=== PATIENT | female | born 1965 | race Caucasian/White ===

== ENCOUNTER 2020-10-12 15:46 | Outpatient (CLI) | payer OTHER, SELFPAY ==
--- NOTE | ~2020-10-12 | MM_ITS ---
EXAMINATION: MM screening adri BI w ryan HISTORY: Screening mammogram, family history of breast cancer in her mother. TECHNIQUE: Craniocaudal and mediolateral oblique 3-D tomosynthesis images were obtained and synthetic 2-D images were generated. CAD analysis was submitted and interpreted. COMPARISON: 03/13/2018 BREAST PARENCHYMAL COMPOSITION: The breasts are heterogeneously dense, which may obscure small masses . FINDINGS: There is no evidence of suspicious mass, calcification, or architectural distortion to sugg est malignancy in either breast. There has been no suspicious interval change. IMPRESSION: 1. No mammographic evidence of malignancy. 2. Recommend routine screening mammography in one year. BI-RADS Category 1: Negative Reviewed, dictated and finalized at location A.
== END 2020-10-12 15:47 | disposition home or self-care (01) ==
LOC: ANHIMG 15:48
PROVIDERS: PCP Nurse Practitioner Family; Visit Provider Nurse Practitioner Family
DX: Z12.31 Encounter for screening mammogram for malignant neoplasm of breast (principal)
CPT/HCPCS: 77063; 77067

== ENCOUNTER 2021-01-03 12:24 | Outpatient (CLI) | payer OTHER, SELFPAY ==
[2021-01-03 14:51] LABS: SARS-CoV-2 RNA PCR Negative (Negative)
== END 2021-01-03 12:25 | disposition home or self-care (01) ==
LOC: CHSLAB 12:28
PROVIDERS: PCP Nurse Practitioner Family; Visit Provider Nurse Practitioner Family
DX: R05 Cough (principal); Z20.822 Contact with and (suspected) exposure to COVID-19
CPT/HCPCS: C9803; U0003; U0005

== ENCOUNTER 2021-05-08 02:53 | Day surgery (SDC) | payer OTHER, SELFPAY ==
[2021-04-20 14:26] VITALS: BMI 27.6
--- NOTE | 2021-05-05 16:31 | PM.HPGS ---
History of Present Illness History of Present Illness Consent: Risks, benefits, and alternatives have been discussed and questions answered. Patient agrees to proceed with procedure. Chief complaint: hx colon polyps Narrative: Fouzia Lan is a 55 year old female with history of colon polyps and also family history of colon cancer. her last colonoscopy was nearly 4 years ago Review of Systems Review of Systems: All systems reviewed & are unremarkable except as noted in HPI and below PMFSH Family History Family History Sibling Depression Mother Hypertension Colon polyp Family history of malignant neoplasm of breast in first degree relative Father Family history of lung cancer Social History Social History Smoking packs per day: 0.5 Smoking cigarettes per day: 10.0 Years smoked: 35 Smoking pack-years: 17.50 Smoking status: Former smoker Tobacco type: cigarettes Alcohol intake: current Drinks per week: 10 Living arrangements: with family Spiritual care concerns: No Meds Home Medications and Allergies Home Medications Medication Instructions Recorded Confirmed Type citalopram 20 mg PO DAILY 04/10/19 05/08/21 History metoprolol tartrate 25 mg PO DAILY 04/10/19 05/08/21 History omeprazole 20 mg PO DAILY 04/20/21 05/08/21 History Allergies Allergy/AdvReac Type Severity Reaction Status Date / Time No Known Allergies Allergy Verified 05/08/21 07:36 Exam Const: General: alert Orientation/consciousness: patient oriented x3 Resp: Auscultation: clear to auscultation bilaterally Cardio: Rhythm: regular rhythm GI: GI Palp: Yes Soft to palpation and No Tenderness to palpation present (GI) Neuro: General: patient oriented x3 Assessment and Plan Assessment and plan (1) Colon cancer screening: Code(s): Z12.11 - Encounter for screening for malignant neoplasm of colon Status: Acute Assessment and Plan: Colonoscopy with possible biopsy or polypectomy or cautery or injection of substances.
[2021-05-08 07:37] VITALS: BP 145/96; PULSE 71; RESP 16; TEMP 37.1; O2SAT 98
[2021-05-08] MEDS: LACTATED RINGERS 1,000 ML 150 ML IV CONT (07:41)
--- NOTE | 2021-05-08 08:07 | P.PNAN_ITS ---
Anes - Initial Pre Proc Eval Procedure: Operation Date: 05/08/21 08:30 Proposed Procedures p Screening Colonoscopy - Mat Lockhart MD Date/Time: 05/08/21 08:07 Surgeon: Mat Lockhart MD Pre Op Diagnosis: hx colon polyps Patient Data Age: 55 Gender: F Height: 1.63 m Weight: 75 kg Last Vital Signs Temp 98.7 F 05/08/21 07:37 Pulse 71 05/08/21 07:37 Resp 16 05/08/21 07:37 BP 145/96 H 05/08/21 07:37 Pulse Ox 98 05/08/21 07:37 Allergies Allergy/AdvReac Type Severity Reaction Status Date / Time No Known Allergies Allergy Verified 05/08/21 07:36 Home Medications Medication Instructions Recorded Confirmed Type citalopram 20 mg PO DAILY 04/10/19 05/08/21 History metoprolol tartrate 25 mg PO DAILY 04/10/19 05/08/21 History omeprazole 20 mg PO DAILY 04/20/21 05/08/21 History Patient hx anesthesia problems: none Family hx anesthesia problems: none Results Review: All pre-operative results and documents have been reviewed as part of the pre-operative evaluation. [facility] Past Medical History Medical History (Updated 05/08/21 @ 08:04 by Nickolas Griffin MD) Hypertension Mitral valve prolapse Family History Family History Sibling Depression Mother Hypertension Colon polyp Family history of malignant neoplasm of breast in first degree relative Father Family history of lung cancer Social History Social History Smoking packs per day: 0.5 Smoking cigarettes per day: 10.0 Years smoked: 35 Smoking pack-years: 17.50 Smoking status: Former smoker Tobacco type: cigarettes Alcohol intake: current Drinks per week: 10 Living arrangements: with family Spiritual care concerns: No Anes - Eval Final PreProcedure Day of Procedure 05/08/21 08:07 Patient weight: overweight Heart: regular rate and rhythm Lungs: clear to auscultation Airway: Mallampati scale class II Neurological: alert and oriented Last oral intake: >/= 8 hours ASA classification: III Emergent: no Anesthetic plan: proceed Anesthesia type and monitoring: general GIVS and standard monitoring Results Review: All pre-operative results and documents have been reviewed as part of the pre-operative evaluation. Informed Consent: The patient's anesthetic plan and its attendant risks and benefits were discussed with the patient/family/POA. Questions were solicited and answers provided to the satisfaction of the patient/family/POA.
[2021-05-08 08:38] VITALS: BP 111/68; PULSE 85; RESP 23; O2SAT 95
[2021-05-08 08:48] VITALS: BP 118/62; PULSE 78; RESP 24; O2SAT 97
[2021-05-08 08:58] VITALS: BP 126/65; PULSE 76; RESP 20; O2SAT 91
== END 2021-05-08 09:11 | disposition home or self-care (01) ==
PROVIDERS: PCP Nurse Practitioner Family; Visit Provider Internal Medicine Gastroenterology
PROC: 0DJD8ZZ Inspection of Lower Intestinal Tract, Via Natural or Artificial Opening Endoscopic (ICD-10-PCS; CPT 45378; principal; 2021-05-08 08:30)
DX: Z12.11 Encounter for screening for malignant neoplasm of colon (principal); Z80.0 Family history of malignant neoplasm of digestive organs; Z87.891 Personal history of nicotine dependence
CPT/HCPCS: 45378; J2704; J7120

== ENCOUNTER 2021-12-08 12:36 | Outpatient (CLI) | payer OTHER, SELFPAY ==
--- NOTE | 2021-12-08 | ECHO_ITS ---
Patient Info Name: Fouzia Lan Age: 56 years : 1965 Gender: Female Ht: 64 in Wt: 160 lbs BSA: 1.83 m2 HR: 71 bpm BP: 148 / 94 mmHg Technical Quality: Good Exam Date: 12/08/2021 2:06 PM Exam Location: [facility] Patient Status: Outpatient Admit Date: 12/08/2021 Staff Ordering Physician: Ronnell, Abrahan Mcbride MD Animal Husbandry Technician: Ely Martin RDCS Attending Provider: Tori, Abrahan Mcbride MD Referring Physician: Ronnell MARQUEZ; Exam Type: CA echo doppler color flow Study Info Indications R76.8 - POSITIVE ROMEO (ANTINUCLEAR ANTIBODY) 173.00 - RAYNAUDS DISEASE WITHOUT GANGRENE Complete two-dimensional, color flow and Doppler transthoracic echocardiogram is performed. Summary 1. Complete two-dimensional, color flow and Doppler transthoracic echocardiogram is performed. 2. Left ventricular chamber dimension is normal. 3. Left ventricular systolic function is normal, estimated at 65-70%. 4. There is mildly increased left ventricular wall thickness. 5. The left ventricular diastolic function is grade II diastolic dysfunction. 6. E/e' 15 is elevated. 7. Mild right ventricular hypertrophy. 8. Left atrial chamber dimension is mildly enlarged. 9. Right atrial chamber dimension is mildly enlarged. 10. No pulmonary hypertension, estimated pulmonary arterial systolic pressure is 36 mmHg. 11. There is small circumferential pericardial effusion measured at 0.7 cm posteriorly. Left Ventricle E/e' 15 is elevated. Left ventricular chamber dimension is normal. Left ventricular systolic function is normal, estimated at 65-70%. There is mildly increased left ventricular wall thickness. The left ventricular diastolic function is grade II diastolic dysfunction. Right Ventricle Right ventricular systolic function is normal and with normal TAPSE 2.2 cm. Mild right ventricular hypertrophy. Right ventricular chamber dimension is normal. Left Atria Left atrial chamber dimension is mildly enlarged. Right Atria Right atrial chamber dimension is mildly enlarged. Aortic Valve The aortic valve is trileaflet. There is no aortic valve stenosis. There is no aortic valve regurgitation. Pulmonic Valve There is no pulmonic regurgitation. Mitral Valve There is no mitral valve stenosis. There is no mitral valve regurgitation. Tricuspid Valve There is no tricuspid valve regurgitation. No pulmonary hypertension, estimated pulmonary arterial systolic pressure is 36 mmHg. Pericardium/Pleural There is small circumferential pericardial effusion measured at 0.7 cm posteriorly. No cardiac tamponade. Inferior Vena Cava Normal inferior vena cava with >50% collapse upon inspiration consistent with normal right atrial pressure, 5 mmHg. Aorta The aortic root size at the sinus of Valsalva is normal. Left Ventricular Outflow Tract Name Value Normal LVOT 2D LVOT Diameter 2.0 cm LVOT Doppler LVOT Peak Gradient 4 mmHg LVOT Mean Gradient 2 mmHg LVOT VTI 18 cm LVOT VTI/AV VTI Ratio 0.7
--- NOTE | 2021-12-08 15:01 | WPDPFTINT ---
PFT Procedure Performed PFT Procedure Performed Plethysmography (Lung Vol) Diffusing Cap (DLCO) Flow Vol Loop Spirometry w/o Bronchodil PFT Interpretation This is a pulmonary function test with spirometry, plethysmography and diffusing capacity. The test was performed and results interpreted in accordance with the 2019 and 2005 ATS/ERS Task Force guidelines respectively using the Global Lung Function Initiative-2012 reference equations. Patient demonstrated good effort and cooperation. Reproducibility criteria were met. The quality of the spirometry maneuver was Grade B. Findings: Spirometry: there is decreased maximal expiratory airflow at low lung volumes with a concave expiratory flow tracing. The contour the inspiratory flow tracing is normal. The FVC is 2.72 L, 83% predicted. The FEV1 is 1.84 L, 71% predicted. The FEV1: FVC ratio 68%. Plethysmography: The total lung capacity is 4.59 L, 90% predicted. The functional residual capacity is 2.19 L, 76% predicted. The residual volume is 1.78 L, 92% predicted. Diffusion capacity: The diffusion capacity unadjusted for hemoglobin and carboxyhemoglobin is 9.2, 42% predicted. Diffusing capacity adjusted for alveolar volume is 2.40, 54% predicted. Impression: The spirometry is normal without evidence of an obstructive abnormality. The lung volumes are normal. The diffusing capacity unadjusted for hemoglobin is moderately decreased and remains moderately decreased when adjusted for alveolar volume. There are no prior studies for comparison
== END 2021-12-08 12:37 | disposition home or self-care (01) ==
LOC: ANHPFT 12:37
PROVIDERS: PCP Nurse Practitioner Family; Visit Provider Internal Medicine Rheumatology
DX: I73.00 Raynaud's syndrome without gangrene (principal)
CPT/HCPCS: 93306; 94375; 94726; 94729

== ENCOUNTER 2022-04-24 07:04 | Outpatient (CLI) | payer OTHER, SELFPAY ==
[2022-04-24 07:48] LABS: Basophils Percent Auto 0.4 % (0.2-1.2); Eosinophils Absolute Auto 0.3 K/mm3 (0-0.3); Eosinophils Percent Auto 4.1 % (0-4.4); Hematocrit 45.7 % (37.0-47.0); Immature Granulocyte Absolute 0.03 K/mm3 (0.00-0.031); Immature Granulocyte Percent A 0.4 % (0-0.5); Lymphocytes Absolute Auto 1.51 K/mm3 (0.9-3.2); Lymphocytes Percent Auto 22.3 % (18.3-44.2); Mean Corpuscular HGB Conc 32.8 g/dl (32-36); Mean Corpuscular Hemoglobin 30.7 pg (26-34); Mean Corpuscular Volume 93.5 fl (80-100); Mean Platelet Volume 10.7 fl (7.4-10.4); Monocytes Absolute Auto 0.7 K/mm3 (0.1-0.6); Monocytes Percent Auto 10.5 % (2.6-8.5); Neutrophils Absolute Auto 4.2 K/mm3 (1.3-6.7); Neutrophils Percent Auto 62.3 % (45.5-73.1); Platelet Count Result 169 k/mm3 (150-375); Red Blood Count 4.89 M/mm3 (4.2-5.4); Red Cell Distribution Width 14.6 % (11.5-14.5); White Blood Count 6.8 K/mm3 (4.5-10.0)
[2022-04-24 07:58] LABS: Alanine Aminotransferase 24 U/L (6-35); Albumin Level 4.4 g/dL (3.5-5.1); Alkaline Phosphatase 70 U/L (38-126); Anion Gap 8 mmol/L (8-16); Aspartate Amino Transferase 25 U/L (14-36); Bilirubin,Total 0.6 mg/dL (0.2-1.3); Blood Urea Nitrogen 16 mg/dL (7-17); CRP < 0.5 mg/dL (<1.0); Calcium 9.2 mg/dL (8.4-10.2); Carbon Dioxide 26 mmol/L (22-30); Chloride 108 mmol/L (98-107); Creatine Kinase 109 U/L (30-135); Estimated Glomerular Filt Rate 42; Glucose 94 mg/dL (65-110); Lactate Dehydrogenase 168 U/L (120-246); Potassium 3.9 mmol/L (3.4-5.0); Sodium 142 mmol/L (137-145)
[2022-04-24 09:34] LABS: Erythrocyte Sedimentation Rate 7 mm/hr (0-20)
[2022-04-30 13:24] LABS: Lupus dRVVT Screen 39 sec (<=45); PTT-LA Screen 36 sec (<=40)
[2022-05-05 13:46] LABS: TPMT Activity 17
== END 2022-04-24 07:05 | disposition home or self-care (01) ==
PROVIDERS: PCP Nurse Practitioner Family; Visit Provider Internal Medicine Rheumatology
DX: M34.9 Systemic sclerosis, unspecified (principal)
CPT/HCPCS: 36415; 80053; 82085; 82550; 82657; 83615; 85025; 85613; 85652; 85730; 86140; 86146

== ENCOUNTER 2022-09-26 07:54 | Outpatient (CLI) | payer OTHER, SELFPAY ==
[2022-09-26 08:30] LABS: Basophils Percent Auto 0.4 % (0.2-1.2); Eosinophils Absolute Auto 0.3 K/mm3 (0-0.3); Eosinophils Percent Auto 3.8 % (0-4.4); Hematocrit 41.8 % (37.0-47.0); Hemoglobin 13.6 g/dL (12.0-15.0); Immature Granulocyte Absolute 0.03 K/mm3 (0.00-0.031); Immature Granulocyte Percent A 0.4 % (0-0.5); Lymphocytes Percent Auto 22.2 % (18.3-44.2); Mean Corpuscular HGB Conc 32.5 g/dl (32-36); Mean Corpuscular Hemoglobin 30.3 pg (26-34); Mean Corpuscular Volume 93.1 fl (80-100); Mean Platelet Volume 10.5 fl (7.4-10.4); Monocytes Percent Auto 13.2 % (2.6-8.5); Neutrophils Absolute Auto 4.6 K/mm3 (1.3-6.7); Platelet Count Result 194 k/mm3 (150-375); Red Blood Count 4.49 M/mm3 (4.2-5.4); White Blood Count 7.7 K/mm3 (4.5-10.0)
[2022-09-26 08:33] LABS: Appearance Urine Cloudy (Clear); Bacteria Urine None Seen /hpf; Bilirubin Urine Negative (Negative); Blood Urine Negative (Negative); Color Urine Yellow (Yellow); Glucose Urine UA Negative (Negative); Ketones Urine Negative (Negative); Leukocyte Esterase Ur 1+ LEU/UL (Negative); Nitrate Urine Negative (Negative); Non Pathogenic Casts 0-2; Protein Urine 1+ mg/dL (Negative); RBC Urine 0-2 /hpf (0-2); Specific Grav Ur 1.014 (1.001-1.035); Squamous Epithelial Cell Urine Few /hpf (Few); Urobilinogen Urine 0.2 mg/dL (<2.0); pH Urine 5.5 (5.0-9.0)
[2022-09-26 08:44] LABS: Alanine Aminotransferase 48 U/L (6-35); Alkaline Phosphatase 78 U/L (38-126); Anion Gap 8 mmol/L (8-16); Aspartate Amino Transferase 24 U/L (14-36); Bilirubin,Total 0.7 mg/dL (0.2-1.3); Blood Urea Nitrogen 21 mg/dL (7-17); CRP 0.5 mg/dL (<1.0); Calcium 8.8 mg/dL (8.4-10.2); Carbon Dioxide 23 mmol/L (22-30); Chloride 109 mmol/L (98-107); Creatine Kinase 96 U/L (30-135); Estimated Glomerular Filt Rate 46; Glucose 101 mg/dL (65-110); Sodium 140 mmol/L (137-145)
[2022-09-26 08:44] LABS: Add Urine Microscopic? YES
[2022-09-26 09:20] LABS: Erythrocyte Sedimentation Rate 13 mm/hr (0-20)
[2022-09-30 04:59] LABS: Aldolase 5.4 U/L (<=8.1)
== END 2022-09-26 07:55 | disposition home or self-care (01) ==
PROVIDERS: PCP Nurse Practitioner Family; Visit Provider Internal Medicine Rheumatology
DX: R76.8 Other specified abnormal immunological findings in serum (principal); M34.9 Systemic sclerosis, unspecified
CPT/HCPCS: 36415; 80053; 81001; 82085; 82550; 85025; 85652; 86140; 87086; 87088

== ENCOUNTER 2022-10-25 11:40 | Outpatient (CLI) | payer OTHER, SELFPAY ==
[2022-10-25 12:08] LABS: Basophils Percent Auto 0.4 % (0.2-1.2); Eosinophils Absolute Auto 0.2 K/mm3 (0-0.3); Eosinophils Percent Auto 1.9 % (0-4.4); Hematocrit 44.2 % (37.0-47.0); Hemoglobin 14.2 g/dL (12.0-15.0); Immature Granulocyte Absolute 0.02 K/mm3 (0.00-0.031); Immature Granulocyte Percent A 0.2 % (0-0.5); Lymphocytes Absolute Auto 1.39 K/mm3 (0.9-3.2); Lymphocytes Percent Auto 16.7 % (18.3-44.2); Mean Corpuscular HGB Conc 32.1 g/dl (32-36); Mean Corpuscular Hemoglobin 29.7 pg (26-34); Mean Corpuscular Volume 92.5 fl (80-100); Mean Platelet Volume 10.6 fl (7.4-10.4); Monocytes Absolute Auto 0.8 K/mm3 (0.1-0.6); Monocytes Percent Auto 9.3 % (2.6-8.5); Neutrophils Percent Auto 71.5 % (45.5-73.1); Platelet Count Result 191 k/mm3 (150-375); Red Blood Count 4.78 M/mm3 (4.2-5.4); Red Cell Distribution Width 13.8 % (11.5-14.5); White Blood Count 8.3 K/mm3 (4.5-10.0)
[2022-10-25 12:12] LABS: Appearance Urine Clear (Clear); Bacteria Urine None Seen /hpf; Bilirubin Urine Negative (Negative); Blood Urine Negative (Negative); Color Urine Yellow (Yellow); Glucose Urine UA Negative (Negative); Ketones Urine Negative (Negative); Leukocyte Esterase Ur Trace LEU/UL (Negative); Nitrate Urine Negative (Negative); Non Pathogenic Casts 0-2; Protein Urine Trace mg/dL (Negative); RBC Urine 0-2 /hpf (0-2); Specific Grav Ur 1.008 (1.001-1.035); Squamous Epithelial Cell Urine None seen /hpf (Few); Urobilinogen Urine 0.2 mg/dL (<2.0); WBC Urine 0-5 /hpf; pH Urine 5.5 (5.0-9.0)
[2022-10-25 12:31] LABS: Add Urine Microscopic? YES
[2022-10-25 12:32] LABS: Alanine Aminotransferase 22 U/L (6-35); Albumin Level 4.2 g/dL (3.5-5.1); Alkaline Phosphatase 63 U/L (38-126); Anion Gap 9 mmol/L (8-16); Aspartate Amino Transferase 24 U/L (14-36); Bilirubin,Total 0.7 mg/dL (0.2-1.3); Blood Urea Nitrogen 23 mg/dL (7-17); CRP < 0.5 mg/dL (<1.0); Calcium 8.9 mg/dL (8.4-10.2); Carbon Dioxide 23 mmol/L (22-30); Chloride 106 mmol/L (98-107); Creatine Kinase 101 U/L (30-135); Estimated Glomerular Filt Rate 46; Glucose 101 mg/dL (65-110); Sodium 138 mmol/L (137-145)
[2022-10-25 13:47] LABS: Erythrocyte Sedimentation Rate 8 mm/hr (0-20)
[2022-10-31 18:28] LABS: Aldolase 5.2 U/L (<=8.1)
== END 2022-10-25 11:41 | disposition home or self-care (01) ==
LOC: ANHLAB 11:44
PROVIDERS: PCP Nurse Practitioner Family; Visit Provider Internal Medicine Rheumatology
DX: M34.9 Systemic sclerosis, unspecified (principal); Z51.81 Encounter for therapeutic drug level monitoring
CPT/HCPCS: 36415; 80053; 81001; 82085; 82550; 85025; 85652; 86140

== ENCOUNTER 2022-12-28 07:41 | Outpatient (CLI) | payer OTHER, SELFPAY ==
[2022-12-28 08:30] LABS: Basophils Percent Auto 0.6 % (0.2-1.2); Eosinophils Absolute Auto 0.2 K/mm3 (0-0.3); Eosinophils Percent Auto 2.4 % (0-4.4); Hematocrit 44.5 % (37.0-47.0); Hemoglobin 14.4 g/dL (12.0-15.0); Immature Granulocyte Absolute 0.02 K/mm3 (0.00-0.031); Immature Granulocyte Percent A 0.3 % (0-0.5); Lymphocytes Absolute Auto 1.51 K/mm3 (0.9-3.2); Lymphocytes Percent Auto 22.4 % (18.3-44.2); Mean Corpuscular HGB Conc 32.4 g/dl (32-36); Mean Corpuscular Hemoglobin 29.6 pg (26-34); Mean Corpuscular Volume 91.6 fl (80-100); Monocytes Absolute Auto 0.7 K/mm3 (0.1-0.6); Monocytes Percent Auto 9.9 % (2.6-8.5); Neutrophils Absolute Auto 4.4 K/mm3 (1.3-6.7); Neutrophils Percent Auto 64.4 % (45.5-73.1); Platelet Count Result 195 k/mm3 (150-375); Red Blood Count 4.86 M/mm3 (4.2-5.4); Red Cell Distribution Width 14.1 % (11.5-14.5); White Blood Count 6.8 K/mm3 (4.5-10.0)
[2022-12-28 08:40] LABS: Appearance Urine Clear (Clear); Bacteria Urine Rare /hpf; Bilirubin Urine Negative (Negative); Blood Urine Negative (Negative); Color Urine Yellow (Yellow); Glucose Urine UA Negative (Negative); Ketones Urine Negative (Negative); Leukocyte Esterase Ur 1+ LEU/UL (Negative); Nitrate Urine Negative (Negative); Non Pathogenic Casts 0-2; Protein Urine 1+ mg/dL (Negative); RBC Urine 0-2 /hpf (0-2); Specific Grav Ur 1.014 (1.001-1.035); Squamous Epithelial Cell Urine Few /hpf (Few); Urobilinogen Urine 0.2 mg/dL (<2.0); pH Urine 5.5 (5.0-9.0)
[2022-12-28 08:41] LABS: Add Urine Microscopic? YES
[2022-12-28 08:51] LABS: Alanine Aminotransferase 19 U/L (6-35); Albumin Level 4.3 g/dL (3.5-5.1); Alkaline Phosphatase 78 U/L (38-126); Anion Gap 8 mmol/L (8-16); Aspartate Amino Transferase 24 U/L (14-36); Bilirubin,Total 0.6 mg/dL (0.2-1.3); Blood Urea Nitrogen 18 mg/dL (7-17); CRP < 0.5 mg/dL (<1.0); Calcium 9.2 mg/dL (8.4-10.2); Carbon Dioxide 25 mmol/L (22-30); Chloride 107 mmol/L (98-107); Creatine Kinase 113 U/L (30-135); Estimated Glomerular Filt Rate 46; Glucose 84 mg/dL (65-110); Potassium 4.2 mmol/L (3.4-5.0); Sodium 140 mmol/L (137-145)
[2022-12-28 11:17] LABS: Erythrocyte Sedimentation Rate 11 mm/hr (0-20)
[2023-01-01 22:17] LABS: Aldolase 6.1 U/L (<=8.1)
== END 2022-12-28 07:42 | disposition home or self-care (01) ==
PROVIDERS: Visit Provider Internal Medicine Rheumatology
DX: Z51.81 Encounter for therapeutic drug level monitoring (principal); M34.9 Systemic sclerosis, unspecified
CPT/HCPCS: 36415; 80053; 81001; 82085; 82550; 85025; 85652; 86140; 87086; 87088

== ENCOUNTER 2023-02-08 07:59 | Outpatient (CLI) | payer OTHER, SELFPAY ==
[2023-02-08 09:02] LABS: Cholesterol 254 mg/dL (0-200); HDL Direct 47 mg/dL; Triglycerides 183 mg/dL (<150)
[2023-02-08 09:13] LABS: LDL Cholesterol Direct 148 mg/dL
== END 2023-02-08 08:00 | disposition home or self-care (01) ==
PROVIDERS: Visit Provider Nurse Practitioner Family
DX: Z13.220 Encounter for screening for lipoid disorders (principal); Z13.29 Encounter for screening for other suspected endocrine disorder
CPT/HCPCS: 36415; 80053; 80061; 81001; 82085; 82550; 84443; 85025; 85652; 86140; 87086; 87088

== ENCOUNTER 2023-08-14 08:10 | Outpatient (RCR) | payer OTHER, SELFPAY ==
[2023-08-14 08:44] LABS: Appearance Urine Clear (Clear); Bacteria Urine None Seen /hpf; Bilirubin Urine Negative (Negative); Blood Urine Negative (Negative); Color Urine Yellow (Yellow); Glucose Urine UA Negative (Negative); Ketones Urine Negative (Negative); Leukocyte Esterase Ur Negative LEU/UL (Negative); Nitrate Urine Negative (Negative); Non Pathogenic Casts 0-2; Protein Urine 1+ mg/dL (Negative); RBC Urine 0-2 /hpf (0-2); Specific Grav Ur 1.014 (1.001-1.035); Squamous Epithelial Cell Urine None Seen /hpf (Few); Urobilinogen Urine 0.2 mg/dL (<2.0); WBC Urine 0-5 /hpf (0-3); pH Urine 5.5 (5.0-9.0)
[2023-08-14 08:51] LABS: Add Urine Microscopic? YES
[2023-08-14 09:10] LABS: Alanine Aminotransferase 14 U/L (6-35); Albumin Level 4.1 g/dL (3.5-5.1); Alkaline Phosphatase 77 U/L (38-126); Anion Gap 7 mmol/L (8-16); Aspartate Amino Transferase 22 U/L (14-36); Bilirubin,Total 0.6 mg/dL (0.2-1.3); Blood Urea Nitrogen 20 mg/dL (7-17); CRP < 0.5 mg/dL (<1.0); Calcium 9.2 mg/dL (8.4-10.2); Carbon Dioxide 22 mmol/L (22-30); Chloride 109 mmol/L (98-107); Creatine Kinase 102 U/L (30-135); Estimated Glomerular Filt Rate 46; Glucose 95 mg/dL (65-110); Potassium 3.8 mmol/L (3.4-5.0); Sodium 138 mmol/L (137-145)
[2023-08-14 09:16] LABS: Basophils Percent Auto 0.4 % (0.2-1.2); Eosinophils Absolute Auto 0.2 K/mm3 (0-0.3); Eosinophils Percent Auto 3.1 % (0-4.4); Hematocrit 45.1 % (37.0-47.0); Hemoglobin 14.4 g/dL (12.0-15.0); Immature Granulocyte Absolute 0.03 K/mm3 (0.00-0.031); Immature Granulocyte Percent A 0.4 % (0-0.5); Lymphocytes Absolute Auto 1.63 K/mm3 (0.9-3.2); Mean Corpuscular HGB Conc 31.9 g/dl (32-36); Mean Corpuscular Hemoglobin 29.1 pg (26-34); Mean Corpuscular Volume 91.3 fl (80-100); Mean Platelet Volume 11.1 fl (7.4-10.4); Monocytes Absolute Auto 0.8 K/mm3 (0.1-0.6); Monocytes Percent Auto 10.3 % (2.6-8.5); Neutrophils Percent Auto 64.8 % (45.5-73.1); Platelet Count Result 183 k/mm3 (150-375); Red Blood Count 4.94 M/mm3 (4.2-5.4); Red Cell Distribution Width 14.8 % (11.5-14.5); White Blood Count 7.8 K/mm3 (4.5-10.0)
[2023-08-14 10:55] LABS: Erythrocyte Sedimentation Rate 13 mm/hr (0-20)
[2023-08-18 10:03] LABS: Aldolase 5.2 U/L (<=8.1)
== END 2023-11-12 23:59 | disposition home or self-care (01) ==
LOC: ANHLAB 08:10
PROVIDERS: Visit Provider Internal Medicine Rheumatology
DX: Z51.81 Encounter for therapeutic drug level monitoring (principal); M34.9 Systemic sclerosis, unspecified; Z79.899 Other long term (current) drug therapy
CPT/HCPCS: 36415; 80053; 82085; 82550; 85025; 85652; 86140

== ENCOUNTER 2023-08-28 08:50 | Emergency (ER) | payer OTHER, SELFPAY ==
[2023-08-28 09:01] VITALS: BP 127/84; PULSE 87; RESP 18; TEMP 36.9; O2SAT 97
--- NOTE | 2023-08-28 09:22 | ED.URI ---
HPI - URI/Sore Throat General Chief Complaint: Upper Respiratory Infection Stated Complaint: Sinus Infection Time Seen by Provider: 08/28/23 09:03 Source: patient and RN notes reviewed Mode of arrival: ambulatory Limitations: no limitations History of Present Illness HPI Narrative: Patient presents today with a 3 day history of nasal congestion, cough, bilateral ear pain, headache, sore throat. Denies fever. States she is short of breath at baseline, but no worse than normal. Currently rates her pain 2/10 has been taking ibuprofen and Mucinex with little relief. Reports that she took 2 doses of cefuroxime at home that was left over from a 's prescription, which did also not provide any relief. Patient has history of scleroderma, but takes no medication for it. Related Data Home Medications Medication Instructions Recorded Confirmed citalopram 20 mg tablet 40 mg PO DAILY 04/10/19 08/28/23 metoprolol tartrate 25 mg tablet 25 mg PO DAILY 04/10/19 08/28/23 omeprazole 20 mg capsule,delayed 20 mg PO DAILY 04/20/21 08/28/23 release mycophenolate mofetil 500 mg tablet 500 mg PO BID 08/28/23 08/28/23 nifedipine 30 mg tablet,extended 30 mg PO DAILY 08/28/23 08/28/23 release 24 hr Allergies Allergy/AdvReac Type Severity Reaction Status Date / Time No Known Allergies Allergy Verified 08/28/23 08:51 Review of Systems Review of Systems: CONSTITUTIONAL: Denies body aches, fever, chills, or sweats. EYES: Denies visual changes, redness, or discharge. ENT: Denies rhinorrhea. + congestion, sore throat, ear pain CARDIOVASCULAR: Denies chest pain, palpitations, or edema. RESPIRATORY: Denies worse dyspnea.+ cough GASTROINTESTINAL: Denies abdominal pain, nausea, vomiting, or diarrhea. GENITOURINARY: Denies dysuria or hematuria. SKIN: Denies rash, itching, or wounds. MUSCULOSKELETAL: Denies back pain, joint pain, or myalgia. NEUROLOGIC: Denies numbness, tingling, or weakness.+ headache PSYCH: Denies depression or anxiety. PMF Past Medical History Medical History Hypertension Mitral valve prolapse Family History Family History Sibling Depression Mother Hypertension Colon polyp Family history of malignant neoplasm of breast in first degree relative Father Family history of lung cancer Social History Social History Smoking packs per day: 0.5 Smoking cigarettes per day: 10.0 Years smoked: 35 Smoking pack-years: 17.50 Smoking status: Former smoker Tobacco type: cigarettes Alcohol intake: current Drinks per week: 10 Living arrangements: with family Spiritual care concerns: No Comments At time of signature, I have reviewed and agree with nursing past medical, surgical, social and family history unless otherwise noted. Please see nursing chart for further information. There is no relevant family history pertinent to the presenting complaint Exam Narrative: GENERAL: Mildly ill-appearing, well-nourished, and in no acute distress. HEAD: Normocephalic, atraumatic. EYES: EOMI. No redness or drainage. Conjunctivae normal. ENT: Mucous membranes pink and moist. Nares congestive. No rhinorrhea. Turbinates appear normal. TMs normal bilaterally. Throat normal. Uvula midline. NECK: Normal AROM. Supple. No lymphadenopathy. CHEST: No respiratory distress. Clear to auscultation. HEART: Regular rate and rhythm. No murmur appreciated. EXTREMITIES: Normal range of motion. No edema. SKIN: Warm, dry, no rash. Capillary refill normal. Normal skin turgor. NEURO: No focal deficits. Alert and oriented x3. Gait steady. PSYCH: Normal affect. No signs of depression or anxiety. Course Course Level of Care: Express Care Visit Vital Signs Vital signs: Vital Signs Temperature 98.4 F 08/28/23 09:01
== END 2023-08-28 09:22 | disposition home or self-care (01) ==
PROVIDERS: Emergency Provider Nurse Practitioner
DX: J06.9 Acute upper respiratory infection, unspecified (principal); Z20.822 Contact with and (suspected) exposure to COVID-19; Z87.891 Personal history of nicotine dependence; I10 Essential (primary) hypertension; I34.1 Nonrheumatic mitral (valve) prolapse; M34.9 Systemic sclerosis, unspecified
CPT/HCPCS: 87426; 87804; 99213; G0463

== ENCOUNTER 2023-11-21 07:43 | Outpatient (CLI) | payer OTHER, SELFPAY ==
[2023-11-21 08:47] LABS: Cholesterol 249 mg/dL (0-200); HDL Direct 56 mg/dL; Triglycerides 178 mg/dL (<150)
[2023-11-21 08:57] LABS: LDL Cholesterol Direct 154 mg/dL
[2023-11-21 09:11] LABS: Hemoglobin A1C 5.5 % (<5.7)
[2023-11-21 09:55] LABS: Free T4 Free Thyroxine Reflex 1.16 ng/dL (0.78-2.19)
[2023-11-21 10:55] LABS: Total Triiodothyronine (T3) 1.34 NG/ML (0.97-1.69)
== END 2023-11-21 07:44 | disposition home or self-care (01) ==
PROVIDERS: PCP Nurse Practitioner Family
DX: E78.5 Hyperlipidemia, unspecified (principal); R35.1 Nocturia; R53.83 Other fatigue
CPT/HCPCS: 36415; 80061; 83036; 84439; 84443; 84480

== ENCOUNTER 2023-12-13 11:42 | Outpatient (CLI) | payer OTHER, SELFPAY ==
[2023-12-13 12:36] LABS: Hematocrit 45.1 % (37.0-47.0); Hemoglobin 14.5 g/dL (12.0-15.0); Mean Corpuscular HGB Conc 32.2 g/dl (32-36); Mean Corpuscular Hemoglobin 29.5 pg (26-34); Mean Corpuscular Volume 91.9 fl (80-100); Mean Platelet Volume 11.2 fl (7.4-10.4); Platelet Count Result 198 k/mm3 (150-375); Red Blood Count 4.91 M/mm3 (4.2-5.4); Red Cell Distribution Width 13.9 % (11.5-14.5); White Blood Count 9.3 K/mm3 (4.5-10.0)
[2023-12-13 12:58] LABS: Alanine Aminotransferase 17 U/L (6-35); Albumin Level 4.4 g/dL (3.5-5.1); Alkaline Phosphatase 74 U/L (38-126); Anion Gap 11 mmol/L (4-12); Aspartate Amino Transferase 22 U/L (14-36); Bilirubin,Total 0.8 mg/dL (0.2-1.3); Blood Urea Nitrogen 18 mg/dL (7-17); CRP 0.6 mg/dL (<1.0); Calcium 9.3 mg/dL (8.4-10.2); Carbon Dioxide 24 mmol/L (22-30); Chloride 106 mmol/L (98-107); Creatine Kinase 84 U/L (30-135); Estimated Glomerular Filt Rate 46; Glucose 102 mg/dL (65-110); Potassium 3.8 mmol/L (3.4-5.0); Sodium 141 mmol/L (137-145)
[2023-12-13 13:06] LABS: Erythrocyte Sedimentation Rate 11 mm/hr (0-20)
[2023-12-16 15:43] LABS: Aldolase 6.5 U/L (< OR = 8.1)
== END 2023-12-13 11:43 | disposition home or self-care (01) ==
LOC: ANHLAB 11:45
PROVIDERS: PCP Nurse Practitioner Family; Visit Provider Internal Medicine Rheumatology
DX: M34.9 Systemic sclerosis, unspecified (principal)
CPT/HCPCS: 36415; 80053; 82085; 82550; 85027; 85652; 86140

== ENCOUNTER 2024-07-13 07:08 | Outpatient (CLI) | payer OTHER, SELFPAY ==
--- OUTSIDE RECORDS SUMMARY | 2024-07-13 07:13 | XMS_ITS | Patient Health Summary ---
Author Organization [facility] Address [address] [place] [address] Care Team Providers Care Mathematical Scientist Name Role Phone Elisa Harris Primary Care Provider [phone] Note from [facility],non-owned Affiliates and Associated Physician Practices is amultiple site organization consisting of ambulatory clinics and hospital sitesin [place], [place], [place] and [place]. This disclosure is being madepursuant to the Care Everywhere program and may not contain all information available regarding this patient. Last updated 18.[facility] Allergies No known active allergies Medications * Be aware that medications may not be up to date on this document. Alwaysverify current medications with the patient. * metoprolol succinate XL 24hr (TOPROL XL) 25 MG tablet(Started 09/20/2021) Take 1 (one) tablet by mouth once daily * gentamicin (GARAMYCIN) 0.1 % topical ointment(Started 10/19/2021) Apply to affected area 3 times daily Reasons: Skin Ulcer 2 refills by 10/19/2022 * omeprazole (PriLOSEC) 20 MG capsule Take 1 (one) capsule by mouth 2 times daily, before breakfast and supper * citalopram (CeleXA) 40 MG tablet Take 1 (one) tablet by mouth once daily * NIFEdipine CR osmotic 24hr (Procardia-XL) 60 MG tablet Take 1 (one) tablet by mouth once daily * albuterol HFA (Proventil; Ventolin; Proair) 108 (90 Base) MCG/ACT inhaler (Started 02/13/2024) INHALE 2 PUFFS BY MOUTH EVERY 4 HOURS NEEDED FOR SHORTNESS OF BREATH 3 refills by 02/12/2025 * guaiFENesin ER 12hr (Mucinex) 600 MG tablet Take 1 (one) tablet by mouth every 12 hours * torsemide (Demadex) 5 MG tablet(Started 05/29/2024) Take 1 (one) tablet by mouth once daily 3 refills by 05/29/2025 * tadalafil, PAH, (Adcirca) 20 MG tablet(Started 06/11/2024) * macitentan (Opsumit) 10 MG tablet Take 1 (one) tablet by mouth once daily Ended Medications* amoxicillin-clavulanate (Augmentin) 875-125 MG tablet(Started 05/22/2024)(Discontinued) Take 1 (one) tablet by mouth 2 times daily with morning and evening meal Active Problems Problem Noted Date Diagnosed Date 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 05/20/2024 Recurrent major depressive disorder, in [facility] n 05/18/2024 Stage 3a chronic kidney disease 05/18/2024 Metabolic acidosis 05/18/2024 Dyspnea on exertion 05/17/2024 Elevated liver enzymes 05/17/2024 Scleroderma 06/08/2022 Shortness of breath 05/24/2022 Breast cancer screening 02/17/2009 Erythrocytosis 01/13/2009 Screening for condition 01/13/2009 Mood swings 01/03/2009 Esophageal reflux 01/03/2009 Hypertension 12/31/2008 Stroke 12/31/2008 Kidney damage 12/31/2008 MVP (mitral valve prolapse) 12/31/2008 Indigestion 12/31/2008 Immunizations * INFLUENZA VACCINE, TRIV. (AFLURIA, FLUZONE TRIVALENT; 6MO+) (IIV3)(Given 03/24/2015, 03/29/2014) * FLU VACCINE QUAD IIV4 SPLIT 0.25 ML IM(Given 03/05/2017) Social History Tobacco Use Types Packs/Day Years Used Date Smoking Tobacco: Former Cigarettes Q uit: 06/2022 Smokeless Tobacco: Never Tobacco Cessation:Counseling Given: Not Answered Alcohol Use Standard Drinks/Week Comments Yes 0 (1 standard drink = 0.6 oz pur e alcohol) daily AUDIT-C Answer Date Recorded Q1: How often do you have a drink containing alcohol? 4 or more times a week 05/29/2024 Q2: How many drinks containi ng alcohol do you have on a typical day when you are drinking? 1 or 2 Q3: How often do you have si x or more drinks on one occasion? Never 05/29/2024 PHQ-2 Answer Date Recorded Patient Health Questionnaire-2 Score 0 06/22/2024 Sex and Gender Information Value Date Recorded Sex Assigned at Not on file Gender Identity Not on file Sexual Orientation Not on file Last Filed Vital Signs Vital Sign Reading Time Taken Comments Blood Pressure 120/72 07/08/2024 10:26 AM TRAVEL FREIGHT AND PASSENGER AGENT Pulse 84 07/08/2024 10:26 AM TRAVEL FREIGHT AND PASSENGER AGENT Temperature 36.7 C (98 F) 06/22/2024 1:09 PM TRAVEL FREIGHT AND PASSENGER AGENT Respiratory Rate 22 05/29/2024 1:45 PM TRAVEL FREIGHT AND PASSENGER AGENT Oxygen Saturation 92% 06/22/2024 1:09 PM TRAVEL FREIGHT AND PASSENGER AGENT Inhaled Oxygen Concentration - - Weight 74.8 kg (165 lb) 07/08/2024 10:26 AM TRAVEL FREIGHT AND PASSENGER AGENT Height 162.6 cm (5' 4 ) 07/08/2024 10:26 AM TRAVEL FREIGHT AND PASSENGER AGENT Body Mass Index 28.32 07/08/2024 10:26 AM TRAVEL FREIGHT AND PASSENGER AGENT Procedures * LAB RESULTS ORDER(Performed 07/01/2024) * CCL RIGHT HEART CATH(Performed 05/29/2024) Performed for 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) * RESPIRATORY PANEL WITH SARS-COV-2 BY PCR ([facility])(Performed 05/18/2024) Performed for Dyspnea on exertion * CARDIAC EKG ORDER(Performed 05/18/2024) * ECHO COMPLETE W CONTRAST(Performed 05/18/2024) Performed for Dyspnea on exertion, Shortness of breath * PT EVAL AND TREAT(Performed 05/18/2024) * COMPREHENSIVE METABOLIC PANEL(Performed 05/18/2024) Performed for Elevated liver enzymes * CT CHEST WO CONTRAST(Performed 05/17/2024) Performed for SOB (shortness of breath) * XR CHEST 1VW PORTABLE(Performed 05/17/2024) Performed for SOB (shortness of breath) * TROPONIN-I HIGH SENSITIVE REFLEX 1HOUR(Performed 05/17/2024) * EKG 12-LEAD(Performed 05/17/2024) Performed for SOB (shortness of breath) * B-TYPE NATRIURETIC PEPTIDE(Performed 05/17/2024) * TROPONIN-I HIGH SENSITIVE BASELINE + 1HR(Performed 05/17/2024) * COMPREHENSIVE METABOLIC PANEL(Performed 05/17/2024) * CBC W AUTO DIFFERENTIAL(Performed 05/17/2024) * PFT OXYGEN DESATURATION STUDY(Performed 09/19/2023) Performed for Dyspnea on exertion * COMPLETE PFT W/WO BRONCHODILATOR(Performed 09/03/2023) Performed for Shortness of breath * CT CHEST WO CONTRAST(Performed 09/03/2023) Performed for Shortness of breath * ECHO COMPLETE(Performed 09/03/2023) Performed for Shortness of breath * LAB RESULTS ORDER(Performed 01/02/2023) * LAB RESULTS ORDER(Performed 12/31/2022) * LAB RESULTS ORDER(Performed 12/28/2022) * LAB RESULTS ORDER(Performed 12/28/2022) * LAB RESULTS ORDER(Performed 12/28/2022) * LAB RESULTS ORDER(Performed 11/01/2022) * LAB RESULTS ORDER(Performed 10/25/2022) * LAB RESULTS ORDER(Performed 10/25/2022) * LAB RESULTS ORDER(Performed 10/25/2022) * LAB RESULTS ORDER(Performed 10/17/2022) * CARDIAC EKG ORDER(Performed 08/09/2022) * ECHO STRESS W BICYCLE(Performed 08/08/2022) Performed for Shortness of breath, Primary hypertension, Cerebrovascular accident (CVA), unspecified mechanism (HCC), Injury of kidney, unspecified laterality, subsequent encounter, Gastroesophageal reflux disease without esophagitis, Scleroderma (HCC) * PFT OXYGEN DESATURATION STUDY(Performed 08/02/2022) Performed for Shortness of breath * SIX MINUTE WALK(Performed 08/02/2022) Performed for Shortness of breath * PFT-LAB(Performed 08/02/2022) Performed for Scleroderma (HCC) * CT CHEST WO CONT AND HIRES(Performed 08/02/2022) Performed for Scleroderma (HCC) * PROC EKG IN CLINIC(Performed 06/08/2022) Performed for Shortness of breath, Primary hypertension, Cerebrovascular accident (CVA), unspecified mechanism (HCC), Injury of kidney, unspecified laterality, subsequent encounter, Gastroesophageal reflux disease without esophagitis, Scleroderma (HCC) * LAB RESULTS ORDER(Performed 04/24/2022) * LAB RESULTS ORDER(Performed 04/24/2022) * LAB RESULTS ORDER(Performed 04/24/2022) * LAB RESULTS ORDER(Performed 04/24/2022) * LAB RESULTS ORDER(Performed 04/24/2022) * LAB RESULTS ORDER(Performed 04/24/2022) * PFT(Performed 12/11/2021) * CARDIAC ECHOCARDIOGRAM COMPLETE ORDER(Performed 12/08/2021) * URINALYSIS W/MICROSCOPIC NO CULTURE(Performed 10/19/2021) Performed for Positive ROMEO (antinuclear antibody), Raynaud's disease without gangrene * ROMEO BLOOD SINGLE PATTERN(Performed 10/19/2021) Performed for Positive ROMEO (antinuclear antibody), Raynaud's disease without gangrene * CENTROMERE B ANTIBODIES(Performed 10/19/2021) Performed for Positive ROMEO (antinuclear antibody), Raynaud's disease without gangrene * SCLERODERMA COMPREHENSIVE AB PANEL(Performed 10/19/2021) Performed for Positive ROMEO (antinuclear antibody), Raynaud's disease without gangrene * ALDOLASE(Performed 10/19/2021) Performed for Positive ROMEO (antinuclear antibody), Raynaud's disease without gangrene * LDH BLOOD(Performed 10/19/2021) Performed for Positive ROMEO (antinuclear antibody), Raynaud's disease without gangrene * CK BLOOD(Performed 10/19/2021) Performed for Positive ROMEO (antinuclear antibody), Raynaud's disease without gangrene * ERYTHROCYTE SEDIMENTATION RATE(Performed 10/19/2021) Performed for Positive ROMEO (antinuclear antibody), Raynaud's disease without gangrene * C-REACTIVE PROTEIN(Performed 10/19/2021) Performed for Positive ROMEO (antinuclear antibody), Raynaud's disease without gangrene * COMPREHENSIVE METABOLIC PANEL(Performed 10/19/2021) Performed for Positive ROMEO (antinuclear antibody), Raynaud's disease without gangrene * CBC W AUTO DIFFERENTIAL(Performed 10/19/2021) Performed for Positive ROMEO (antinuclear antibody), Raynaud's disease without gangrene * DNA ANTIBODY DOUBLE STRANDED(Performed 10/19/2021) Performed for Positive ROMEO (antinuclear antibody), Raynaud's disease without gangrene * GUILLEN (SM) ANTIBODY FERMIN(Performed 10/19/2021) Performed for Positive ROMEO (antinuclear antibody), Raynaud's disease without gangrene * GUILLEN/ELECTRONIC EQUIPMENT REPAIRMEN (FERMIN) ANTIBODY IGG(Performed 10/19/2021) Performed for Positive ROMEO (antinuclear antibody), Raynaud's disease without gangrene * SS-B (SJOGREN'S) ANTIBODY(Performed 10/19/2021) Performed for Positive ROMEO (antinuclear antibody), Raynaud's disease without gangrene * HISTONE ANTIBODY(Performed 10/19/2021) Performed for Positive ROMEO (antinuclear antibody), Raynaud's disease without gangrene * CHROMATIN ANTIBODY(Performed 10/19/2021) Performed for Positive ROMEO (antinuclear antibody), Raynaud's disease without gangrene * SS-A (SJOGREN'S) 52+60 ANTIBODIES(Performed 10/19/2021) Performed for Positive ROMEO (antinuclear antibody), Raynaud's disease without gangrene * XR CHEST 2VW(Performed 10/19/2021) Performed for Positive ROMEO (antinuclear antibody), Raynaud's disease without gangrene * XR HAND LEFT 3VW OR MORE(Performed 10/19/2021) Performed for Positive ROMEO (antinuclear antibody), Raynaud's disease without gangrene * XR HAND RIGHT 3VW OR MORE(Performed 10/19/2021) Performed for Positive ROMEO (antinuclear antibody), Raynaud's disease without gangrene * CBC W AUTO DIFFERENTIAL(Performed 02/17/2009) Performed for Erythrocytosis * LIPID PROFILE(Performed 02/17/2009) Performed for Htn * COMPREHENSIVE METABOLIC PANEL(Performed 02/17/2009) Performed for Htn * GROSS + MICRO EXAM(Performed 05/14/2006) Results * LAB RESULTS ORDER (07/01/2024) Only the most recent of17 resultswithin the time period is included. Narrative 07/01/2024 Ordered by an unspecified provider. Scanned Document LAB - THERAPEUTIC DR DAVID MONITORING ORDERABLES * CCL RIGHT HEART CATH (05/29/2024 1:05 PM TRAVEL FREIGHT AND PASSENGER AGENT) Anatomical Region Laterality Modality X-Ray Angiograph y Narrative 05/29/2024 4:25 PM TRAVEL FREIGHT AND PASSENGER AGENT [facility]. Department of Pulmonary and Critical Care Medicine Right Heart Cath Post-Procedure Note Patient: Fouzia Lan / 58 year old / female : 1965 CSN: @CSN@ Today's date: 05/29/2024 Indications: Pulmonary hypertension Post-operative Diagnosis: pulmonary hypertension. Procedure/Anesthesia: Moderate sedation Surgeons:Brandon Hudson MD HPI: Fouzia Lan is a 58 year old female with history of scleroderma and PH her for RHC Procedure: Informed consent was obtained for the procedure, including possible sedation. Risks of lung perforation, hemorrhage, thrombosis, infection, arrhythmia, and adverse drug reaction were discussed. Time-Out Process performed, verified patient identification, verified procedure, verified site/side, verified correct patient position, special equipment/implants available. A time out was performed prior to the procedure. Sterile procedures employed-hand hygiene prior to donning gloves, gown, mask, barrier kit, full barrier drape. The skin above the rightinternal jugular vein was prepped with chlorohexidine. Local anesthesia was placed at the procedure line. The micropuncture needed was uses to the access the vein. The needle was withdrawn over the guide wire. The dilator and the introducer sheath were passed over the guide wire into the vein. The dilator and the guide wire was removed. Catheter was aspirated for blood and flushed with saline. A 7 arabic swan-em catheter was advanced through the sheath and the balloon was inflated. The catheter position was assessed by fluoroscopy guidance and monitoring of the pressure waveform. The catheter was advanced through the right atrium, right ventricle and into the pulmonary artery. Pressure waveform tracings were adequate. A pulmonary artery occlusion pressure was obtained after inflation of balloon with 0.75 - 1.0 ml of air. Ultrasound Guidance: yes Complications: None; patient tolerated the procedure well. Condition: stable. Results: Oxygen Saturation: RA: 69.1%, RV: 70.1%, PA: 70.6% Wedge saturation: 96.8 Hemodynamics: RAP: 8 mmHg, RV: 88/3 mmHg, PA: 93/34 mmHg, PCWP: 14 mmHg, mPAP: 54 mmHg TP mmHg MANAS:==> Cardiac output: 4.8 L/min, cardiac index: 2.5 L/min/m2, PVR: 8.3 serrano units Thermodilution==>: Cardiac output: 4.55 L/min, cardiac index: 2.56 L/min/m2, PVR: 8.8 serrano units Impression: 1. 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 Brandon Hudson MD 05/29/2024 Procedure Details Estimated Blood Loss: NONE mL Brandon Hudson MD CV CARDIAC CATH CUPI D PROCS * RESPIRATORY PANEL WITH SARS-COV-2 BY PCR ([facility]) (05/18/2024 5:43 PM TRAVEL FREIGHT AND PASSENGER AGENT) Adenovirus PCR Not detected Not detected 05/19/2024 12:59 AM TRAVEL FREIGHT AND PASSENGER AGENT [facility] Coronavirus 229E PCR Not detected Not detected 05/19/2024 12:59 AM TRAVEL FREIGHT AND PASSENGER AGENT [facility] Coronavirus HKU1 PCR Not detected Not detected 05/19/2024 12:59 AM TRAVEL FREIGHT AND PASSENGER AGENT [facility] Coronavirus NL63 PCR Not detected Not detected 05/19/2024 12:59 AM TRAV[employer] FREIGHT AND PASSENGER AGENT [facility] Coronavirus OC43 PCR Not detected Not detected 05/19/2024 12:59 AM TRAV[employer] FREIGHT AND PASSENGER AGENT [facility] COVID-19 PCR Not detected Not detected 05/19/2024 12:59 AM TRAV[employer] FREIGHT AND PASSENGER AGENT [facility] Human Metapneumovirus PCR Not detected Not detected 05/19/2024 12:59 AM TRAV[employer] AND PASSENGER AGENT [facility] Human Rhinovirus/Enterov irus PCR Not detected Not detected 05/19/2024 12:59 AM TRAV[employer]RE[employer] AND PASSENGER AGENT [facility] Influenza A PCR Not detected Not detected 05/19/2024 12:59 AM TRAV[employer]RE[employer] AND PASSENGER AGENT [facility] Influenza B PCR Not detected Not detected 05/19/2024 12:59 AM TRAV[employer] FRE[employer] AND PASSENGER AGENT [facility] Parainfluenza Virus 1 PCR Not detected Not detected 05/19/2024 12:59 AM TRAV[employer] AND PASSENGER AGENT [facility] Parainfluenza Virus 2 PCR Not detected Not detected 05/19/2024 12:59 AM TRAV[employer] AND PASSENGER AGENT [facility] Parainfluenza Virus 3 PCR Not detected Not detected 05/19/2024 12:59 AM TRA[employer] AND PASSENGER AGENT [facility] Parainfluenza Virus 4 PCR Not detected Not detected 05/19/2024 12:59 AM TRA[employer] AND PASSENGER AGENT [facility] Respiratory Syncytial Virus PCR Not detected Not detected 05/19/2024 12:59 AM TRA[employer] AND PASSENGER AGENT [facility] Bordetella parapertussis PCR Not detected Not detected 05/19/2024 12:59 AM TRA[employer] AND PASSENGER AGENT [facility] Bordetella pertussis PCR Not detected Not detected 05/19/2024 12:59 AM [facility] Chlamydia pneumoniae PCR Not detected Not detected 05/19/2024 12:59 AM [facility] Mycoplasma pneumoniae PCR Not detected Not detected 05/19/2024 12:59 AM [facility] Microbiology SPECIMEN FROM NASOPHARYNGEAL STRUCTURE / Unknown Collection / Unknown 05/18/2024 5:43 PM TRAVEL [employer]REIGHT AND PASSENGER AGENT 05/18/2024 6:00 PM TRA[employer]EL [employer]REIGHT AND PASSENGER AGENT Narrative [facility] - 05/19/2024 12:59 AM TRAVEL [employer]REIGHT AND PASSENGER AGENT This nucleic amplification assay has received FDA authorization via the [employer]. Mary Beth Carr MD LAB - MICROBIOLOGY O RDERABLES [facility] [address], [place] [address], [facility] [phone] * CARDIAC EKG ORDER (05/18/2024 1:13 PM TRAVEL FREIGHT AND PASSENGER AGENT) Only the most recent of2 resultswithin the time period is included. Narrative 05/18/2024 1:13 PM TRAVEL [employer]REIGHT AND PASSENGER AGENT Ordered by an unspecified provider. Scanned Document CARDIAC SERVICES ORD ERABLES * ECHO COMPLETE W CONTRAST (05/18/2024 11:20 AM TRAVEL FREIGHT AND PASSENGER AGENT) Only the most recent of2 resultswithin the time period is included. LA vol index 0.017 l/m [facility] Myocardial strain charge 2 unitless [facility] IVSd 2D 1.316 cm [facility] PACS LVIDd 4.582 cm [facility] I PACS LVIDs 2.604 cm [facility] CV [facility] I PACS LVOT diam 1.957 cm [facility] CV [facility] I PACS LVPWd 0.896 cm [facility] I PACS LV biplane EF 74.5 % [facility] LV A2C EF 72.686 % [facility] I PACS LV A4C EF 75.185 % [facility] I PACS LV EDV A2C 84.371 ml [facility] FU JI PACS LV EDV A4C 70.614 ml [facility]U [facility]I PACS LV ESV A2C 23.045 ml [facility] FU JI PACS LV ESV A4C 17.523 ml [facility] FU JI PACS LVOT pk jordin 114.901 cm/s [facility] CV F U PACS LVOT VTI 23.704 cm [facility] CV [facility] I PACS RV-nielson basal diam 4.172 cm [facility] CV [employer] PACS RVIDd 2.564 cm [facility] CV [facility] I PACS RVOT pk jordin 59.451 cm/s [facility] CV F U PACS RVOT VTI 14.566 cm [facility] CV [facility] I PACS LA size 4.088 cm [facility] CV [facility] I PACS LA vol BP 31.64 ml [facility] CV [facility] I PACS RA area 22.466 cm [facility] CV [employer] PACS AV mn grad 4.125 mmHg [facility] CV FU PACS AV pk jordin 151.933 cm/s [facility] I PACS AV VTI 30.817 cm [facility] I PACS MV A pk jordin 69.281 cm/s [facility] CV F U PACS MV E pk jordin 91.847 cm/s [facility] CV F U PACS MV E' lateral jordin 8.623 cm/s [facility] CV [employer] PACS MV mn grad 1.73 mmHg [facility] CV FU JI PACS MV VTI 26.13 cm [facility] CV [facility] I PACS PV pk jordin 87.765 cm/s [facility]SM CV [facility] I PACS PV VTI 21.772 cm [facility]SM CV [facility] I PACS TAPSE 1.362 cm [facility] CV [facility] I PACS Ascending aorta 2.807 cm [facility] IVC Diam Expiration 2.141 cm [facility] FUJI PACS Anatomical Region Laterality Modality Ultrasound 05/18/2024 10:3 5 AM TRAVEL [employer]REIGHT AND PASSENGER AGENT Narrative 05/18/2024 2:39 PM TRAVEL [employer] AND PASSENGER AGENT Summary * The left ventricle is normal in size, with hyperdynamic systolic function and an estimated ejection fraction of 74 % by biplane method of disks. Left ventricular wall motion is normal. * Right ventricle is normal in size with mildly reduced systolic function. * No hemodynamically significant valve disease. * The pulmonary artery systolic pressure is mildly elevated, 39 mmHg. * Dilated inferior vena cava with < 50% collapse upon inspiration consistent with significantly elevated right atrial pressure, 15 mmHg. * There is a small and circumferential pericardial effusion. Patient Info Name: Fouzia Lan Age: 58 years : 1965 Gender: Female Ht: 64 in Wt: 160 lb BSA: 1.83 m2 HR: 72 bpm BP: 141 / 81 mmHg Exam Date: 05/18/2024 10:35 AM Patient Status: OPO Study Site: [facility] Primary Location: [facility] EStudy Info Technical Quality: Adequate Exam Type: ECHO COMPLETE W CONTRAST Indications R06.09 - Dyspnea on exertion R06.02 - Shortness of breath Procedure(s) * A complete 2D, color Doppler, spectral Doppler, and M-Mode transthoracic echocardiogram was performed. * An Ultrasound Enhancing Agent (UEA) was utilized to enhance endocardial definition, opacify the left ventricle and further assess left ventricular function and wall motion. Contrast/Agitated Saline Contrast / Saline: Definity Amount: 0.50 ml Administered By: eCsar Díaz Reaction to Contrast: no Staff Referring Physician: Michael Howard Ordering Provider: Michael Howard Attending Physician: Michael Howard Popcorn Candy Maker: Cesar Díaz Left Ventricle The left ventricle is normal in size. Left ventricular systolic function is hyperdynamic with an estimated ejection fraction of 74 % by biplane method of disks. The left ventricular mass is normal. Left ventricular segmental wall motion is normal. The left ventricular diastolic function is indeterminate. Right Ventricle The right ventricle is normal in size. Right ventricular systolic function is mildly reduced. Left Atrium The left atrium is normal in size with a left atrial volume index of 17 ml/m2 by BP MOD. Right Atrium The right atrium is mildly dilated. Atrial Septum Interatrial septum not well visualized by 2D and color Doppler imaging. Aortic Valve The aortic valve is trileaflet. There is no aortic valve stenosis. There is no aortic valve regurgitation. Pulmonic Valve The pulmonic valve is grossly normal. There is no pulmonic valve stenosis. There is no significant pulmonic regurgitation. Mitral Valve The mitral valve is grossly normal. There is no mitral valve stenosis. There is trace mitral valve regurgitation. Tricuspid Valve The tricuspid valve is grossly normal. There is trace tricuspid valve regurgitation. The pulmonary artery systolic pressure is mildly elevated, 39 mmHg. Inferior Vena Cava Dilated inferior vena cava with < 50% collapse upon inspiration consistent with significantly elevated right atrial pressure, 15 mmHg. Pericardium/Pleural There is a small and circumferential pericardial effusion. Aorta The aortic root at the sinus of Valsalva is normal in size. The ascending aorta is normal in size. Measurements Left Ventricular Outflow Tract Name Value Normal LVOT 2D LVOT Diameter 2.0 cm LVOT Area 3.0 cm2 LVOT Doppler LVOT Peak Velocity 1.1 m/s LVOT Peak Gradient 5 mmHg LVOT Mean Velocity 77.61 cm/s LVOT Mean Gradient 3 mmHg LVOT VTI 23.7 cm LVOT VTI/AV VTI Ratio 0.8 LVOT Stroke Volume 71 ml LVOT Stroke Volume Index 39 ml/m2 35-58 LVOT CO 5.2 l/min LVOT CI 2.8 l/min/m2 Pulmonic Valve Name Value Normal RVOT Doppler RVOT Peak Velocity 0.6 m/s RVOT Peak Gradient 1 mmHg RVOT Mean Gradient 1 mmHg PV Doppler PV Peak Velocity 0.9 m/s PV Peak Gradient 3 mmHg PV Mean Gradient 2 mmHg Mitral Valve Name Value Normal MV Doppler MV Peak Gradient 4 mmHg MV Mean Gradient 2 mmHg MV DI (VTI) 1.10 MV PHT 65 ms MV Area (PHT) 3.37 cm2 4.00-5.00 MV Area (Cont Eq VTI) 2.73 cm2 MV Diastolic Function MV E Peak Velocity 0.9 m/sec MV A Peak Velocity 0.7 m/sec MV E/A 1.3 MV Decel Time (PW) 181 ms MV Annular TDI MV Septal e' Velocity 6 cm/s >=8 MV E/e' (Septal) 14 <=8 MV Lateral e' Velocity 9 cm/s >=10 MV E/e' (Lateral) 11 <=8 MV e' Average 7 cm/s MV E/e' (Average) 13 Tricuspid Valve Name Value Normal Estimated PAP/RSVP RA Pressure 15 mmHg <=5 PA Systolic Pressure 39 mmHg <35 TV Annular TDI TV Lateral Deanna s' Velocity 12 cm/s 10-19 Pulmonary Vessels Name Value Normal Pulmonary Veins Pulm Vein Peak Systolic Velocity 48.0 cm/s Pulm Vein Peak Diastolic Velocity 39.1 cm/s Pulm Vein S/D Velocity Ratio 1 Pulm Vein Ar Velocity 33.4 cm/s Aorta Name Value Normal Ascending Aorta Asc Ao Diameter 2.8 cm 1.9-3.5 Asc Ao Diameter Index 1.5 cm/m2 1.0-2.2 Venous Name Value Normal IVC/SVC IVC Diameter 2.1 cm <=2.1 Aortic Valve Name Value Normal AV Doppler AV Peak Velocity 1.52 m/s AV Peak Gradient 9 mmHg AV Mean Gradient 4 mmHg AV VTI 31 cm AV Area (Cont Eq VTI) 2.31 cm2 >=2.00 AV Area (Cont Eq Jordin) 2.28 cm2 AV DI (VTI) 0.77 AV DI (Jordin) 0.76 AV Regurgitation 2D LVOT Area 3.01 cm2 Ventricles Name Value Normal LV Dimensions 2D/MM IVS Diastolic Thickness (2D) 1.3 cm 0.6-0.9 LVID Diastole (2D) 4.6 cm 3.8-5.2 LVPW Diastolic Thickness (2D) 0.9 cm 0.6-0.9 IVS Systolic Thickness (2D) 1.6 cm LVID Systole (2D) 2.6 cm 2.2-3.5 LVPW Systolic Thickness (2D) 1.6 cm LV Mass (2D Cubed) 166 g 67-162 LV Mass Index (2D Cubed) 91 g/m2 43-95 Relative Wall Thickness (2D) 0.39 <=0.42 LV Fractional Shortening/Ejection Fraction 2D/MM LV Fractional Shortening (2D) 43 % 27-45 LV EF (2D Teicholz) 74 % 54-74 LV Diastolic Volume (4C MOD) 71 ml LV EF (4C MOD) 75 % LV Diastolic Volume (2C MOD) 84 ml LV EF (2C MOD) 73 % LV Diastolic Volume (BP MOD) 79 ml 46-106 LV Diastolic Volume Index (BP MOD) 43 ml/m2 29-61 LV Systolic Volume (BP MOD) 20 ml 14-42 LV Systolic Volume Index (BP MOD) 11 ml/m2 8-24 LV EF (BP MOD) 74 % 54-74 LV Diastolic Length (4C) 7.8 cm LV Systolic Length (4C) 5.5 cm LV Stroke Volume (4C MOD) 53 ml RV Dimensions 2D/MM RVID Diastole (2D) 2.6 cm 2.5-3.5 RVID Systole (2D) 2.0 cm RV Basal Diastolic Dimension 4.2 cm 2.5-4.1 RV Diastolic Length (4C) 7.4 cm 5.9-8.3 TAPSE 1.4 cm >=1.7 Atria Name Value Normal LA Dimensions LA Dimension (2D) 4.1 cm 2.7-3.8 LA Dimen Index (2D) 2.2 cm/m2 LA Volume (BP MOD) 32 ml LA Volume Index (BP MOD) 17 ml/m2 16-34 RA Dimensions RA Area (4C) 22 cm2 <=18 RA Area (4C) Index 12 cm2/m2 Report Signatures Finalized by Husam Vale on 05/18/2024 02:39 PM Procedure Note Husam Vale MD - 05/18/2024 Summary * The left ventricle is normal in size, with hyperdynamic systolicfunction and an estimated ejection fraction of 74 % by biplane method of disks.Left ventricular wall motion is normal. * Right ventricle is normal in size with mildly reduced systolicfunction. * No hemodynamically significant valve disease. * The pulmonary artery systolic pressure is mildly elevated, 39 mmHg. * Dilated inferior vena cava with < 50% collapse upon inspirationconsistent with significantly elevated right atrial pressure, 15 mmHg. * There is a small and circumferential pericardial effusion. Patient Info Name: Fouzia Lan Age: 58 years : 1965 Gender: Female Ht: 64 in Wt: 160 lb BSA: 1.83 m2 HR: 72 bpm BP: 141 / 81 mmHg Exam Date: 05/18/2024 10:35 AM Patient Status: OPO Study Site: [facility] Primary Location: [facility] EStudy Info Technical Quality: Adequate Exam Type: ECHO COMPLETE W CONTRAST Indications R06.09 - Dyspnea on exertion R06.02 - Shortness of breath Procedure(s) * A complete 2D, color Doppler, spectral Doppler, and M-Modetransthoracic echocardiogram was performed. * An Ultrasound Enhancing Agent (UEA) was utilized to enhanceendocardial definition, opacify the left ventricle and further assess leftventricular function and wall motion. Contrast/Agitated Saline Contrast / Saline: Definity Amount: 0.50 ml Administered By: Cesar Díaz Reaction to Contrast: no Staff Referring Physician: Michael Howard Ordering Provider: Michael Howard Attending Physician: Michael Howard Popcorn Candy Maker: Cesar Díaz Left Ventricle The left ventricle is normal in size. Left ventricular systolic functionis hyperdynamic with an estimated ejection fraction of 74 % by biplane methodof disks. The left ventricular mass is normal. Left ventricular segmentalwall motion is normal. The left ventricular diastolic function isindeterminate. Right Ventricle The right ventricle is normal in size. Right ventricular systolicfunction is mildly reduced. Left Atrium The left atrium is normal in size with a left atrial volume index of17 ml/m2 by BP MOD. Right Atrium The right atrium is mildly dilated. Atrial Septum Interatrial septum not well visualized by 2D and color Dopplerimaging. Aortic Valve The aortic valve is trileaflet. There is no aortic valve stenosis. Thereis no aortic valve regurgitation. Pulmonic Valve The pulmonic valve is grossly normal. There is no pulmonic valvestenosis. There is no significant pulmonic regurgitation. Mitral Valve The mitral valve is grossly normal. There is no mitral valve stenosis.There is trace mitral valve regurgitation. Tricuspid Valve The tricuspid valve is grossly normal. There is trace tricuspid valve regurgitation. The pulmonary artery systolic pressure is mildly elevated,39 mmHg. Inferior Vena Cava Dilated inferior vena cava with < 50% collapse upon inspirationconsistent with significantly elevated right atrial pressure, 15 mmHg. Pericardium/Pleural There is a small and circumferential pericardial effusion. Aorta The aortic root at the sinus of Valsalva is normal in size. Theascending aorta is normal in size. Measurements Left Ventricular Outflow Tract Name Value Normal LVOT 2D LVOT Diameter 2.0 cm LVOT Area 3.0 cm2 LVOT Doppler LVOT Peak Velocity 1.1 m/s LVOT Peak Gradient 5 mmHg LVOT Mean Velocity 77.61 cm/s LVOT Mean Gradient 3 mmHg LVOT VTI 23.7 cm LVOT VTI/AV VTI Ratio 0.8 LVOT Stroke Volume 71 ml LVOT Stroke Volume Index 39 ml/m2 35-58 LVOT CO 5.2 l/min LVOT CI 2.8 l/min/m2 Pulmonic Valve Name Value Normal RVOT Doppler RVOT Peak Velocity 0.6 m/s RVOT Peak Gradient 1 mmHg RVOT Mean Gradient 1 mmHg PV Doppler PV Peak Velocity 0.9 m/s PV Peak Gradient 3 mmHg PV Mean Gradient 2 mmHg Mitral Valve Name Value Normal MV Doppler MV Peak Gradient 4 mmHg MV Mean Gradient 2 mmHg MV DI (VTI) 1.10 MV PHT 65 ms MV Area (PHT) 3.37 cm2 4.00-5.00 MV Area (Cont Eq VTI) 2.73 cm2 MV Diastolic Function MV E Peak Velocity 0.9 m/sec MV A Peak Velocity 0.7 m/sec MV E/A 1.3 MV Decel Time (PW) 181 ms MV Annular TDI MV Septal e' Velocity 6 cm/s >=8 MV E/e' (Septal) 14 <=8 MV Lateral e' Velocity 9 cm/s >=10 MV E/e' (Lateral) 11 <=8 MV e' Average 7 cm/s MV E/e' (Average) 13 Tricuspid Valve Name Value Normal Estimated PAP/RSVP RA Pressure 15 mmHg <=5 PA Systolic Pressure 39 mmHg <35 TV Annular TDI TV Lateral Deanna s' Velocity 12 cm/s 10-19 Pulmonary Vessels Name Value Normal Pulmonary Veins Pulm Vein Peak Systolic Velocity 48.0 cm/s Pulm Vein Peak Diastolic Velocity 39.1 cm/s Pulm Vein S/D Velocity Ratio 1 Pulm Vein Ar Velocity 33.4 cm/s Aorta Name Value Normal Ascending Aorta Asc Ao Diameter 2.8 cm 1.9-3.5 Asc Ao Diameter Index 1.5 cm/m2 1.0-2.2 Venous Name Value Normal IVC/SVC IVC Diameter 2.1 cm <=2.1 Aortic Valve Name Value Normal AV Doppler AV Peak Velocity 1.52 m/s AV Peak Gradient 9 mmHg AV Mean Gradient 4 mmHg AV VTI 31 cm AV Area (Cont Eq VTI) 2.31 cm2 >=2.00 AV Area (Cont Eq Jordin) 2.28 cm2 AV DI (VTI) 0.77 AV DI (Jordin) 0.76 AV Regurgitation 2D LVOT Area 3.01 cm2 Ventricles Name Value Normal LV Dimensions 2D/MM IVS Diastolic Thickness (2D) 1.3 cm 0.6-0.9 LVID Diastole (2D) 4.6 cm 3.8-5.2 LVPW Diastolic Thickness (2D) 0.9 cm 0.6-0.9 IVS Systolic Thickness (2D) 1.6 cm LVID Systole (2D) 2.6 cm 2.2-3.5 LVPW Systolic Thickness (2D) 1.6 cm LV Mass (2D Cubed) 166 g 67-162 LV Mass Index (2D Cubed) 91 g/m2 43-95 Relative Wall Thickness (2D) 0.39 <=0.42 LV Fractional Shortening/Ejection Fraction 2D/MM LV Fractional Shortening (2D) 43 % 27-45 LV EF (2D Teicholz) 74 % 54-74 LV Diastolic Volume (4C MOD) 71 ml LV EF (4C MOD) 75 % LV Diastolic Volume (2C MOD) 84 ml LV EF (2C MOD) 73 % LV Diastolic Volume (BP MOD) 79 ml 46-106 LV Diastolic Volume Index (BP MOD) 43 ml/m2 29-61 LV Systolic Volume (BP MOD) 20 ml 14-42 LV Systolic Volume Index (BP MOD) 11 ml/m2 8-24 LV EF (BP MOD) 74 % 54-74 LV Diastolic Length (4C) 7.8 cm LV Systolic Length (4C) 5.5 cm LV Stroke Volume (4C MOD) 53 ml RV Dimensions 2D/MM RVID Diastole (2D) 2.6 cm 2.5-3.5 RVID Systole (2D) 2.0 cm RV Basal Diastolic Dimension 4.2 cm 2.5-4.1 RV Diastolic Length (4C) 7.4 cm 5.9-8.3 TAPSE 1.4 cm >=1.7 Atria Name Value Normal LA Dimensions LA Dimension (2D) 4.1 cm 2.7-3.8 LA Dimen Index (2D) 2.2 cm/m2 LA Volume (BP MOD) 32 ml LA Volume Index (BP MOD) 17 ml/m2 16-34 RA Dimensions RA Area (4C) 22 cm2 <=18 RA Area (4C) Index 12 cm2/m2 Report Signatures Finalized by Husam Vale on 05/18/2024 02:39 PM Michael MORALES * (ABNORMAL) COMPREHENSIVE METABOLIC PANEL (05/18/2024 12:34 AM [facility] [email or web address] Only the most recent of4 resultswithin the time period is included. BUN 19 7 - 26 mg/dL 05/18/2024 1:45 AM [facility] Creatinine 1.28(H) 0.56 - 0.96 mg/dL 05/18/2024 1:45 AM [facility] Sodium 139 136 - 145 mmol/L 05/18/2024 1:45 AM [facility] Potassium 4.5 3.5 - 4.5 mmol/L 05/18/2024 1:45 AM [facility] Chloride 111(H) 98 - 107 mmol/L 05/18/2024 1:45 AM [facility] CO2 20(L) 22 - 29 mmol/L 05/18/2024 1:45 AM [facility] Glucose 164(H) 70 - 99 mg/dL 05/18/2024 1:45 AM [facility] Calcium 8.9 8.4 - 10.2 mg/dL 05/18/2024 1:45 AM [facility] Protein Total 6.0 6.0 - 8.3 g/dL 05/18/2024 1:45 AM [facility] Albumin 3.3(L) 3.4 - 5.0 g/dL 05/18/2024 1:45 AM [facility] Bilirubin Total 0.5 0.2 - 1.2 mg/dL 05/18/2024 1:45 AM [facility] Alkaline Phosphatase 61 40 - 150 U/L 05/18/2024 1:45 AM [facility] ALT 82(H) 5 - 55 U/L 05/18/2024 1:45 AM [facility] AST 26 5 - 34 U/L 05/18/2024 1:45 AM [facility] Anion Gap 8 6 - 16 05/18/2024 1:45 AM [facility] BUN/Creatinine Ratio 15 7 - 23 05/18/2024 1:45 AM [employer] [facility] Osmolality Calculated 294 275 - 295 mOsm/kg 05/18/2024 1:45 AM [employer] [facility] Albumin/Globulin Ratio 1.2 1.1 - 2.3 05/18/2024 1:45 AM [employer] [facility] eGFR by CKD-EPI 48(L) >=90 mL/min/1.7 3 m2 05/18/2024 1:45 AM [employer] [facility] Blood BLOOD SPECIMEN / Unknown Lab Venipuncture / Unknown 05/18/2024 12:34 AM [employer] 05/18/2024 1:17 AM [employer] Michael Howard MD LAB - CHEMISTRY TEODORO PRINCE [facility] [address] [place] [address], [facility] [phone] * CT Chest Wo Contrast (05/17/2024 4:49 PM [employer]) Only the most recent of2 resultswithin the time period is included. Anatomical Region Laterality Modality Chest Computed Tomogra phy 05/17/2024 5:47 PM [employer] Impressions 05/17/2024 10:21 PM [employer] Impression 1. Small pericardial effusion measuring up to 12 mm. 2. Dilated and fluid-filled esophagus suggestive of passive esophageal reflux. Report dictated by Jonnie Guido MD(radiology orderly). I, Zachery Tello MD have personally reviewed and interpreted this examination/study. > Interpreting Provider: Zachery Tello MD on 05/17/2024 10:21 PM Narrative 05/17/2024 10:21 PM [employer] PROCEDURE: CT CHEST WO CONTRAST, DATE/TIME OF EXAM: 05/17/2024 4:50 PM, LOCATION [facility] INDICATION: R06.02: SOB (shortness of breath) ADDITIONAL CLINICAL INFORMATION: Ordering Provider Reason For Exam: eval for dyspnea on exertion COMPARISON: CT chest dated 09/03/2023. DATE: 05/17/2024 4:50 PM EXAMINATION: Computed tomography (CT) of the chest with contrast TECHNIQUE: CT of the chest was performed following the uneventful administration of 100 mL of Isovue 370 intravenous contrast according to standard protocol. Findings Lower neck/axilla: Normal. Lungs: No pulmonary parenchymal or airway process is present. No suspicious pulmonary nodules. No pleural effusion or pneumothorax. Subsegmental atelectasis noted at the lingula. Heart and Pericardium: The cardiac chambers are normal in size. Small pericardial effusion measuring up to 12 mm. Mediastinum and Sarah: No mediastinal mass is present. Reactive lymph nodes are present in the right paratracheal and prevascular regions. The esophagus is distended and fluid-filled. Thoracic Vessels: Atherosclerotic disease of the thoracic aorta. Bones and Chest Wall: Bone windows demonstrate no suspicious lytic or blastic lesions. The visible osseous structures are intact. Intervertebral disc protrusions at T2-3 and T7-8 levels. Upper Abdomen: Cortical scarring of the bilateral kidneys with lobular appearance. Bilateral renal cysts and focal atrophic changes. Stable 1.4 cm left adrenal nodule. Small hiatal hernia. Procedure Note Zachery Tello MD - 05/17/2024 PROCEDURE: CT CHEST WO CONTRAST, DATE/TIME OF EXAM: 05/17/2024 4:50PM, LOCATION [facility] INDICATION: R06.02: SOB (shortness of breath) ADDITIONAL CLINICAL INFORMATION: Ordering Provider Reason For Exam: eval for dyspnea on exertion COMPARISON: CT chest dated 09/03/2023. DATE: 05/17/2024 4:50 PM EXAMINATION: Computed tomography (CT) of the chest with contrast TECHNIQUE: CT of the chest was performed following the uneventful administration of 100 mL of Isovue 370 intravenous contrast according to standard protocol. Findings Lower neck/axilla: Normal. Lungs: No pulmonary parenchymal or airway process is present. No suspicious pulmonary nodules. No pleural effusion or pneumothorax. Subsegmental atelectasis noted at the lingula. Heart and Pericardium: The cardiac chambers are normal in size. Small pericardial effusion measuring up to 12 mm. Mediastinum and Sarah: No mediastinal mass is present. Reactive lymph nodes are present in the right paratracheal and prevascular regions. The esophagus is distendedand fluid-filled. Thoracic Vessels: Atherosclerotic disease of the thoracic aorta. Bones and Chest Wall: Bone windows demonstrate no suspicious lytic or blastic lesions. The visible osseous structures are intact. Intervertebral disc protrusionsat T2-3 and T7-8 levels. Upper Abdomen: Cortical scarring of the bilateral kidneys with lobular appearance. Bilateral renal cysts and focal atrophic changes. Stable 1.4 cm left adrenal nodule. Small hiatal hernia. Impression 1. Small pericardial effusion measuring up to 12 mm. 2. Dilated and fluid-filled esophagus suggestive of passive esophageal reflux. Report dictated by Jonnie Guido MD(radiology orderly). Zachery Benjamin MD have personally reviewed and interpreted this examination/study. > Interpreting Provider: Zachery Tello MD on 05/17/2024 10:21 PM Eder [address]ay MD CT ORDERABLES * XR Chest 1Vw Portable (05/17/2024 4:15 PM [employer]) Anatomical Region Laterality Modality Chest Digital Radiogra phy 05/17/2024 4:12 PM [employer] Narrative 05/18/2024 6:20 AM [employer] PROCEDURE: XR CHEST 1VW PORTABLE, DATE/TIME OF EXAM: 05/17/2024 2:15 PM, LOCATION [facility] INDICATION: R06.02: SOB (shortness of breath) ADDITIONAL CLINICAL INFORMATION: Ordering Provider Reason For Exam: r/o effusion COMPARISON: CT chest 09/03/2023 and x-ray chest 10/19/2021. TECHNIQUE: Frontal radiograph of the chest. FINDINGS/IMPRESSION: There is no focal consolidation, pleural effusion, or pneumothorax. The cardiac silhouette is mildly enlarged with a rounded configuration, which may suggest pericardial effusion. The mediastinal silhouette is normal. Report dictated by Radhames Apple MD, (Certified Welder). Sheridan Benjamin MD have personally reviewed and interpreted this examination/study. > Interpreting Provider: Sheridan Abbasi MD on 05/18/2024 6:20 AM Procedure Note Sheridan Abbasi MD - 05/18/2024 PROCEDURE: XR CHEST 1VW PORTABLE, DATE/TIME OF EXAM: 05/17/2024 2:15PM, LOCATION [facility] INDICATION: R06.02: SOB (shortness of breath) ADDITIONAL CLINICAL INFORMATION: Ordering Provider Reason For Exam: r/o effusion COMPARISON: CT chest 09/03/2023 and x-ray chest 10/19/2021. TECHNIQUE: Frontal radiograph of the chest. FINDINGS/IMPRESSION: There is no focal consolidation, pleural effusion, or pneumothorax. The cardiac silhouette is mildly enlarged with a rounded configuration,which may suggest pericardial effusion. The mediastinal silhouette is normal. Report dictated by Radhames Apple MD, (Certified Welder). I, Sheridan Abbasi MD have personally reviewed and interpreted this examination/study. > Interpreting Provider: Sheridan Abbasi MD on 05/18/2024 6:20 AM Kristi Xie PA-C DIAGNOSTIC IM AGING ORDERABLES * TROPONIN-I HIGH SENSITIVE REFLEX 1HOUR (05/17/2024 2:57 PM [employer]) [facility] Troponin I High Sensitive 7 <=14 ng/L 05/17/2024 3:59 PM TRA[employer]EN[employer]ENT [facility] Delta Troponin I HS 05/17/2024 3:59 PM TRA[employer]ASSEN[employer]ENT [facility] Comment:Delta value intentio nazario not calculated. Baseline to 1 hour specimen collection interval exceeded. Blood BLOOD SPECIMEN / Unknown Venipuncture / Unknown 05/17/2024 2:57 PM [employer] 05/17/2024 3:25 PM [employer] Kristi Xie PA-C LAB - PLANING MACHINE OPERATOR RY ORDERABLES Performing Organization Address [facility]/State/ZIP Co de Phone Number [facility] [address] [place] [address], [facility] [phone] * EKG 12-LEAD (05/17/2024 1:41 PM TRA[employer]) Pathologist [facility] Ventricular Rate 67 BPM [facility]USE Atrial Rate [address] [facility] MUSE P-R Interval 158 ms [facility] QRS Duration ms 68 ms [facility] Q-T Interval ms 438 ms [facility] QTC Calculation (Bezet) 462 ms [facility]USE Calculated P [place] 51 degrees [facility] MUSE Calculated R [place] 102 degrees [facility] MUSE Calculated T [place] 56 degrees [facility] MUSE Interpretation EKG NORMAL SINUS RHYTHM RIGHTWARD AXIS T WAVE ABNORMALITY, CONSIDER ANTERIOR ISCHEMIA PROLONGED QT ABNORMAL ECG NO PREVIOUS ECGS AVAILABLE Confirmed by IVY PETERSON MD ([id number]) on 05/18/2024 10:49:[address] [facility] MUSE 05/17/2024 1:41 PM [employer] 05/18/2024 10:49 PM [employer] Kristi Xie PA-C ECG ORDERABLE S [facility] MUSE * TROPONIN-I HIGH SENSITIVE BASELINE + 1HR (05/17/2024 1:25 PM TRA[employer]ASSENGER AGENT) [facility] Troponin I High Sensitive 7 <=14 ng/L 05/17/2024 2:04 PM [employer]ENT [facility] Blood BLOOD SPECIMEN / Unknown Venipuncture / Unknown 05/17/2024 1:25 PM [employer] 05/17/2024 1:30 PM [employer] Kristi Xie PA-C LAB - PLANING MACHINE OPERATOR RY ORDERABLES [facility] [address] [place] [address], [facility] [phone] * (ABNORMAL) CBC W AUTO DIFFERENTIAL (05/17/2024 1:25 PM [employer]ENT) Only the most recent of3 resultswithin the time period is included. [facility] WBC 7.0 4.0 - 10.7 x10E9/L 05/17/2024 1:36 PM [facility] RBC Count 5.06 3.90 - 5.20 x10E12/L 05/17/2024 1:36 PM [facility] Hemoglobin 14.3 11.9 - 15.8 g/dL 05/17/2024 1:36 PM [facility] Hematocrit 43.8 34.8 - 46.1 % 05/17/2024 1:36 PM [facility] MCV 86.6 80.0 - 98.0 fL 05/17/2024 1:36 PM [facility] MCH 28.3 26.7 - 33.6 pg 05/17/2024 1:36 PM [facility] MCHC 32.6 31.7 - 36.3 g/dL 05/17/2024 1:36 PM [facility] RDW-CV 14.2 11.3 - 14.8 % 05/17/2024 1:36 PM [facility] Platelet Count 174 150 - 420 x10E9/L 05/17/2024 1:36 PM [facility] MPV 11.7(H) 7.8 - 11.4 fL 05/17/2024 1:36 PM [facility] Neutrophil % 65.4 41.0 - 74.0 % 05/17/2024 1:36 PM [facility] Lymphocyte % 21.6 17.0 - 47.0 % 05/17/2024 1:36 PM [facility] Monocyte % 10.2 3.0 - 11.0 % 05/17/2024 1:36 PM [facility] Eosinophil % 1.8 0.0 - 7.0 % 05/17/2024 1:36 PM [facility] Basophil % 0.7 0.0 - 1.6 % 05/17/2024 1:36 PM [facility] Immature Granulocytes % 0.3 0.0 - 1.0 % 05/17/2024 1:36 PM [facility] Neutrophil Absolute 4.60 1.60 - 7.50 x10E9/L 05/17/2024 1:36 PM [facility] Lymphocyte Absolute 1.52 1.00 - 4.40 x10E9/L 05/17/2024 1:36 PM [facility] Monocyte Absolute 0.72 0.15 - 1.00 x10E9/L 05/17/2024 1:36 PM [facility] Eosinophil Absolute 0.13 0.00 - 0.60 x10E9/L 05/17/2024 1:36 PM [facility] Basophil Absolute 0.05 0.00 - 0.13 x10E9/L 05/17/2024 1:36 PM [facility] Blood BLOOD SPECIMEN / Unknown Venipuncture / Unknown 05/17/2024 1:25 PM TRA[employer] AGENT 05/17/2024 1:30 PM [facility] [[email or web address]] Kristi Xie PA-C LAB - HEMATOL OGY ORDERABLES Performing Organization Address [facility]/ZIP Co de Phone Number [facility] [address] [place] [address], [facility] [phone] * (ABNORMAL) B-TYPE NATRIURETIC PEPTIDE (05/17/2024 1:25 PM TRA[employer] PASSENGER AGENT) BNP 326(H) <100 pg/mL 05/17/2024 5:22 PM [employer]ENT [facility] Comment: A decision threshold of 100 pg/mL has been demonstrated to provide the maximal combination of sensitivity, specificity and predictive value for the diagnosis of congestive heart failure (CHF). Virtually all patients with no evidence of CHF have BNP values less than 100 pg/mL. A BNP value greater than 100 pg/mL is consistent with the diagnosis of CHF in the appropriate clinical setting. In a study of 693 patients (male and female) with diagnosed CHF, the following values were determined based on the NYHA functional classification system: NYHA Functional Class Mean Valule (pg/mL) % >100 pg/mL I 320 58.1 II 432 73.0 III 656 79.0 IV 1635 98.3 Blood BLOOD SPECIMEN / Unknown Venipuncture / Unknown 05/17/2024 1:25 PM [employer]GER AGENT 05/17/2024 4:35 PM [employer]EN[employer] AGENT Eder Ramsay MD LAB - CHEMISTRY TEODORO PRINCE Performing Organization Address [facility]/ZIP Co de Phone Number [facility] [address] [place] [address], [facility] [phone] * PFT Oxygen Desaturation Study [facility] PFT Lab (09/19/2023 12:13 PM CDT) Impressions [facility] - 09/19/2023 12:13 PM CDT [facility] DEPARTMENT OF PULMONARY, CRITICAL CARE, AND SLEEP MEDICINE OXYGEN TITRATION STUDY Fouzia Castro Riky 09/19/2023 INTERPRETATION The test was performed walking on room air. The patient was able to complete 8 minutes with lowest SpO2 of 97%. The oxygen saturation remained above 97 throughout the test. IMPRESSION 1. At the above level of activity the patient's oxygen saturation remained 97 % and above on room air. Lizandro Huang MD Pulmonary Diseases & Critical Care Fellow Division of Pulmonary, Critical Care and Sleep Medicine [facility] [employer] [facility] I have personally reviewed pulmonary function test data and finding. I concur with fellow's note. Bethanie José MD Narrative [facility] - 09/19/2023 12:13 PM CDT Lizandro Bone MD 09/19/2023 12:52 PM Bethanie José MD PFT ORDERABLES Performing Organization Address City/State/[facility] Co de Phone Number [facility] [address] [place] [address], [facility] * Complete PFT w/wo Bronchodilator [facility] PFT Lab (09/03/2023 9:45 AM CDT) Impressions González Crooks MD - 09/03/2023 9:45 AM CDT [facility] DEPARTMENT OF PULMONARY, CRITICAL CARE, AND SLEEP MEDICINE PULMONARY FUNCTION TEST Please see technologist's comments mentioned in the report. INTERPRETATION: SPIROMETRY: FVC: normal FEV1: normal FEV1/FVC ratio is normal. BRONCHODILATOR RESPONSE: There is no significant response to bronchodilator administration however does not preclude from bronchodilator therapy if clinically indicated otherwise FLOW-VOLUME LOOPS: Normal flow-volume loops LUNG VOLUMES: Lung volumes by body plethysmography show normal total lung volume and normal residual volume DLCO: Unadjusted for Hb and COHb is moderately decreased(z-score -2.5 to -4.0). DLCO: Adjusted for Hb and COHb is: not performed AIRWAY RESISTANCE: The airway resistance is normal and the specific conductance is normal ARTERIAL BLOOD GAS ANALYSIS: not performed IMPRESSION: 1. Normal spirometry and lung volumes 2. Moderately decreased unadjusted DLCO 3. No significant bronchodilator response, however this does not preclude the use of bronchodilators therapy if clinically indicated 4. When compared to the previous study on 08/02/2022, there is no significant change. Stacie England DO Pulmonary & Critical Care Fellow Division of Pulmonary, Critical Care and Sleep Medicine [facility] I have personally reviewed and agree with the fellow's interpretation. González Crooks MD Narrative González Crooks MD - 09/03/2023 9:45 AM CDT Stacie England DO 4/2/2024 10:37 AM Wil Moore MD RESPIRATORY THE RAPY ORDERABLES * ECHO STRESS W BICYCLE (08/08/2022 12:13 PM TRAVEL FREIGHT AND PASSENGER AGENT) Anatomical Region Laterality Modality Chest Echo 08/08/2022 10:4 2 AM TRAVEL FREIGHT AND PASSENGER AGENT Narrative Procedure Note Brad Valencia MD - 09/20/2022 Brda Valencia MD ECHOCARDIOGRAPHY RAD IANT * PFT Oxygen Desaturation Study [facility] PFT Lab (08/02/2022 1:55 PM TRAVEL FREIGHT AND PASSENGER AGENT) Impressions Prakash Londono MD - 08/02/2022 1:55 PM TRAVEL FREIGHT AND PASSENGER AGENT [facility] DEPARTMENT OF PULMONARY, CRITICAL CARE, AND SLEEP MEDICINE OXYGEN TITRATION STUDY Sunni Zayas INTERPRETATION The test was performed on the treadmill at a speed of 1 mph at room air. The patient was able to complete 4 minutes with lowest SpO2 of 97%. Then the treadmill speed was increased to 2 mph, the patient's SpO2 dropped to 96% at minute 4 and oxygen saturation remained above throughout the test. IMPRESSION The patient did not have a significant oxygen desaturation while walking at 2 mph for a total of 8 minutes. Becky Baldwin MD Division of Pulmonary, Critical Care, & Sleep Medicine [facility] [employer] I have reviewed the above study and agree with the interpretation as listed above. Prakash Londono MD Automatic Shirring Machine Operator of Pulmonary & Critical Care Medicine [facility] Pager [phone] Narrative Prakash Londono MD - 08/02/2022 1:55 PM TRAVEL FREIGHT AND PASSENGER AGENT Becky Baldwin MD 08/02/2022 3:01 PM Abrahan Reynaga MD PFT ORDERABLES * Six Minute Walk Test [facility] PFT Lab (08/02/2022 1:54 PM TRAVEL FREIGHT AND PASSENGER AGENT) Impressions Prakash Londono MD - 08/02/2022 1:54 PM TRAVEL FREIGHT AND PASSENGER AGENT [facility] DEPARTMENT OF PULMONARY, CRITICAL CARE, AND SLEEP MEDICINE SIX MINUTE WALK TEST Fouzia Lan 08/02/2022 Interpretation: The patient walked for 6 minutes on room air and covered total distance of 451 meters. On the Lydia scale at baseline, reported dyspnea was 0 and fatigue was 0. At the end of the study, the Lydia reported dyspnea was 3 and fatigue was 0. There were no additional symptoms reported and oxygen saturation remained above 98% throughout the test. IMPRESSION: 1. Total 6 minute walk distance is 451 meters, which is above the lower limit of normal of 363 meters for this patient. 2. There is no available study for comparison. Becky Baldwin MD Pulmonary & Critical Care Fellow Division of Pulmonary, Critical Care and Sleep Medicine [facility] Pager: [phone] I have reviewed the above study and agree with the interpretation as listed above. Prakash Londono MD Automatic Shirring Machine Operator of Pulmonary & Critical Care Medicine [facility] Pager [phone] Narrative Prakash Londono MD - 08/02/2022 1:54 PM TRAVEL FREIGHT AND PASSENGER AGENT Becky Baldwin MD 08/02/2022 3:01 PM f Abrahan Reynaga MD RESPIRATORY THERAPY ORDERABLES * COMPLETE PFT (08/02/2022 1:53 PM TRAVEL FREIGHT AND PASSENGER AGENT) Impressions Prakash Londono MD - 08/02/2022 1:53 PM TRAVEL FREIGHT AND PASSENGER AGENT [facility] DEPARTMENT OF PULMONARY, CRITICAL CARE, AND SLEEP MEDICINE PULMONARY FUNCTION TEST Please see technologist's comments mentioned in the report. INTERPRETATION: SPIROMETRY: FVC: normal FEV1: decreased FEV1/FVC ratio is normal. BRONCHODILATOR RESPONSE: There is no response to bronchodilator therapy however does not mean the patient wont benefit from bronchodilator therapy FLOW-VOLUME LOOPS: Normal flow-volume loops LUNG VOLUMES: Lung volumes by body plethysmography showed air trapping. DLCO: Unadjusted for Hb and COHb is decreased IMPRESSION: 1. Mild non-specific ventilatory limitation 2. Mild air trapping 3. Moderate decrease in unadjusted DLCO 4. No positive bronchodilator response, however this does not preclude the use of bronchodilators 5. There is no previous study available for comparison Becky Baldwin MD Pulmonary & Critical Care Fellow Division of Pulmonary, Critical Care and Sleep Medicine [facility] Pager: [phone] I have reviewed the above study and agree with the interpretation as listed above. Prakash Londono MD Automatic Shirring Machine Operator of Pulmonary & Critical Care Medicine [facility] Pager [phone] Narrative Prakash Londono MD - 08/02/2022 1:53 PM TRAVEL FREIGHT AND PASSENGER AGENT Becky Baldwin MD 08/02/2022 3:01 PM Jenny Mckenzie MD [facility] ERA ORDERABLES * CT CHEST WO CONT AND HIRES (08/02/2022 11:30 AM TRAVEL FREIGHT AND PASSENGER AGENT) Anatomical Region Laterality Modality Chest Computed Tomogra phy 08/02/2022 1:59 PM TRAVEL FREIGHT AND PASSENGER AGENT Impressions 08/02/2022 2:16 PM TRAVEL FREIGHT AND PASSENGER AGENT Impression: 1.No CT evidence of interstitial lung disease. 2.Small areas of air trapping in both lower lobe. 3.Small pericardial effusion. 4.Mildly dilated and fluid-filled esophagus may be a sequela of known scleroderma. 5.Left adrenal gland nodularity likely benign. > Dictated by Angel Ramirez DO, MD (radiology orderly). I, Gab Gottlieb MD have personally reviewed and interpreted this examination/study. > Interpreting Provider: Gab Gottlieb MD on 08/02/2022 2:16 PM Narrative 08/02/2022 2:16 PM TRAVEL FREIGHT AND PASSENGER AGENT PROCEDURE: CT CHEST WO CONT AND HIRES, DATE/TIME OF EXAM: 08/02/2022 11:31 AM, LOCATION [facility] INDICATION: M34.9: Scleroderma (CMS/HCC) COMPARISON: None. TECHNIQUE: CT of the chest was performed without contrast according to standard protocol. Then, utilizing a high-resolution algorithm, 1 mm noncontiguous axial images of the chest were obtained in inspiration and expiration. Findings: Evaluation of visceral and vascular structures is degraded due to lack of intravenous contrast administration. Lower Neck and Axillae: Normal. Lungs: No bronchial wall thickening or bronchiectasis is seen. There is no evidence of reticulation or groundglass opacities. No architectural distortion or honeycombing is visible. Small areas of air trapping in the inferomedial portions of both lower lobes (series 9, image [id number]). No pleural fluid or pneumothorax is present. Heart and Pericardium: The cardiac chambers are normal in size. Calcification of the left anterior descending artery. Small pericardial effusion. Mediastinum and Sarah: No enlarged lymph nodes are present. Mildly dilated and fluid-filled esophagus. Thoracic Vasculature: No vascular abnormality is present. Bones and Chest Wall: Bone windows demonstrate no suspicious lytic or blastic lesions. The visible osseous structures are intact. Upper Abdomen: The visualized liver, gallbladder, spleen and pancreas are normal. There is nodularity of the left adrenal gland. Partially visualized atrophy of both kidneys with a right simple cyst.. visible portions of the upper abdominal organs are normal. Procedure Note Gab Gottlieb MD - 08/02/2022 PROCEDURE: CT CHEST TERRENCE GARCIA SHEN, DATE/TIME OF EXAM: :31 AM, LOCATION [facility] INDICATION: M34.9: Scleroderma (CMS/HCC) COMPARISON: None. TECHNIQUE: CT of the chest was performed without contrast according to standard protocol. Then, utilizing a high-resolution algorithm, 1 mm noncontiguous axial images of the chest were obtained in inspiration and expiration. Findings: Evaluation of visceral and vascular structures is degraded due to lackof intravenous contrast administration. Lower Neck and Axillae: Normal. Lungs: No bronchial wall thickening or bronchiectasis is seen. There is no evidence of reticulation or groundglass opacities. No architectural distortion or honeycombing is visible. Small areas of air trapping inthe inferomedial portions of both lower lobes (series 9, image [id number]). No pleural fluid or pneumothorax is present. Heart and Pericardium: The cardiac chambers are normal in size. Calcification of the leftanterior descending artery. Small pericardial effusion. Mediastinum and Sarah: No enlarged lymph nodes are present. Mildly dilated and fluid-filled esophagus. Thoracic Vasculature: No vascular abnormality is present. Bones and Chest Wall: Bone windows demonstrate no suspicious lytic or blastic lesions. The visible osseous structures are intact. Upper Abdomen: The visualized liver, gallbladder, spleen and pancreas are normal. Thereis nodularity of the left adrenal gland. Partially visualized atrophy ofboth kidneys with a right simple cyst.. visible portions of the upperabdominal organs are normal. Impression: 1.No CT evidence of interstitial lung disease. 2.Small areas of air trapping in both lower lobe. 3.Small pericardial effusion. 4.Mildly dilated and fluid-filled esophagus may be a sequela of known scleroderma. 5.Left adrenal gland nodularity likely benign. > Dictated by Angel Ramirez DO, MD (radiology orderly). I, Gab Gottlieb MD have personally reviewed and interpreted this examination/study. > Interpreting Provider: Gab Gottlieb MD on 08/02/2022 2:[address]aga MD [address] ORDERABLES * PROC EKG IN CLINIC (06/08/2022 3:45 PM TRAVEL FREIGHT AND PASSENGER AGENT) Narrative Brad Valencia MD - 06/08/2022 3:45 PM TRAVEL FREIGHT AND PASSENGER AGENT Brad Valencia MD 06/08/2022 3:45 PM Brad Valencia MD ECG ORDERABLES * PFT (12/11/2021) 12/11/2021 Narrative 12/11/2021 Ordered by an unspecified provider. Scanned Document SCANNING ONLY * CARDIAC ECHOCARDIOGRAM COMPLETE ORDER (12/08/2021) 12/08/2021 Narrative 12/08/2021 Ordered by an unspecified provider. Scanned Document ECHO ORDERABLES * (ABNORMAL) URINALYSIS W/MICROSCOPIC NO CULTURE (10/19/2021 12:54 PM CDT) Color UA Yellow Straw, Yellow 10/19/2021 1:[address] [facility] Clarity UA Clear Clear 10/19/2021 1:[address] [facility] Specific [place] UA 1.010 1.005 - 1.030 10/19/2021 1:36 PM CDT [facility] pH UA 5.5 5.0 - 8.0 pH 10/19/2021 1:[address] [facility] Protein UA 2+(A) Negative 10/19/2021 1:36 PM CDT [facility] Glucose UA Negative Negative 10/19/2021 1:[address] [facility] Ketone UA Negative Negative 10/19/2021 1:36 PM CDT [facility] Bilirubin UA Negative Negative 10/19/2021 1:36 PM CDT [facility] Blood UA Negative Negative 10/19/2021 1:36 PM CDT [facility] Nitrite UA Negative Negative 10/19/2021 1:36 PM CDT [facility] Leukocyte Esterase Negative Negative 10/19/2021 1:36 PM CDT [facility] Urobilinogen UA Negative Negative mg/dL 10/19/2021 1:36 PM CDT [facility] RBC UA 3-5 None Seen, 0-2, 3-5 /HPF 10/19/2021 1:36 PM CDT [facility] WBC UA 0-5 None Seen, 0-5 /HPF 10/19/2021 1:36 PM CDT [facility] Bacteria UA Trace(A) None /HPF 10/19/2021 1:36 PM CDT [facility] Squamous Epithelial Cells UA 0-2 None Seen, 0-2, 3-5 /HPF 10/19/2021 1:36 PM CDT [facility] Mucus UA 1+ /LPF 10/19/2021 1:36 PM CDT [facility] Urine URINE SPECIMEN OBTAINED BY CLEAN CATCH PROCEDURE / Unknown Collection / Unknown 10/19/2021 12:54 PM CDT 10/19/2021 1:14 PM CDT Narrative [facility] - 10/19/2021 1:36 PM CDT Abrahan Reynaga MD LAB - URINALYSIS ORD ERABLES Performing Organization Address [facility]/State/[facility] Co de Phone Number [facility] [address] [place] [id number], [facility] [phone] * (ABNORMAL) ROMEO BLOOD SINGLE PATTERN (10/19/2021 12:26 PM CDT) ROMEO Pattern Centromer e(A) 10/23/2021 2:24 PM CDT [facility] ([facility]) ROMEO Titer >1:2560(H ) 10/23/2021 2:24 PM CDT [employer] ([facility]) Comment: Performed By: [facility] [address] [place] [id number] Warehouse Checker: Dolores Morataya MD Blood BLOOD SPECIMEN / Unknown Lab Venipuncture / Unknown 10/19/2021 12:26 PM CDT 10/19/2021 1:15 PM CDT Abrahan Reynaga MD LAB - CHEMISTRY TEODORO PRINCE [facility] [employer] ([facility]) [address] [place] [address], [facility] * (ABNORMAL) SCLERODERMA COMPREHENSIVE AB PANEL (10/19/2021 12:26 PM CDT) ROMEO HEp-2 IgG Detected(H ) <1:80 10/23/2021 2:23 PM CDT [facility] ([facility]) ROMEO Interpretive Comment See Note 10/23/2021 2:23 PM CDT [facility] [employer] ([facility]) Comment: Centromere Pattern Clinical associations: SSc, PBC Main autoantibodies: Anti-centromere A/B(c) List of Abbreviations Antisynthetase syndrome (ARS), chronic active hepatitis (CAH), inflammatory myopathies (IM) [dermatomyositis (DM), polymyositis (PM), necrotizing autoimmune myopathy (NAM)], interstitial lung disease (ILD), juvenile idiopathic arthritis (ARTHUR), mixed connective tissue disease (MCTD), primary biliary cholangitis (PBC), rheumatoid arthritis (RA), systemic autoimmune rheumatic diseases (SARD), Sjogren syndrome (SjS), systemic lupus erythematosus (SLE), systemic sclerosis (SSc), undifferentiated connective tissue disease (UCTD). INTERPRETIVE INFORMATION: ROMEO Interpretive Comment Presence of antinuclear antibodies (ROMEO) is a hallmark feature of systemic autoimmune rheumatic diseases (SARD). However, ROMEO lacks diagnostic specificity and is associated with a variety of diseases (cancers, autoimmune, infectious, and inflammatory conditions) and may also occur in healthy individuals in varying prevalence. The lack of diagnostic specificity requires confirmation of positive ROMEO by more specific serologic tests. ROMEO (nuclear reactivity) positive patterns reported include centromere, homogeneous, nuclear dots, nucleolar, or speckled. ROMEO (cytoplasmic reactivity) positive patterns reported include reticular/AMA, discrete/GW body-like, polar/golgi-like, cytoplasmic speckled or rods and rings. All positive patterns are reported to endpoint titers (1:2560). Reported patterns may help guide differential diagnosis, although they may not be specific for individual antibodies or diseases. Mitotic staining patterns not reported. Negative results do not necessarily rule out SARD. SCL-70 Antibody 1 0 - 40 AU/mL 10/23/2021 2:23 PM [facility] ([facility]) Comment: INTERPRETIVE INFORMATION: Scleroderma (Scl-70) (FERMIN) Ab, IgG 29 AU/mL or Less ............. Negative 30 - 40 AU/mL ................ Equivocal 41 AU/mL or Greater .......... Positive The presence of Scl-70 antibodies (also referred to as topoisomerase I, herbert-I or ALTHEA) is considered diagnostic for systemic sclerosis (SSc). Scl-70 antibodies alone are detected in about 20 percent of SSc patients and are associated with the diffuse form of the disease, which may include specific organ involvement and poor prognosis. Scl-70 antibodies have also been reported in a varying percentage of patients with systemic lupus erythematosus (SLE). Scl-70 (herbert-1) is a DNA binding protein and anti-DNA/DNA complexes in the sera of SLE patients may bind to herbert-I, leading to a false-positive result. The presence of Scl-70 antibody in sera may also be due to contamination of recombinant Scl-70 with DNA derived from cellular material used in immunoassays. Strong clinical correlation is recommended if both Scl-70 and dsDNA antibodies are detected. Negative results do not necessarily rule out the presence of SSc. If clinical suspicion remains, consider further testing for centromere, RNA polymerase III and U3-[employer]QUIP[employer] REPAIR[employer], PM/Scl, or Th/To antibodies. RNA Polymerase 3 Antibody IgG 5 0 - 19 Units 10/23/2021 2:23 PM [facility] ([facility]) Comment: INTERPRETIVE INFORMATION: RNA Polymerase III Antibody, IgG 19 Units or less ......Negative 20 - 39 Units .........Weak Positive 40 - 80 Units .........Moderate Positive 81 Units or greater ...Strong Positive The presence of RNA polymerase III IgG antibody, when considered in conjunction with other laboratory and clinical findings, is an aid in the diagnosis of systemic sclerosis (SSc) with increased incidence of skin involvement and renal crisis with the diffuse cutaneous form of SSc. RNA polymerase III IgG antibody occur in about 11-23 percent of SSc patients, and typically in the absence of anti-centromere and anti-Scl-70 antibodies. A negative result indicates no detectable IgG antibodies to the dominant antigen of RNA polymerase III and does not rule out the possibility of SSc. False-positive results may also occur due to non-specific binding of immune complexes. Strong clinical correlation is recommended. If clinical suspicion remains, consider additional testing for other antibodies associated with SSc, including centromere, Scl-70, U3-[employer] REPAIR[employer], PM/Scl, or Th/To. Guillen/ELECTRONIC EQUIPMENT REPAIRMEN (FERMIN) Antibody IgG 8 0 - 19 Units 10/23/2021 2:23 PM CDT [facility] ([facility]) Comment: INTERPRETIVE INFORMATION: Guillen/ELECTRONIC EQUIPMENT REPAIRMEN (FERMIN) Antibody, IgG 19 Units or Less ............. Negative 20 to 39 Units ............... Weak Positive 40 to 80 Units ............... Moderate Positive 81 Units or greater .......... Strong Positive Guillen/ELECTRONIC EQUIPMENT REPAIRMEN antibodies are frequently seen in patients with mixed connective tissue disease (MCTD) and are also associated with other systemic autoimmune rheumatic diseases (SARDs) such as systemic lupus erythematosus (SLE), systemic sclerosis, and myositis. Antibodies targeting the Guillen/ELECTRONIC EQUIPMENT REPAIRMEN antigenic complex also recognize Guillen antigens, therefore, the Guillen antibody response must be considered when interpreting these results. PM/Scl 100 Antibody IgG Negative Negative 10/23/2021 2:23 PM CDT [facility] ([facility]) Comment: INTERPRETIVE INFORMATION: PM/Scl-100 Antibody, IgG by Immunoblot The presence of PM/Scl-100 IgG antibody along with a positive ROMEO IFA nucleolar pattern is associated with connective tissue diseases such as polymyositis (PM), dermatomyositis (DM), systemic sclerosis (SSc), and polymyositis/systemic sclerosis overlap syndrome. The clinical relevance of PM/Scl-100 IgG antibody with a negative ROMEO IFA nucleolar pattern is unknown. PM/Scl-100 is the main target epitope of the PM/Scl complex, although antibodies to other targets not detected by this assay may occur. This test was developed and its performance characteristics determined by [facility]. It has not been cleared or approved by the [place] Food and Drug Administration. This test was performed in a CLIA certified laboratory and is intended for clinical purposes. Fibrillarin (U3 [employer]) Antibody IgG Negative Negative 10/23/2021 2:23 PM CDT [facility] ([facility]) Comment: Interpretive Information: Fibrillarin (U3 [employer]) Antibody, IgG The presence of fibrillarin (U3-[employer] REPAIR[employer]) IgG antibodies in association with an ROMEO IFA nucleolar pattern is suggestive of systemic sclerosis (SSc). In SSc, these antibodies are associated with distinct clinical features, such as younger age at disease onset, frequent internal organ involvement (pulmonary hypertension, myositis and renal disease). Fibrillarin antibodies are detected more frequently in patients with SSc compared to other ethnic groups. Strong correlation with ROMEO IFA results is recommended. In a multi-ethnic cohort of SSc patients (n=98), U3-[employer] RE[employer]IR[employer] antibodies detected by immunoblot had an agreement of 98.9 percent with the gold standard immunoprecipitation (IP) assay. Approximately 71 percent (5/7) of the borderline U3-[employer] RE[employer]IR[employer] results with ROMEO nucleolar pattern in this cohort were IP negative. This test was developed and its performance characteristics determined by [facility]. It has not been cleared or approved by the [place] Food and Drug Administration. This test was performed in a CLIA certified laboratory and is intended for clinical purposes. Performed By: [facility] [address] [place] [address] Warehouse Checker: Dolores Morataya MD Blood BLOOD SPECIMEN / Unknown Lab Venipuncture / Unknown 10/19/2021 12:26 PM CDT 10/19/2021 1:15 PM CDT Abrahan Reynaga MD LAB - SEROLOGY ORDER [facility]) [address] [place] [address], [facility] * SS-A (SJOGREN'S) 52+60 ANTIBODIES (10/19/2021 12:26 PM CDT) SS-A 52 Antibody 2 0 - 40 AU/mL 10/21/2021 4:57 AM CDT [facility] ([facility]) Comment: INTERPRETIVE INFORMATION: SSA-52 (Ro52) (FERMIN) Antibody, IgG 29 AU/mL or Less ............. Negative 30 - 40 AU/mL ................ Equivocal 41 AU/mL or Greater .......... Positive SSA-52 (Ro52) and/or SSA-60 (Ro60) antibodies are associated with a diagnosis of Sjogren syndrome, systemic lupus erythematosus (SLE), and systemic sclerosis. SSA-52 antibody overlaps significantly with the major SSc-related antibodies. SSA-52 (Ro52) antibody occurs frequently in patients with inflammatory myopathies, often in the presence of interstitial lung disease. SS-A 60 Antibody 0 0 - 40 AU/mL 10/21/2021 4:57 AM CDT [employer] ([facility]) Comment: REFERENCE INTERVAL: SSA-60 (Ro60) (FERMIN) Antibody, IgG 29 AU/mL or Less ............. Negative 30 - 40 AU/mL ................ Equivocal 41 AU/mL or Greater .......... Positive Performed By: [facility] [address] [place] [address] Warehouse Checker: Dolores Morataya MD Blood BLOOD SPECIMEN / Unknown Lab Venipuncture / Unknown 10/19/2021 12:26 PM CDT 10/19/2021 1:14 PM CDT Abrahan Reynaga MD LAB - CHEMISTRY TEODORO PRINCE [facility] Organization Address City/State/ZIP Co de Phone Number [facility]) [address] * GUILLEN/ELECTRONIC EQUIPMENT REPAIRMEN (FERMIN) ANTIBODY IGG (10/19/2021 12:26 PM CDT) Guillen/ELECTRONIC EQUIPMENT REPAIRMEN (FERMIN) Antibody IgG 8 0 - 19 Units 10/21/2021 4:49 AM CDT [employer] ([facility]) Comment: INTERPRETIVE INFORMATION: Guillen/ELECTRONIC EQUIPMENT REPAIRMEN (FERMIN) Antibody, IgG 19 Units or Less ............. Negative 20 to 39 Units ............... Weak Positive 40 to 80 Units ............... Moderate Positive 81 Units or greater .......... Strong Positive Guillen/ELECTRONIC EQUIPMENT REPAIRMEN antibodies are frequently seen in patients with mixed connective tissue disease (MCTD) and are also associated with other systemic autoimmune rheumatic diseases (SARDs) such as systemic lupus erythematosus (SLE), systemic sclerosis, and myositis. Antibodies targeting the Guillen/[employer] antigenic complex also recognize Guillen antigens, therefore, the Guillen antibody response must be considered when interpreting these results. Performed By: [facility] [address] [place] [address] Warehouse Checker: Dolores Morataya MD Blood BLOOD SPECIMEN / Unknown Lab Venipuncture / Unknown 10/19/2021 12:26 PM CDT 10/19/2021 1:15 PM CDT Abrahan Reynaga MD LAB - CHEMISTRY TEODORO PRINCE Performing Organization Address [facility]/ZIP Co de Phone Number [facility] ([facility]) [address] * (ABNORMAL) CENTROMERE B ANTIBODIES (10/19/2021 12:26 PM CDT) Centromere B Antibody >8.0(H) 0.0 - 0.9 AI 10/20/2021 3:08 PM CDT [facility] ([facility]) Blood BLOOD SPECIMEN / Unknown Lab Venipuncture / Unknown 10/19/2021 12:26 PM CDT 10/19/2021 1:15 PM CDT Narrative [facility] ([facility]) - 10/20/2021 3:08 PM CDT Performed at: - [facility] [address] [place], [place] [id number] Mold Bunch Trimmer: Abebe Isaac PhD, Phone: [phone] Abrahan Reynaga MD LAB - SEROLOGY ORDER ANN-MARIE Performing Organization Address City/[facility]/ZIP Co de Phone Number [facility] ([facility]) [address] [place] [address], [facility] * CHROMATIN ANTIBODY (10/19/2021 12:26 PM CDT) Chromatin Antibody 8 0 - 19 Units 10/23/2021 6:41 PM CDT [facility] ([facility]) Comment: INTERPRETIVE INFORMATION: Chromatin Antibody, IgG 19 Units or less: Negative 20 - 60 Units: Moderate Positive 61 Units or greater: Strong Positive The presence of anti-chromatin antibodies may be useful in the diagnosis of systemic lupus erythematosus (SLE) or drug-induced lupus (DIL) and have been reported to be predictive of lupus nephritis, especially when antibody levels are high. Performed By: [facility] [address] [place] [address] Warehouse Checker: Dolores Morataya MD Blood BLOOD SPECIMEN / Unknown Lab Venipuncture / Unknown 10/19/2021 12:26 PM CDT 10/19/2021 1:15 PM CDT Abrahan Reynaga MD LAB - SEROLOGY ORDER ANN-MARIE [facility]) [address] [place] [address], [facility] * GUILLEN (SM) ANTIBODY FERMIN (10/19/2021 12:26 PM CDT) Guillen (FERMIN) Antibody 4 0 - 40 AU/mL 10/20/2021 11:36 PM CDT [facility] ([facility]) Comment: INTERPRETIVE INFORMATION: Guillen (FERMIN) Antibody, IgG 29 AU/mL or Less ............. Negative 30 - 40 AU/mL ................ Equivocal 41 AU/mL or Greater .......... Positive Guillen antibody is highly specific (greater than 90 percent) for systemic lupus erythematosus (SLE) but only occurs in 30-35 percent of SLE cases. The presence of antibodies to Guillen has variable associations with SLE clinical manifestations. Performed By: [facility] [address] [place] [address] Warehouse Checker: Dolores Morataya MD Blood BLOOD SPECIMEN / Unknown Lab Venipuncture / Unknown 10/19/2021 12:26 PM CDT 10/19/2021 1:14 PM CDT Abrahan Reynaga MD LAB - CHEMISTRY ORDE SURESH Performing Organization Address City/[facility]/ZIP Co de Phone Number [facility]) [address] * (ABNORMAL) C-REACTIVE PROTEIN (10/19/2021 12:26 PM CDT) [facility] C-Reactive Protein 6.7(H) <=0.5 mg/dL 10/19/2021 1:[address] [facility] Blood BLOOD SPECIMEN / Unknown Lab Venipuncture / Unknown 10/19/2021 12:26 PM CDT 10/19/2021 1:14 PM CDT Abrahan Reynaga MD LAB - CHEMISTRY TEODORO PRINCE Performing Organization Address [facility] Co de Phone Number [address] [address], [facility] [phone] * HISTONE ANTIBODY (10/19/2021 12:26 PM CDT) [facility] Histone Antibody IgG 0.6 0.0 - 0.9 Units 10/22/2021 4:33 PM CDT [facility] ([facility]) Comment: INTERPRETIVE INFORMATION: Histone Ab, IgG 0.9 Units or less ............ Negative 1.0 - 1.5 Units .............. Weak Positive 1.6 - 2.5 Units .............. Moderate Positive 2.6 Units or greater ......... Strong Positive Performed By: [facility] [address] [place] [address] Warehouse Checker: Dolores Morataya MD Blood BLOOD SPECIMEN / Unknown Lab Venipuncture / Unknown 10/19/2021 12:26 PM CDT 10/19/2021 1:15 PM CDT Abrahan Reynaga MD LAB - CHEMISTRY TEODORO PRINCE Performing Organization Address City/[facility]/ZIP Co de Phone Number [facility]) [address] * SS-B (SJOGREN'S) ANTIBODY (10/19/2021 12:26 PM CDT) Pathologist [facility] SS-B Antibody 1 0 - 40 AU/mL 10/20/2021 10:55 PM CDT [facility] [employer] ([facility]) Comment: INTERPRETIVE INFORMATION: SSB (La) (FERMIN) Ab, IgG 29 AU/mL or Less ............. Negative 30 - 40 AU/mL ................ Equivocal 41 AU/mL or Greater .......... Positive SSB (La) antibody is seen in 50-60% of Sjogren syndrome cases and is specific if it is the only FERMIN antibody present. 15-25% of patients with systemic lupus erythematosus (SLE) and 5-10% of patients with progressive systemic sclerosis (PSS) also have this antibody. Performed By: [facility] [address] [place] [address] Warehouse Checker: Dolores Morataya MD Blood BLOOD SPECIMEN / Unknown Lab Venipuncture / Unknown 10/19/2021 12:26 PM CDT 10/19/2021 1:15 PM CDT Abrahan Reynaga MD LAB - CHEMISTRY TEODORO PRINCE [employer] [facility]) [address] [place] [address], [facility] * DNA ANTIBODY DOUBLE STRANDED (10/19/2021 12:26 PM CDT) [facility] dsDNA Antibody 6 0 - 24 IU 10/22/2021 11:23 PM CDT [employer] ([facility]) Comment: INTERPRETIVE INFORMATION: Double-Stranded DNA (dsDNA) Ab IgG FLORENTINO 24 IU or less........Negative 25-30 IU.............Borderline Positive 30-60 IU.............Low Positive 60-200 IU............Positive 201 IU or greater....Strong Positive Positivity for anti-double stranded DNA (anti-dsDNA) IgG antibody is a diagnostic criterion of systemic lupus erythematosus (SLE). Specimens are initially screened by enzyme-linked immunosorbent assay (FLORENTINO). If ordered as reflex ([id number]), positive FLORENTINO results (>24 IU) will be reflexed to a highly specific IFA titer (Crithidia luciliae indirect fluorescent test [MICK]) for confirmation. Some patients with early or inactive SLE may be positive for anti-dsDNA IgG by FLORENTINO but negative by MICK. If the patient is negative by MICK but positive by FLORENTINO and clinical suspicion remains, consider antinuclear antibody (ROMEO) testing by IFA. Additional information and recommendations for testing may be found at [email or web address]. Performed By: [facility] [address] [place] [address] Warehouse Checker: Dolores Morataya MD Blood BLOOD SPECIMEN / Unknown Lab Venipuncture / Unknown 10/19/2021 12:26 PM CDT 10/19/2021 1:15 PM CDT Abrahan Reynaga MD LAB - HEMATOLOGY ORD ERACARLINE Performing Organization Address City/[facility]/ZIP Co de Phone Number [facility] [employer] ([facility]) [address] [place] [address] * ALDOLASE (10/19/2021 12:26 PM CDT) [facility] Aldolase 4.9 1.2 - 7.6 U/L 10/21/2021 7:11 AM CDT [facility] [employer] ([facility]) Comment: REFERENCE INTERVAL: Aldolase Access complete set of age- and/or gender-specific reference intervals for this test in the [employer] [facility] Test Directory ([employer]). Performed By: [facility] [address] [place] [address] Warehouse Checker: Dolores Morataya MD Blood BLOOD SPECIMEN / Unknown Lab Venipuncture / Unknown 10/19/2021 12:26 PM CDT 10/19/2021 1:15 PM CDT Abrahan Reynaga MD LAB - CHEMISTRY TEODORO PRINCE Performing Organization Address [facility]/ZIP Co de Phone Number [facility] [employer] [facility]) [address] [place] [place] [address] * ERYTHROCYTE SEDIMENTATION RATE (10/19/2021 12:26 PM CDT) Erythrocyte Sedimentation Rate Westergren 16 0 - 30 MM/HR 10/19/2021 1:48 PM CDT [facility] Blood BLOOD SPECIMEN / Unknown Lab Venipuncture / Unknown 10/19/2021 12:26 PM CDT 10/19/2021 1:16 PM CDT Abrahan Reynaga MD LAB - HEMATOLOGY ORD FLOYD [address] [address], [place] [phone] * LDH BLOOD (10/19/2021 12:26 PM CDT) Pathologist [facility] LDH Total 170 125 - 243 Units/L 10/19/2021 1:45 PM CDT [facility] Blood BLOOD SPECIMEN / Unknown Lab Venipuncture / Unknown 10/19/2021 12:26 PM CDT 10/19/2021 1:16 PM CDT Abrahan Reynaga MD LAB - CHEMISTRY TEODORO PRINCE Performing Organization Address City/[facility]/ZIP Co de Phone Number [address] [address], [place] [phone] * CK BLOOD (10/19/2021 12:26 PM CDT) Pathologist [facility] CK Total 68 30 - 200 U/L 10/19/2021 1:45 PM CDT [facility] Blood BLOOD SPECIMEN / Unknown Lab Venipuncture / Unknown 10/19/2021 12:26 PM CDT 10/19/2021 1:16 PM CDT Abrahan Reynaga MD LAB - CHEMISTRY TEODORO PRINCE [address] [address], [place] [phone] * XR HAND RIGHT 3VW OR MORE (10/19/2021 11:59 AM CDT) Anatomical Region Laterality Modality Wrist / Hand Radiographic Gabrielle ging 10/19/2021 12:0 4 PM CDT Impressions 10/19/2021 12:09 PM CDT IMPRESSION: 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 A few soft tissue calcifications in the fingers, right greater than left. 2.Normal joint spaces. This report was electronically signed by FRANCISCO SANTOS MD on 10/19/2021 12:09 PM . Narrative 10/19/2021 12:09 PM CDT Exam: XR HAND RIGHT 3VW OR MORE, XR HAND LEFT 3VW OR MORE History: R76.8: Positive ROMEO (antinuclear antibody) I73.00: Raynaud's disease without gangrene Comparison: None. Findings: Right hand: No acute fracture or dislocation. The second finger distal phalanx is truncated at the level of the base which may be due to acroosteolysis or amputation. The third finger distal phalanx tuft is relatively small intramammary represent acro osteolysis. There is soft tissue thinning of both fingertips. Several soft tissue calcifications are seen including in the first, second, fourth fingers. The joint spaces are normal. No articular erosions are identified. Bone density is normal. Left hand: No acute fracture or dislocation. There is deformity with mild loss of the second and third finger distal phalanges compatible with acroosteolysis, with overlying soft tissue thinning. A small soft tissue calcification is seen in the second finger. The joint spaces are normal. No erosions are present. Bone density is normal. Procedure Note Francisco Santos MD - 10/19/2021 Exam: XR HAND RIGHT 3VW OR MORE, XR HAND LEFT 3VW OR MORE History: R76.8: Positive ROMEO (antinuclear antibody) I73.00: Raynaud's disease without gangrene Comparison: None. Findings: Right hand: No acute fracture or dislocation. The second finger distal phalanx is truncated at the level of the base which may be due to acroosteolysis or amputation. The third finger distal phalanx tuft is relatively small intramammary represent acro osteolysis. There is soft tissue thinning of both fingertips. Several soft tissue calcifications are seen includingin the first, second, fourth fingers. The joint spaces are normal. No articular erosions are identified. Bone density is normal. Left hand: No acute fracture or dislocation. There is deformity with mild loss ofthe second and third finger distal phalanges compatible with acroosteolysis, with overlying soft tissue thinning. A small soft tissue calcificationis seen in the second finger. The joint spaces are normal. No erosions are present. Bone density is normal. 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 A few soft tissue calcifications in the fingers, right greater than left. 2.Normal joint spaces. This report was electronically signed by FRANCISCO SANTOS MD on10/19/2021 12:09 PM . 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 A few soft tissue calcifications in the fingers, right greater than left. 2.Normal joint spaces. This report was electronically signed by FRANCISCO SANTOS MD on 10/19/2021 12:09 PM . Narrative 10/19/2021 12:09 PM CDT Exam: XR HAND RIGHT 3VW OR MORE, XR HAND LEFT 3VW OR MORE History: R76.8: Positive ROMEO (antinuclear antibody) I73.00: Raynaud's disease without gangrene Comparison: None. Findings: Right hand: No acute fracture or dislocation. The second finger distal phalanx is truncated at the level of the base which may be due to acroosteolysis or amputation. The third finger distal phalanx tuft is relatively small intramammary represent acro osteolysis. There is soft tissue thinning of both fingertips. Several soft tissue calcifications are seen including in the first, second, fourth fingers. The joint spaces are normal. No articular erosions are identified. Bone density is normal. Left hand: No acute fracture or dislocation. There is deformity with mild loss of the second and third finger distal phalanges compatible with acroosteolysis, with overlying soft tissue thinning. A small soft tissue calcification is seen in the second finger. The joint spaces are normal. No erosions are present. Bone density is normal. Procedure Note Francisco Santos MD - 10/19/2021 Exam: XR HAND RIGHT 3VW OR MORE, XR HAND LEFT 3VW OR MORE History: R76.8: Positive ROMEO (antinuclear antibody) I73.00: Raynaud's disease without gangrene Comparison: None. Findings: Right hand: No acute fracture or dislocation. The second finger distal phalanx is truncated at the level of the base which may be due to acroosteolysis or amputation. The third finger distal phalanx tuft is relatively small intramammary represent acro osteolysis. There is soft tissue thinning of both fingertips. Several soft tissue calcifications are seen includingin the first, second, fourth fingers. The joint spaces are normal. No articular erosions are identified. Bone density is normal. Left hand: No acute fracture or dislocation. There is deformity with mild loss ofthe second and third finger distal phalanges compatible with acroosteolysis, with overlying soft tissue thinning. A small soft tissue calcificationis seen in the second finger. The joint spaces are normal. No erosions are present. Bone density is normal. 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 A few soft tissue calcifications in the fingers, right greater than left. 2.Normal joint spaces. This report was electronically signed by FRANCISCO SANTOS MD on10/19/2021 12:09 PM . Abrahan Reynaga MD DIAGNOSTIC IMAGING O RDERABLES * XR CHEST 2VW (10/19/2021 11:59 AM CDT) Anatomical Region Laterality Modality Chest Radiographic Gabrielle ging 10/19/2021 2:21 PM CDT Impressions 10/19/2021 5:15 PM CDT IMPRESSION: 1.No acute pulmonary process is seen. Report drafted by Victorina Ashley M.D. (resident) Dr. Mikie Benjamin M.D. have personally reviewed and interpreted this examination/study. This report was electronically signed by Mikie MENDES M.D. on 10/19/2021 5:15 PM . Narrative 10/19/2021 5:15 PM CDT EXAMINATION: XR CHEST 2VW HISTORY: R76.8: Positive ROMEO (antinuclear antibody) I73.00: Raynaud's disease without gangrene COMPARISON: None. FINDINGS: No focal consolidation, pleural effusion, or pneumothorax is seen. The cardiomediastinal silhouette is normal. No acute fractures are seen. Procedure Note Bonny Mendes MD - 10/19/2021 EXAMINATION: XR CHEST 2VW HISTORY: R76.8: Positive ROMEO (antinuclear antibody) I73.00: Raynaud's disease without gangrene COMPARISON: None. FINDINGS: No focal consolidation, pleural effusion, or pneumothorax is seen. The cardiomediastinal silhouette is normal. No acute fractures are seen. IMPRESSION: 1.No acute pulmonary process is seen. Report drafted by Victorina Ashley M.D. (resident) Dr. Mikie Benjamin M.D. have personally reviewed and interpretedthis examination/study. This report was electronically signed by Mikie MENDES M.D. on 10/19/2021 5:15 PM . Abrahan Reynaga MD DIAGNOSTIC IMAGING O RDERABLES * (ABNORMAL) LIPID PROFILE (02/17/2009 11:48 AM CDT) Cholesterol 224(H) 100 - 199 mg/dL [facility] ACCOUNT BILL Triglycerides 139 0 - 149 mg/dL [facility] ACCOUNT BILL HDL Cholesterol 55 >39 mg/dL [facility] ACC[facility] B[facility] Comment: According to ATP-III Guidelines, HDL-C >59 mg/dL is considered a negative risk factor for CHD. VLDL Calculated 28 5 - 40 mg/dL [facility] ACCOUNT BILL LDL Calculated 141(H) 0 - 99 mg/dL [facility] ACCOUNT BILL BLOOD SPECIMEN / Unknown 02/17/2009 11:48 AM CDT 02/17/2009 6:31 PM CDT Narrative Resulting Agency Comment [facility] [address] [phone] Kirt Rico MD LAB - CHEMISTRY TEODORO PRINCE [facility] Organization Address City/State/ZIP Co de Phone Number [facility] ACCOUNT BILL * GROSS + MICRO EXAM (05/14/2006 9:12 AM TRAVEL FREIGHT AND PASSENGER AGENT) Result CASE NUMBER [id number] Comment: ORDERING PHYSICIAN SAFIA REID SPECIMEN TYPE Esophagus,Biopsy Surgeon DR. SAFIA REID Gross Exam JAZMIN MADDOX Gross Report COPY TO DR. KIRT RICO INDICATION FOR PROCEDURE DYSPHAGIA OPERATION GROSS THE SPECIMEN IS RECEIVED IN ONE CONTAINER LABELED WITH THE PATIENT'S NAME AND GE JUNCTION STRICTURE . THE SPECIMEN CONSISTS OF FIVE 1 MM. FRAGMENTS OF DALY RED TISSUE. ALL SUBMITTED IN A SINGLE CASSETTE. LW/CS MICROSCOPIC EXAM MICROSCOPIC SECTIONS OF THE GE JUNCTION STRICTURE SHOW SQUAMOUS EPITHELIUM AND COLUMNAR EPITHELIUM. THERE IS ACUTE AND CHRONIC INFLAMMATION SEEN. INFLAMMATION IS MODERATE. NO MALIGNANCY IS IDENTIFIED. NO APPARENT INTESTINAL METAPLASIA IS SEEN. JW/CS DIAGNOSIS DIAGNOSIS [1] GE JUNCTION, STRICTURE -- ACUTE AND CHRONIC INFLAMMATION, MODERATE JW/CS Released By MAGALY CRANE CPT Code 58854 MISCELLANEOUS SAMPLES / Unknown 05/14/2006 9:12 AM TRAVEL FREIGHT AND PASSENGER AGENT 05/14/2006 9:15 AM TRAVEL FREIGHT AND PASSENGER AGENT Historical Provider LAB - PATHOLOGY/C YTOLOGY ORDERABLES Care Teams Mathematical Scientist Relationship Specialty Start Date End Date KimberlyJermainey [address] [place] [phone] PCP - General 05/25/24
--- OUTSIDE RECORDS SUMMARY | 2024-07-13 07:13 | XMS_ITS | Clinical Summary ---
Author Organization [email or web address] Address [address] [place] [address] Care Team Providers Care Md Urologist Name Role Phone Elisa Harris Primary Care Provider [phone] [email or web address],non-owned Affiliates and Associated Physician Practices is amultiple site organization consisting of ambulatory clinics and hospital sitesin [place], [place], [place] and [place]. This disclosure is being madepursuant to the Care Everywhere program and may not contain all information available regarding this patient. Last updated 18.[email or web address] Allergies No known active allergies Medications * Be aware that medications may not be up to date on this document. Alwaysverify current medications with the patient. Medication Sig Dispensed Refills Start Date End Date Status metoprolol succinate XL 24hr (TOPROL XL) 25 MG tablet Take 1 (one) tablet by mouth once daily 09/20/2021 Active gentamicin (GARAMYCIN) 0.1 % topical ointmentIndicatio ns:Dermal Ulcer Apply to affected area 3 times daily Reasons: Skin Ulcer 30 g 2 10/19/2021 Active omeprazole (PriLOSEC) 20 MG capsule Take 1 (one) capsule by mouth 2 times daily, before breakfast and supper Active citalopram (CeleXA) 40 MG tablet Take 1 (one) tablet by mouth once daily Active NIFEdipine CR osmotic 24hr (Procardia-XL) 60 MG tablet Take 1 (one) tablet by mouth once daily Active albuterol HFA (Proventil; Ventolin; Proair) 108 (90 Base) MCG/ACT inhaler INHALE 2 PUFFS BY MOUTH EVERY 4 HOURS NEEDED FOR SHORTNESS OF BREATH 8.5 g 3 02/13/2024 Active guaiFENesin ER 12hr (Mucinex) 600 MG tablet Take 1 (one) tablet by mouth every 12 hours Active torsemide (Demadex) 5 MG tabletIndications :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) Take 1 (one) tablet by mouth once daily 90 tablet 3 05/29/2024 Active tadalafil, PAH, (Adcirca) 20 MG tablet 06/11/2024 Active macitentan (Opsumit) 10 MG tablet Take 1 (one) tablet by mouth once daily Active amoxicillin-clavu lanate (Augmentin) 875-125 MG tablet Take 1 (one) tablet by mouth 2 times daily with morning and evening meal 05/22/2024 06/22/2024 Discontinued (List Clean-Up) Active Problems Problem Noted Date Diagnosed Date 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 05/20/2024 Recurrent major depressive disorder, in remissio n 05/18/2024 Stage 3a chronic kidney disease 05/18/2024 Metabolic acidosis 05/18/2024 Dyspnea on exertion 05/17/2024 Elevated liver enzymes 05/17/2024 Scleroderma 06/08/2022 Shortness of breath 05/24/2022 Breast cancer screening 02/17/2009 Erythrocytosis 01/13/2009 Screening for condition 01/13/2009 Overview (03/03/2015): Colonoscopy 05/2006 Dr Robbins Mammogram: Mood swings 01/03/2009 Esophageal reflux 01/03/2009 Hypertension 12/31/2008 Stroke 12/31/2008 Overview (12/31/2008): Age 12 due to sbp 200 Kidney damage 12/31/2008 Overview (12/31/2008): Recurring uti chills MVP (mitral valve prolapse) 12/31/2008 Indigestion 12/31/2008 Encounters Date Type Department Care Team Description 07/08/2024 11:00 AM RESIDENCE COUNSELOR Office Visit [facility] - Cardiology [address], [facility] [address] [place] [address] Dariana Malik APRN-[place] Scleroderma ([facility]) (Primary Dx); Primary hypertension; MVP (mitral valve prolapse); Right-sided heart failure, unspecified HF chronicity (HCC); Chronic kidney disease, unspecified CKD stage; 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 ([facility]) 07/08/2024 Travel 06/23/2024 Telephone [facility] - Pulmonology [facility] [facility], [place] [address] Flavia Caraballo, RN Follow-up 06/22/2024 1:00 PM RESIDENCE COUNSELOR Office Visit [facility] - Rheumatology [address] [place] [address], [place] [address] Abrahan Reynaga MD Scleroderma ([facility]) (Primary Dx); Medication monitoring encounter 06/22/2024 Travel 06/16/2024 Refill [facility] SHORT STAY UNIT [address] [place] [address] Alejandro Whittington MD Refill Request 06/05/2024 Telephone [facility] - Pulmonology [facility] [place] [address] Flavia Caraballo, RN Update 05/29/2024 12:00 PM RESIDENCE COUNSELOR - 05/29/2024 1:25 PM [facility] Surgery [facility] - Cardiac Other Sports Coach Or Instructor [address] [place] [address] Brandon Hudson MD Right Heart Cath 05/29/2024 9:45 AM RESIDENCE COUNSELOR - 05/29/2024 2:17 PM [facility] Hospital Encounter [facility] AURA OP [address] [place] [address] Brandon Hudson MD Cardiac Catheterization Discharge Disposition: Home or Self Care 05/29/2024 Telephone [facility] Pulmonology [address] [place] [address] Brandon Hudson MD Order 05/29/2024 Travel 05/25/2024 9:00 AM RESIDENCE COUNSELOR Office Visit [facility] at [place] [address] [place] [phone] Ashley Singh, PHP DEVELOPER-[facility] Hospital discharge follow-up (Primary Dx); Pulmonary hypertension (HCC) 05/25/2024 Travel 05/22/2024 Telephone Transitional Care at [address] [phone] Katya Guadalupe RN Reminder Call 05/20/2024 Orders Only [facility] - Pulmonology [address] [facility], [facility] [place] [address] Brandon Hudson MD 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 (AF LURIA, FLUZONE TRIVALENT; 6MO+) (IIV3) 03/24/2015,03/29/2014 FLU VACCINE QUAD IIV4 SPLIT 0.25 ML IM 7 Family History Medical History Relation Name Comments None Known Brother 1 None Known Brother 2 None Known Brother 3 None Known Daughter Cancer Mother breast cancer None Known Sister 1 None Known Sister 2 None Known Sister 3 None Known Son 1 None Known Son 2 Relation Name Status Comments Brother 1 Alive Brother 2 Alive Brother 3 Alive Daughter Alive Father Alive Maternal Grandfather Maternal Grandmother Mother Paternal Grandfather Paternal Grandmother Sister 1 Alive Sister 2 Alive Sister 3 Alive Son 1 Alive Son 2 Alive Social History Tobacco Use Types Packs/Day Years [...] Comments Blood Pressure 120/72 07/08/2024 10:26 AM RESIDENCE COUNSELOR Pulse 84 07/08/2024 10:26 AM RESIDENCE COUNSELOR Temperature 36.7 C (98 F) 06/22/2024 1:09 PM RESIDENCE COUNSELOR Respiratory Rate 22 05/29/2024 1:45 PM RESIDENCE COUNSELOR Oxygen Saturation 92% 06/22/2024 1:09 PM RESIDENCE COUNSELOR Inhaled Oxygen Concentration - - Weight 74.8 kg (165 lb) 07/08/2024 10:26 AM RESIDENCE COUNSELOR Height 162.6 cm (5' 4 ) 07/08/2024 10:26 AM RESIDENCE COUNSELOR Body Mass Index 28.32 07/08/2024 10:26 AM RESIDENCE COUNSELOR Plan of Treatment Upcoming Encounters Date Type Department Care Team (Late st Contact Info) Description 08/11/2024 11:30 AM CDT Office Visit [facility] - Pulmonology [address] [facility] [place] [address] Brandon Hudson MD [address] [facility] 2L DIV OF PULMONARY/[place] [address] 09/01/2024 1:00 PM CDT Appointment [facility] ECHO [address] [place] [address] Bethanie José MD [address] [facility] 2L DIV OF PULMONARY/[place] [address] 09/01/2024 2:30 PM CDT Appointment [facility] PFT [address] [place] [phone] Bethanie José MD [address] [facility] 2L DIV OF PULMONARY/[place] [address] 09/08/2024 3:00 PM CDT Office Visit [facility] - Rheumatology [address] [facility] [place] [phone] Abrahan Reynaga MD [address] [facility] 2L [place] [phone] 01/05/2025 10:30 AM CDT [facility] [address] [facility], [address] [place] [address] Dariana Malik, TEJAS-WASTE COTTON CLEANER [address] [place] [address] Health Maintenance Due Date Last Done Comments COLOGUARD (AGES 45-75) - COLON CA SCREENING 1964 COLON MONITORING 1964 COLONOSCOPY - COLON CA SCREENING 1964 CT COLONOGRAPHY - COLON CA SCREENING 1964 Colorectal Cancer Screening 1964 FIT - COLON CA SCREENING 1964 FLEX SIG - COLON CA SCREENING 1964 MAMMOGRAM 1964 PAP SMEAR 1964 HIV SCREENING 09/17/1979 HEPATITIS C SCREENING 09/12/1982 DTAP/TDAP/TD VACCINES (1 - Tdap) 09/17/1983 HEPATITIS B VACCINE (1 of 3 - 19+ 3-dose series) 09/17/1983 LIPID TESTING 02/17/2014 02/17/2009 PNEUMOCOCCAL VACCINE 50+ (1 of 1 - PCV) 2014 ZOSTER VACCINE (1 of 2) 2014 COVID-19 VACCINE (4 - season) 2024 03/10/2021, 06/10/2020, 05/20/2020 INFLUENZA VACCINE (#1) 2024 7, 03/24/2015, 03/29/2014 SCREENING FOR DIABETES 05/18/2027 4, 05/17/2024, 10/19/2021, Additional history exists DEPRESSION SCREENING Completed 06/22/2024, 02/19/2023, 10/19/2021 HIB VACCINE Aged Out No longer eligi ble based on patient's age to complete this topic HPV VACCINE Aged Out No longer eligi ble based on patient's age to complete this topic MENINGOCOCCAL (Group B) VACCINE Aged Out No longer eligible based on patient's age to complete this topic MENINGOCOCCAL VACCINE Aged Out No byron brisa eligible based on patient's age to complete this topic Procedures Procedure Name Priority Date/Time Associated Diagnosis Comments LAB RESULTS ORDER 07/01/2024 CCL RIGHT HEART CATH Routine 05/29/2024 1:05 PM RESIDENCE COUNSELOR 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) RESPIRATORY PANEL WITH SARS-COV-2 BY PCR (STL) Routine 05/18/2024 5:43 PM RESIDENCE COUNSELOR Dyspnea on exertion CARDIAC EKG ORDER 05/18/2024 1:1 3 PM RESIDENCE COUNSELOR ECHO COMPLETE W CONTRAST ANETA 05/18/2024 11:20 AM RESIDENCE COUNSELOR Dyspnea on exertion Shortness of breath PT EVAL AND TREAT Routine 05/18/2024 1:5 9 AM RESIDENCE COUNSELOR COMPREHENSIVE METABOLIC PANEL Routine 05/18/2024 12:34 AM RESIDENCE COUNSELOR Elevated liver enzymes CT CHEST WO CONTRAST STAT 05/17/2024 4:49 PM RESIDENCE COUNSELOR SOB (shortness of breath) XR CHEST 1VW PORTABLE STAT 05/17/2024 4:15 PM RESIDENCE COUNSELOR SOB (shortness of breath) TROPONIN-I HIGH SENSITIVE REFLEX 1HOUR Timed 05/17/2024 2:57 PM RESIDENCE COUNSELOR EKG 12-LEAD STAT 05/17/2024 1:41 PM RESIDENCE COUNSELOR SOB (shortness of breath) B-TYPE NATRIURETIC PEPTIDE STAT 05/17/2024 1:25 PM RESIDENCE COUNSELOR TROPONIN-I HIGH SENSITIVE BASELINE + 1HR STAT 05/17/2024 1:25 PM RESIDENCE COUNSELOR COMPREHENSIVE METABOLIC PANEL STAT 05/17/2024 1:25 PM RESIDENCE COUNSELOR CBC W AUTO DIFFERENTIAL STAT 05/17/2024 1:25 PM RESIDENCE COUNSELOR LIPID PROFILE Routine 02/17/2009 11:48 AM CDT Htn from Last 3 Months or Most Recently Relevant to Health Maintenance Results * LAB RESULTS ORDER (07/01/2024) Narrative 07/01/2024 Ordered by an unspecified provider. Scanned Document LAB - THERAPEUTIC DR HERNANDEZ MONITORING ORDERABLES * CCL RIGHT HEART CATH (05/29/2024 1:05 PM RESIDENCE COUNSELOR) Anatomical Region Laterality Modality X-Ray Angiograph y Narrative 05/29/2024 4:25 PM RESIDENCE COUNSELOR [facility]. Department of Pulmonary and Critical Care Medicine [...] blood and flushed with saline. A 7 spanish swan-em catheter was advanced through the sheath [...] * RESPIRATORY PANEL WITH SARS-COV-2 BY PCR (RUST) (05/18/2024 5:43 PM RESIDENCE COUNSELOR) Adenovirus PCR Not detected Not detected 05/19/2024 12:[address] [facility] Coronavirus 229E PCR Not detected Not detected 05/19/2024 12:59 AM RESIDENCE COUNSELOR [facility] Coronavirus HKU1 PCR Not detected Not detected 05/19/2024 12:59 AM RESIDENCE COUNSELOR [facility] Coronavirus NL63 PCR Not detected Not detected 05/19/2024 12:59 AM RESIDENCE COUNSELOR [facility] Coronavirus OC43 PCR Not detected Not detected 05/19/2024 12:59 AM RESIDENCE COUNSELOR [facility] COVID-19 PCR Not detected Not detected 05/19/2024 12:59 AM RESIDENCE COUNSELOR [facility] Human Metapneumovirus PCR Not detected Not detected 05/19/2024 12:59 AM RESIDENCE COUNSELOR [facility] Human Rhinovirus/Enterov irus PCR Not detected Not detected 05/19/2024 12:59 AM RESIDENCE COUNSELOR [facility] Influenza A PCR Not detected Not detected 05/19/2024 12:59 AM RESIDENCE COUNSELOR [facility] Influenza B PCR Not detected Not detected 05/19/2024 12:59 AM RESIDENCE COUNSELOR [facility] Parainfluenza Virus 1 PCR Not detected Not detected 05/19/2024 12:59 AM RESIDENCE COUNSELOR [facility] Parainfluenza Virus 2 PCR Not detected Not detected 05/19/2024 12:59 AM RESIDENCE COUNSELOR [facility] Parainfluenza Virus 3 PCR Not detected Not detected 05/19/2024 12:59 AM RESIDENCE COUNSELOR [facility] Parainfluenza Virus 4 PCR Not detected Not detected 05/19/2024 12:59 AM RESIDENCE COUNSELOR [facility] Respiratory Syncytial Virus PCR Not detected Not detected 05/19/2024 12:59 AM RESIDENCE COUNSELOR [facility] Bordetella parapertussis PCR Not detected Not detected 05/19/2024 12:59 AM RESIDENCE COUNSELOR [facility] Bordetella pertussis PCR Not detected Not detected 05/19/2024 12:59 AM RESIDENCE COUNSELOR [facility] Chlamydia pneumoniae PCR Not detected Not detected 05/19/2024 12:59 AM RESIDENCE COUNSELOR [facility] Mycoplasma pneumoniae PCR Not detected Not detected 05/19/2024 12:59 AM RESIDENCE COUNSELOR [facility] Microbiology SPECIMEN FROM NASOPHARYNGEAL STRUCTURE / Unknown Collection / Unknown 05/18/2024 5:43 PM RESIDENCE COUNSELOR 05/18/2024 6:00 PM RESIDENCE COUNSELOR [facility] - 05/19/2024 12:59 AM RESIDENCE COUNSELOR This nucleic amplification assay has received FDA authorization via the [employer] Pathway. Mary Beth Carr MD LAB - MICROBIOLOGY O RDERABLES [facility] [address] [place] [address], [facility] [phone] * CARDIAC EKG ORDER (05/18/2024 1:13 PM RESIDENCE COUNSELOR) Narrative 05/18/2024 1:13 PM RESIDENCE COUNSELOR Ordered by an unspecified provider. Scanned Document CARDIAC SERVICES ORD ERABLES * ECHO COMPLETE W CONTRAST (05/18/2024 11:20 AM RESIDENCE COUNSELOR) LA vol index 0.017 l/m [facility] Myocardial strain charge 2 unitless [facility] IVSd 2D 1.316 cm [facility] P[facility] LVIDd 4.582 cm [facility] PACS LVIDs 2.604 cm [facility] LVOT diam 1.957 cm [facility] PACS LVPWd 0.896 cm [facility] PACS LV biplane EF 74.5 % [facility] LV A2C EF 72.686 % [facility] I PACS LV A4C EF 75.185 % [facility]UJ I PACS LV EDV A2C 84.371 ml [facility] CV FU JI PACS LV EDV A4C 70.614 ml [facility] FU JI PACS LV ESV A2C 23.045 ml [facility] FU JI PACS LV ESV A4C 17.523 ml [facility] FU JI PACS LVOT pk jordin 114.901 cm/s [facility] F UJI PACS LVOT VTI 23.704 cm [facility] FUJ I PACS RV-nielson basal diam 4.172 cm [facility] FUJ[facility] PACS RVIDd 2.564 cm [facility] FUJ I PACS RVOT pk jordin 59.451 cm/s [facility] F UJI PACS RVOT VTI 14.566 cm [facility]UJ I PACS LA size 4.088 cm [facility] I PACS LA vol BP 31.64 ml [facility] P[facility] RA area 22.466 cm [facility] AV mn grad 4.125 mmHg [facility]U JI PACS AV pk jordin 151.933 cm/s [facility] PACS AV VTI 30.817 cm [facility] I PACS MV A pk jordin 69.281 cm/s [facility] CV F UJI PACS MV E pk jordin 91.847 cm/s [facility] CV F UJI PACS MV E' lateral jordin 8.623 cm/s [facility]UJ[facility] PACS MV mn grad 1.73 mmHg [facility] FU JI PACS MV VTI 26.13 cm [facility] PACS PV pk jordin 87.765 cm/s [facility]UJ I PACS PV VTI 21.772 cm [facility] FUJ I PACS TAPSE 1.362 cm [facility]UJ I PACS Ascending aorta 2.807 cm [facility] IVC Diam Expiration 2.141 cm [facility] Anatomical Region Laterality Modality Ultrasound 05/18/2024 10:3 5 AM RESIDENCE COUNSELOR Narrative 05/18/2024 2:39 PM RESIDENCE COUNSELOR Summary * The left ventricle is normal [...] 10:35 AM Patient Status: OPO Study Site: [facility] Primary Location: [facility] EStudy Info Technical Quality: Adequate Exam [...] Provider: Michael Howard Attending Physician: Michael Howard Quick Print Operator: Cesar Díaz Left Ventricle The left ventricle [...] 10:35 AM Patient Status: OPO Study Site: [facility] Primary Location: [facility] EStudy Info Technical Quality: Adequate Exam [...] Provider: Michael Howard Attending Physician: Michael Howard Quick Print Operator: Cesar Díaz Left Ventricle The left ventricle [...] Husam Vale on 05/18/2024 02:39 PM Michael Howard MD ECHO CUPID * (ABNORMAL) COMPREHENSIVE METABOLIC PANEL (05/18/2024 12:34 AM [facility]) Only the most recent of2 resultswithin the time period is included. BUN 19 7 - 26 mg/dL 05/18/2024 1:45 AM [facility] Creatinine 1.28(H) 0.56 - 0.96 mg/dL 05/18/2024 1:45 AM [facility] Sodium 139 136 - 145 mmol/L 05/18/2024 1:45 AM [facility] Potassium 4.5 3.5 - 4.5 mmol/L 05/18/2024 1:45 AM [facility] Chloride 111(H) 98 - 107 mmol/L 05/18/2024 1:45 AM [facility] CO2 20(L) 22 - 29 mmol/L 05/18/2024 1:45 AM [facility] Glucose 164(H) 70 - 99 mg/dL 05/18/2024 1:45 AM [facility] Calcium 8.9 8.4 - 10.2 mg/dL 05/18/2024 1:45 AM [facility] Protein Total 6.0 6.0 - 8.3 g/dL 05/18/2024 1:45 AM [facility] Albumin 3.3(L) 3.4 - 5.0 g/dL 05/18/2024 1:45 AM [facility] Bilirubin Total 0.5 0.2 - 1.2 mg/dL 05/18/2024 1:45 AM [facility] Alkaline Phosphatase 61 40 - 150 U/L 05/18/2024 1:45 AM [facility] ALT 82(H) 5 - 55 U/L 05/18/2024 1:45 AM [facility] AST 26 5 - 34 U/L 05/18/2024 1:45 AM [facility] Anion Gap 8 6 - 16 05/18/2024 1:45 AM [facility] BUN/Creatinine Ratio 15 7 - 23 05/18/2024 1:45 AM [facility] Osmolality Calculated 294 275 - 295 mOsm/kg 05/18/2024 1:45 AM [facility] Albumin/Globulin Ratio 1.2 1.1 - 2.3 05/18/2024 1:45 AM [facility] eGFR by CKD-EPI 48(L) >=90 mL/min/1.7 3 m2 05/18/2024 1:45 AM [facility] Blood BLOOD SPECIMEN / Unknown Lab Venipuncture / Unknown 05/18/2024 12:34 AM RESIDENCE COUNSELOR 05/18/2024 1:17 AM RESIDENCE COUNSELOR Michael Howard MD LAB - CHEMISTRY TEODORO PRINCE [facility] Organization Address City/State/ZIP Co de Phone Number [facility] [address] [place] [address], [facility] [phone] * CT Chest Wo Contrast (05/17/2024 4:49 PM RESIDENCE COUNSELOR) Anatomical Region Laterality Modality Chest Computed Tomogra phy 05/17/2024 5:47 PM RESIDENCE COUNSELOR Impressions 05/17/2024 10:21 PM RESIDENCE COUNSELOR Impression 1. Small pericardial effusion measuring up to 12 mm. 2. Dilated and fluid-filled esophagus suggestive of passive esophageal reflux. Report dictated by Jonnie Guido MD(academic affairs vice president). Zachery Benjamin MD have personally reviewed and interpreted this examination/study. > Interpreting Provider: Zachery Tello MD on 05/17/2024 10:21 PM Narrative 05/17/2024 10:21 PM RESIDENCE COUNSELOR PROCEDURE: CT CHEST WO CONTRAST, DATE/TIME OF EXAM: 05/17/2024 4:50 PM, LOCATION [facility] INDICATION: R06.02: SOB (shortness of breath) ADDITIONAL [...] CONTRAST, DATE/TIME OF EXAM: 05/17/2024 4:50PM, LOCATION [facility] INDICATION: R06.02: SOB (shortness of breath) ADDITIONAL [...] esophageal reflux. Report dictated by Jonnie Guido MD(academic affairs vice president). I, Zachery Tello MD have personally reviewed and interpreted this examination/study. > Interpreting Provider: Zachery Tello MD on 05/17/2024 10:21 PM Eder Ramsay MD CT ORDERABLES * XR Chest 1Vw Portable (05/17/2024 4:15 PM RESIDENCE COUNSELOR) Anatomical Region Laterality Modality Chest Digital Radiogra phy 05/17/2024 4:12 PM RESIDENCE COUNSELOR Narrative 05/18/2024 6:20 AM RESIDENCE COUNSELOR PROCEDURE: XR CHEST 1VW PORTABLE, DATE/TIME OF EXAM: 05/17/2024 2:15 PM, LOCATION [facility] INDICATION: R06.02: SOB (shortness of breath) ADDITIONAL [...] normal. Report dictated by Radhames Apple MD, (Technical Laboratory Asst). Sheridan Benjamin MD have personally reviewed and interpreted this examination/study. > Interpreting Provider: Sheridan Abbasi MD on 05/18/2024 6:20 AM Procedure Note Sheridan Abbasi MD - 05/18/2024 PROCEDURE: XR CHEST 1VW PORTABLE, DATE/TIME OF EXAM: 05/17/2024 2:15PM, LOCATION [facility] INDICATION: R06.02: SOB (shortness of breath) ADDITIONAL [...] normal. Report dictated by Radhames Apple MD, (Technical Laboratory Asst). Sheridan Benjamin MD have personally reviewed and interpreted this examination/study. > Interpreting Provider: Sheridan Abbasi MD on 05/18/2024 6:20 AM Kristi Xie PA-C DIAGNOSTIC IM AGING ORDERABLES * TROPONIN-I HIGH SENSITIVE REFLEX 1HOUR (05/17/2024 2:57 PM RESIDENCE COUNSELOR) Troponin I High Sensitive 7 <=14 ng/L 05/17/2024 3:59 PM RESIDENCE COUNSELOR [facility] Delta Troponin I HS 05/17/2024 3:59 PM RESIDENCE COUNSELOR [facility] Comment:Delta value intentio nazario not calculated. Baseline to 1 hour specimen collection interval exceeded. Blood BLOOD SPECIMEN / Unknown Venipuncture / Unknown 05/17/2024 2:57 PM RESIDENCE COUNSELOR 05/17/2024 3:25 PM RESIDENCE COUNSELOR Kristi Xie PA-C LAB - WARP DYEING TENDER RY ORDERABLES Performing Organization Address [facility]/ZIP Co de Phone Number [facility] [address] [place] [address], [place] [phone] * EKG 12-LEAD (05/17/2024 1:41 PM RESIDENCE COUNSELOR) Pathologist [facility] Ventricular Rate 67 BPM [facility] MUSE Atrial Rate 67 BPM [facility] MUSE P-R Interval 158 ms [facility] MUSE QRS Duration ms 68 ms [facility] MUSE Q-T Interval ms 438 ms [facility] MUSE QTC Calculation (Bezet) 462 ms [facility] MUSE Calculated P [place] 51 degrees SL MUSE Calculated R [place] 102 degrees [facility] MUSE Calculated T [place] 56 degrees [facility] MUSE Interpretation EKG NORMAL SINUS RHYTHM RIGHTWARD AXIS T WAVE ABNORMALITY, CONSIDER ANTERIOR ISCHEMIA PROLONGED QT ABNORMAL ECG NO PREVIOUS ECGS AVAILABLE Confirmed by IVY PETERSON MD ([id number]) on 05/18/2024 10:49:39 PM [facility] 05/17/2024 1:41 PM RESIDENCE COUNSELOR 05/18/2024 10:49 PM RESIDENCE COUNSELOR Kristi Xie PA-C ECG ORDERABLE S Performing Organization Address [facility] Co de Phone Number [facility] * TROPONIN-I HIGH SENSITIVE BASELINE + 1HR (05/17/2024 1:25 PM RESIDENCE COUNSELOR) [facility] Troponin I High Sensitive 7 <=14 ng/L 05/17/2024 2:04 PM RESIDENCE COUNSELOR [facility] Blood BLOOD SPECIMEN / Unknown Venipuncture / Unknown 05/17/2024 1:25 PM RESIDENCE COUNSELOR 05/17/2024 1:30 PM RESIDENCE COUNSELOR Kristi Xie PA-C LAB - [employer] DYEING TENDER RY ORDERABLES Performing Organization Address [facility]/ZIP Co de Phone Number [facility] [address] [place] [address], [place] [phone] * (ABNORMAL) CBC W AUTO DIFFERENTIAL (05/17/2024 1:25 PM RESIDENCE COUNSELOR) [facility] WBC 7.0 4.0 - 10.7 x10E9/L 05/17/2024 1:36 PM [facility] RBC Count 5.06 3.90 - 5.20 x10E12/L 05/17/2024 1:36 PM [facility] Hemoglobin 14.3 11.9 - 15.8 g/dL 05/17/2024 1:36 PM [facility] Hematocrit 43.8 34.8 - 46.1 % 05/17/2024 1:36 PM [facility] MCV 86.6 80.0 - 98.0 fL 05/17/2024 1:36 PM [facility] MCH 28.3 26.7 - 33.6 pg 05/17/2024 1:36 PM [facility] MCHC 32.6 31.7 - 36.3 g/dL 05/17/2024 1:36 PM [facility] RDW-CV 14.2 11.3 - 14.8 % 05/17/2024 1:36 PM [facility] Platelet Count 174 150 - 420 x10E9/L 05/17/2024 1:36 PM [facility] MPV 11.7(H) 7.8 - 11.4 fL 05/17/2024 1:36 PM [facility] Neutrophil % 65.4 41.0 - 74.0 % 05/17/2024 1:36 PM [facility] Lymphocyte % 21.6 17.0 - 47.0 % 05/17/2024 1:36 PM [facility] Monocyte % 10.2 3.0 - 11.0 % 05/17/2024 1:36 PM [facility] Eosinophil % 1.8 0.0 - 7.0 % 05/17/2024 1:36 PM [facility] Basophil % 0.7 0.0 - 1.6 % 05/17/2024 1:36 PM [facility] Immature Granulocytes % 0.3 0.0 - 1.0 % 05/17/2024 1:36 PM [facility] Neutrophil Absolute 4.60 1.60 - 7.50 x10E9/L 05/17/2024 1:36 PM [facility] Lymphocyte Absolute 1.52 1.00 - 4.40 x10E9/L 05/17/2024 1:36 PM [facility] Monocyte Absolute 0.72 0.15 - 1.00 x10E9/L 05/17/2024 1:36 PM [facility] Eosinophil Absolute 0.13 0.00 - 0.60 x10E9/L 05/17/2024 1:36 PM [facility] Basophil Absolute 0.05 0.00 - 0.13 x10E9/L 05/17/2024 1:36 PM [facility] Blood BLOOD SPECIMEN / Unknown Venipuncture / Unknown 05/17/2024 1:25 PM RESIDENCE COUNSELOR 05/17/2024 1:30 PM RESIDENCE COUNSELOR Kristi Xie PA-C LAB - HEMATOL OGY ORDERABLES [facility] [address] [place] [address], [facility] [phone] * (ABNORMAL) B-TYPE NATRIURETIC PEPTIDE (05/17/2024 1:25 PM RESIDENCE COUNSELOR) BNP 326(H) <100 pg/mL 05/17/2024 5:22 PM [facility] Comment: A decision threshold of 100 [...] Unknown Venipuncture / Unknown 05/17/2024 1:25 PM RESIDENCE COUNSELOR 05/17/2024 4:35 PM RESIDENCE COUNSELOR Eder Ramsay MD LAB - CHEMISTRY [place] [id number] [place] [id number] [phone] * (ABNORMAL) LIPID PROFILE (02/17/2009 11:48 AM [...] PM CDT Narrative Resulting Agency Comment [facility] [address] [phone] Faviola Mandel MD LAB - CHEMISTRY [facility] [facility] ACCOUNT BILL from Last 3 Months or Most Recently Relevant to Health Maintenance Advance Directives * Full Code (Latest Code Status on File) Date Activated Date Inactivated Comments 05/17/2024 9:51 PM 05/20/2024 3:01 PM Care Teams Md Urologist Relationship Specialty Start Date End Date [facility]artun[facility]isa [facility] [address] [place] [id number] PCP - General 05/25/24
--- OUTSIDE RECORDS SUMMARY | 2024-07-13 07:13 | XMS_ITS | Referral Summary ---
Author Organization [facility] Address [address] [place] [address] Care Team Providers Care Carton Forming Machine Helper Name Role Phone Elisa Harris Primary Care Provider [phone] Source Comments [facility],non-owned Affiliates and Associated Physician Practices is amultiple site organization consisting of ambulatory clinics and hospital sitesin [place], [place], [place] and [place]. This disclosure is being madepursuant to the Care Everywhere program and may not contain all information available regarding this patient. Last updated 18.[facility] Encounters Date Type Department Care Team Description 07/08/2024 Travel 07/08/2024 11:00 AM AUTO BENCH MECHANIC Office Visit [facility] - Cardiology 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) 06/23/2024 Telephone [facility] Pulmonology [address] [place] [address] Flavia Caraballo, RN Follow-up 06/22/2024 Travel 06/22/2024 1:00 PM AUTO BENCH MECHANIC Office Visit [facility] - Rheumatology [address], [place] [address] Abrahan Reynaga MD Scleroderma (HCC) (Primary Dx); Medication monitoring encounter 06/16/2024 Refill [facility] SHORT STAY UNIT [address] [place] [address] Alejandro Whittington MD Refill Request 06/05/2024 Telephone [facility] - Pulmonology [address] [place] [address] Flavia Caraballo, RN Update 05/29/2024 Telephone [facility] - Pulmonology [address], [address] [address] Brandon Hudson MD Order 05/29/2024 Travel 05/29/2024 12:00 PM AUTO BENCH MECHANIC - 05/29/2024 1:25 PM AUTO BENCH MECHANIC Surgery [facility] - Cardiac Fur Weigher [address] [place] [address] Brandon Hudson MD Right Heart Cath 05/29/2024 9:45 AM AUTO BENCH MECHANIC - 05/29/2024 2:17 PM AUTO BENCH MECHANIC Hospital Encounter [facility] AURA OP [address] [place] [address] Brandon Hudson MD Cardiac Catheterization Discharge Disposition: Home or Self Care 05/25/2024 Travel 05/25/2024 9:00 AM AUTO BENCH MECHANIC Office Visit Transitional Care at [address] [phone] Ashley Singh, AMMONIA REFRIGERATION WORKER-[facility] Hospital discharge follow-up (Primary Dx); Pulmonary hypertension (HCC) 05/22/2024 Telephone Transitional Care at [address] [phone] Katya Guadalupe, TAMIKO Reminder Call 05/20/2024 Orders Only [facility] - Pulmonology [address] [place] [address] [place] [address] Brandon Hudson MD 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 (AF LURIA, FLUZONE TRIVALENT; 6MO+) (IIV3) 03/24/2015,03/29/2014 FLU VACCINE QUAD IIV4 SPLIT 0.25 ML IM 7 Social History Tobacco Use Types Packs/Day Years [...] Comments Blood Pressure 120/72 07/08/2024 10:26 AM AUTO BENCH MECHANIC Pulse 84 07/08/2024 10:26 AM AUTO BENCH MECHANIC Temperature 36.7 C (98 F) 06/22/2024 1:09 PM AUTO BENCH MECHANIC Respiratory Rate 22 05/29/2024 1:45 PM AUTO BENCH MECHANIC Oxygen Saturation 92% 06/22/2024 1:09 PM AUTO BENCH MECHANIC Inhaled Oxygen Concentration - - Weight 74.8 kg (165 lb) 07/08/2024 10:26 AM AUTO BENCH MECHANIC Height 162.6 cm (5' 4 ) 07/08/2024 10:26 AM AUTO BENCH MECHANIC Body Mass Index 28.32 07/08/2024 10:26 AM AUTO BENCH MECHANIC Functional Status Functional Status Response Date of Assess ment Is person deaf or have serious hearing difficult y? No 05/29/2024 Is person blind or have serious difficulty seein g? No 05/29/2024 Does person have serious dif ficulty walking/climbing stairs? No 05/29/2024 Does person have difficulty dressing/bathing? No 05/29/2024 Does person have difficulty doing errands alone? No 05/29/2024 Cognitive Status Response Date of Assessm ent Does person have difficulty concentrating/remembering/making decisions? No 05/29/2024 Plan of Treatment Upcoming Encounters Date Type Department Care Team (Late st Contact Info) Description 08/11/2024 11:30 AM CDT Office Visit [facility] - Pulmonology [address] [facility] [place] [address] Brandon Hudson MD [address] [facility] [address] DIV OF PULMONARY/[place] [address] 09/01/2024 1:00 PM CDT Appointment [facility] ECHO [address] [place] [address] Bethanie José MD [address] [facility] [address] DIV OF PULMONARY/[place] [address] 09/01/2024 2:30 PM CDT Appointment [facility] PFT [address] [place] [address] Bethanie José MD [address] [facility] [address] DIV OF PULMONARY/[place] [address] 09/08/2024 3:00 PM CDT Office Visit [facility] - Rheumatology [address] [facility] [place] [phone] Abrahan Reynaga MD [address] [facility] [address] [place] [phone] 01/05/2025 10:30 AM CDT Office Visit [facility] - Cardiology 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) RESPIRATORY PANEL WITH SARS-COV-2 BY PCR (STL) Routine 05/18/2024 5:43 PM AUTO BENCH MECHANIC Dyspnea on exertion CARDIAC EKG ORDER 05/18/2024 1:1 3 PM AUTO BENCH MECHANIC ECHO COMPLETE W CONTRAST ANETA 05/18/2024 11:20 AM AUTO BENCH MECHANIC Dyspnea on exertion Shortness of breath PT EVAL AND TREAT Routine 05/18/2024 1:5 9 AM AUTO BENCH MECHANIC COMPREHENSIVE METABOLIC PANEL Routine 05/18/2024 12:34 AM AUTO BENCH MECHANIC Elevated liver enzymes CT CHEST WO CONTRAST STAT 05/17/2024 4:49 PM AUTO BENCH MECHANIC SOB (shortness of breath) XR CHEST 1VW PORTABLE STAT 05/17/2024 4:15 PM AUTO BENCH MECHANIC SOB (shortness of breath) TROPONIN-I HIGH SENSITIVE REFLEX 1HOUR Timed 05/17/2024 2:57 PM AUTO BENCH MECHANIC EKG 12-LEAD STAT 05/17/2024 1:41 PM AUTO BENCH MECHANIC SOB (shortness of breath) B-TYPE NATRIURETIC PEPTIDE STAT 05/17/2024 1:25 PM AUTO BENCH MECHANIC TROPONIN-I HIGH SENSITIVE BASELINE + 1HR STAT 05/17/2024 1:25 PM AUTO BENCH MECHANIC COMPREHENSIVE METABOLIC PANEL STAT 05/17/2024 1:25 PM AUTO BENCH MECHANIC CBC W AUTO DIFFERENTIAL STAT 05/17/2024 1:25 PM AUTO BENCH MECHANIC LIPID PROFILE Routine 02/17/2009 11:48 AM CDT Htn from Last 3 Months or Most Recently Relevant to Health Maintenance Results * LAB RESULTS ORDER (07/01/2024) Narrative 07/01/2024 Ordered by an unspecified provider. Scanned Document LAB - THERAPEUTIC DR HERNANDEZ MONITORING ORDERABLES * CCL RIGHT HEART CATH (05/29/2024 1:05 PM AUTO BENCH MECHANIC) Anatomical Region Laterality Modality X-Ray Angiograph y Narrative 05/29/2024 4:25 PM AUTO BENCH MECHANIC [facility]. Department of Pulmonary and Critical Care Medicine [...] blood and flushed with saline. A 7 japanese swan-em catheter was advanced through the sheath [...] * RESPIRATORY PANEL WITH SARS-COV-2 BY PCR (STL) (05/18/2024 5:43 PM AUTO BENCH MECHANIC) Adenovirus PCR Not detected Not detected 05/19/2024 12:59 AM AUTO BENCH MECHANIC [facility] Coronavirus 229E PCR Not detected Not detected 05/19/2024 12:59 AM AUTO BENCH MECHANIC [facility] Coronavirus HKU1 PCR Not detected Not detected 05/19/2024 12:59 AM AUTO BENCH MECHANIC [facility] Coronavirus NL63 PCR Not detected Not detected 05/19/2024 12:59 AM AUTO BENCH MECHANIC [facility] Coronavirus OC43 PCR Not detected Not detected 05/19/2024 12:59 AM AUTO BENCH MECHANIC [facility] COVID-19 PCR Not detected Not detected 05/19/2024 12:59 AM AUTO BENCH MECHANIC [facility] Human Metapneumovirus PCR Not detected Not detected 05/19/2024 12:59 AM AUTO BENCH MECHANIC [facility] Human Rhinovirus/Enterov irus PCR Not detected Not detected 05/19/2024 12:59 AM AUTO BENCH MECHANIC [facility] Influenza A PCR Not detected Not detected 05/19/2024 12:59 AM AUTO BENCH MECHANIC [facility] Influenza B PCR Not detected Not detected 05/19/2024 12:59 AM AUTO BENCH MECHANIC [facility] Parainfluenza Virus 1 PCR Not detected Not detected 05/19/2024 12:59 AM AUTO BENCH MECHANIC [facility] Parainfluenza Virus 2 PCR Not detected Not detected 05/19/2024 12:59 AM AUTO BENCH MECHANIC [facility] Parainfluenza Virus 3 PCR Not detected Not detected 05/19/2024 12:59 AM AUTO BENCH MECHANIC [facility] Parainfluenza Virus 4 PCR Not detected Not detected 05/19/2024 12:59 AM AUTO BENCH MECHANIC [facility] Respiratory Syncytial Virus PCR Not detected Not detected 05/19/2024 12:59 AM AUTO BENCH MECHANIC [facility] Bordetella parapertussis PCR Not detected Not detected 05/19/2024 12:59 AM AUTO BENCH MECHANIC [facility] Bordetella pertussis PCR Not detected Not detected 05/19/2024 12:59 AM AUTO BENCH MECHANIC [facility] Chlamydia pneumoniae PCR Not detected Not detected 05/19/2024 12:59 AM AUTO BENCH MECHANIC [facility] Mycoplasma pneumoniae PCR Not detected Not detected 05/19/2024 12:59 AM AUTO BENCH MECHANIC [facility] Microbiology SPECIMEN FROM NASOPHARYNGEAL STRUCTURE / Unknown Collection / Unknown 05/18/2024 5:43 PM AUTO BENCH MECHANIC 05/18/2024 6:00 PM AUTO BENCH MECHANIC Narrative [facility] - 05/19/2024 12:59 AM AUTO BENCH MECHANIC This nucleic amplification assay has received FDA authorization via the [employer] Pathway. Mary Beth Carr MD LAB - MICROBIOLOGY O RDERABLES [facility] [address] [place] [address], [facility] [phone] * CARDIAC EKG ORDER (05/18/2024 1:13 PM AUTO BENCH MECHANIC) Narrative 05/18/2024 1:13 PM AUTO BENCH MECHANIC Ordered by an unspecified provider. Scanned Document CARDIAC SERVICES ORD ERABLES * ECHO COMPLETE W CONTRAST (05/18/2024 11:20 AM AUTO BENCH MECHANIC) LA vol index 0.017 l/m [facility] CV [...] Laterality Modality Ultrasound 05/18/2024 10:3 5 AM AUTO BENCH MECHANIC Narrative 05/18/2024 2:39 PM AUTO BENCH MECHANIC Summary * The left ventricle is normal [...] 10:35 AM Patient Status: OPO Study Site: [facility] Primary Location: [facility] EStudy Info Technical Quality: Adequate Exam Type: [...] Provider: Michael Howard Attending Physician: Michael Howard Commercial Correspondent: Cesar Díaz Left Ventricle The left ventricle [...] 10:35 AM Patient Status: OPO Study Site: [facility] Primary Location: [facility] Info Technical Quality: Adequate Exam Type: ECHO [...] Provider: Michael Howard Attending Physician: Michael Howard Commercial Correspondent: Cesar Díaz Left Ventricle The left ventricle [...] (ABNORMAL) COMPREHENSIVE METABOLIC PANEL (05/18/2024 12:34 AM AUTO BENCH MECHANIC) Only the most recent of2 resultswithin the time period is included. BUN 19 7 - 26 mg/dL 05/18/2024 1:45 AM [facility] Creatinine 1.28(H) 0.56 - 0.96 mg/dL 05/18/2024 1:45 AM [facility] Sodium 139 136 - 145 mmol/L 05/18/2024 1:45 AM [facility] Potassium 4.5 3.5 - 4.5 mmol/L 05/18/2024 1:45 AM [facility] Chloride 111(H) 98 - 107 mmol/L 05/18/2024 1:45 AM [facility] CO2 20(L) 22 - 29 mmol/L 05/18/2024 1:45 AM [facility] Glucose 164(H) 70 - 99 mg/dL 05/18/2024 1:45 AM [facility] Calcium 8.9 8.4 - 10.2 mg/dL 05/18/2024 1:45 AM [facility] Protein Total 6.0 6.0 - 8.3 g/dL 05/18/2024 1:45 AM [facility] Albumin 3.3(L) 3.4 - 5.0 g/dL 05/18/2024 1:45 AM [facility] Bilirubin Total 0.5 0.2 - 1.2 mg/dL 05/18/2024 1:45 AM [facility] Alkaline Phosphatase 61 40 - 150 U/L 05/18/2024 1:45 AM [facility] ALT 82(H) 5 - 55 U/L 05/18/2024 1:45 AM [facility] AST 26 5 - 34 U/L 05/18/2024 1:45 AM [facility] Anion Gap 8 6 - 16 05/18/2024 1:45 AM [facility] BUN/Creatinine Ratio 15 7 - 23 05/18/2024 1:45 AM [facility] Osmolality Calculated 294 275 - 295 mOsm/kg 05/18/2024 1:45 AM [facility] Albumin/Globulin Ratio 1.2 1.1 - 2.3 05/18/2024 1:45 AM [facility] eGFR by CKD-EPI 48(L) >=90 mL/min/1.7 3 m2 05/18/2024 1:45 AM [facility] Blood BLOOD SPECIMEN / Unknown Lab Venipuncture / Unknown 05/18/2024 12:34 AM [facility] 05/18/2024 1:17 AM AUTO BENCH MECHANIC Michael Howard MD LAB - CHEMISTRY TEODORO PRINCE [facility] [place] [address], [facility] [phone] * CT Chest Wo Contrast (05/17/2024 4:49 PM AUTO BENCH MECHANIC) Anatomical Region Laterality Modality Chest Computed Tomogra phy 05/17/2024 5:47 PM AUTO BENCH MECHANIC Impressions 05/17/2024 10:21 PM AUTO BENCH MECHANIC Impression 1. Small pericardial effusion measuring up to 12 mm. 2. Dilated and fluid-filled esophagus suggestive of passive esophageal reflux. Report dictated by Jonnie Guido MD(residential solar sales consultant). I, Zachery Tello MD have personally reviewed and interpreted this examination/study. > Interpreting Provider: Zachery Tello MD on 05/17/2024 10:21 PM Narrative 05/17/2024 10:21 PM AUTO BENCH MECHANIC PROCEDURE: CT CHEST WO CONTRAST, DATE/TIME OF EXAM: 05/17/2024 4:50 PM, LOCATION [facility] INDICATION: R06.02: SOB (shortness of breath) ADDITIONAL [...] CONTRAST, DATE/TIME OF EXAM: 05/17/2024 4:50PM, LOCATION [facility] INDICATION: R06.02: SOB (shortness of breath) ADDITIONAL [...] esophageal reflux. Report dictated by Jonnie Guido MD(residential solar sales consultant). I, Zachery Tello MD have personally reviewed and interpreted this examination/study. > Interpreting Provider: Zachery Tello MD on 05/17/2024 10:21 PM Eder [address]ay MD [address] ORDERABLES * XR Chest 1Vw Portable (05/17/2024 4:15 PM AUTO BENCH MECHANIC) Anatomical Region Laterality Modality Chest Digital Radiogra phy 05/17/2024 4:12 PM AUTO BENCH MECHANIC Narrative 05/18/2024 6:20 AM AUTO BENCH MECHANIC PROCEDURE: XR CHEST 1VW PORTABLE, DATE/TIME OF EXAM: 05/17/2024 2:15 PM, LOCATION [facility] INDICATION: R06.02: SOB (shortness of breath) ADDITIONAL [...] normal. Report dictated by Radhames Apple MD, (Tool Setter). Sheridan Benjamin MD have personally reviewed and interpreted this examination/study. > Interpreting Provider: Sheridan Abbasi MD on 05/18/2024 6:20 AM Procedure Note Sheridan Abbasi MD - 05/18/2024 PROCEDURE: XR CHEST 1VW PORTABLE, DATE/TIME OF EXAM: 05/17/2024 2:15PM, LOCATION [facility] INDICATION: R06.02: SOB (shortness of breath) ADDITIONAL [...] normal. Report dictated by Radhames Apple MD, (Tool Setter). Sheridan Benjamin MD have personally reviewed and interpreted this examination/study. > Interpreting Provider: Sheridan Abbasi MD on 05/18/2024 6:20 AM Kristi Xie PA-C DIAGNOSTIC IM AGING ORDERABLES * TROPONIN-I HIGH SENSITIVE REFLEX 1HOUR (05/17/2024 2:57 PM AUTO BENCH MECHANIC) [facility] Troponin I High Sensitive 7 <=14 ng/L 05/17/2024 3:59 PM AUTO BENCH MECHANIC [facility] Delta Troponin I HS 05/17/2024 3:59 PM AUTO BENCH MECHANIC [facility] Comment:Delta value intentio nazario not calculated. Baseline to 1 hour specimen collection interval exceeded. Blood BLOOD SPECIMEN / Unknown Venipuncture / Unknown 05/17/2024 2:57 PM AUTO BENCH MECHANIC 05/17/2024 3:25 PM AUTO BENCH MECHANIC Kristi Xie PA-C LAB - PROFESSOR OF BUSINESS ADMINISTRATION RY ORDERABLES Performing Organization Address City/[facility]/ZIP Co de Phone Number [facility] [address] [place] [address], [facility] [phone] * EKG 12-LEAD (05/17/2024 1:41 PM AUTO BENCH MECHANIC) [facility] Ventricular Rate 67 BPM [facility] MUSE Atrial Rate 67 BPM [facility] MUSE P-R Interval 158 ms [facility] MUSE QRS Duration ms 68 ms [facility] MUSE Q-T Interval ms 438 ms [facility] MUSE QTC Calculation (Bezet) 462 ms [facility] MUSE Calculated P [place] 51 degrees [facility] MUSE Calculated R [place] 102 degrees [facility] MUSE Calculated T [place] 56 degrees [facility] Interpretation EKG NORMAL SINUS RHYTHM RIGHTWARD AXIS T WAVE ABNORMALITY, CONSIDER ANTERIOR ISCHEMIA PROLONGED QT ABNORMAL ECG NO PREVIOUS ECGS AVAILABLE Confirmed by IVY PETERSON MD ([id number]) on 05/18/2024 10:49:39 PM [facility] MUSE 05/17/2024 1:41 PM AUTO BENCH MECHANIC 05/18/2024 10:49 PM AUTO BENCH MECHANIC Kristi Xie PA-C ECG ORDERABLE S [facility] MUSE * TROPONIN-I HIGH SENSITIVE BASELINE + 1HR (05/17/2024 1:25 PM AUTO BENCH MECHANIC) [facility] Troponin I High Sensitive 7 <=14 ng/L 05/17/2024 2:04 PM AUTO BENCH MECHANIC [facility] Blood BLOOD SPECIMEN / Unknown Venipuncture / Unknown 05/17/2024 1:25 PM AUTO BENCH MECHANIC 05/17/2024 1:30 PM AUTO BENCH MECHANIC Kristi Xie PA-C LAB - PROFESSOR OF BUSINESS ADMINISTRATION RY ORDERABLES [facility] [address] [place] [address], [facility] [phone] * (ABNORMAL) CBC W AUTO DIFFERENTIAL (05/17/2024 1:25 PM AUTO BENCH MECHANIC) WBC 7.0 4.0 - 10.7 x10E9/L 05/17/2024 1:36 PM [facility] RBC Count 5.06 3.90 - 5.20 x10E12/L 05/17/2024 1:36 PM [facility] Hemoglobin 14.3 11.9 - 15.8 g/dL 05/17/2024 1:36 PM [facility] Hematocrit 43.8 34.8 - 46.1 % 05/17/2024 1:36 PM [facility] MCV 86.6 80.0 - 98.0 fL 05/17/2024 1:36 PM [facility] MCH 28.3 26.7 - 33.6 pg 05/17/2024 1:36 PM [facility] MCHC 32.6 31.7 - 36.3 g/dL 05/17/2024 1:36 PM [facility] RDW-CV 14.2 11.3 - 14.8 % 05/17/2024 1:36 PM [facility] Platelet Count 174 150 - 420 x10E9/L 05/17/2024 1:36 PM [facility] MPV 11.7(H) 7.8 - 11.4 fL 05/17/2024 1:36 PM [facility] Neutrophil % 65.4 41.0 - 74.0 % 05/17/2024 1:36 PM [facility] Lymphocyte % 21.6 17.0 - 47.0 % 05/17/2024 1:36 PM [facility] Monocyte % 10.2 3.0 - 11.0 % 05/17/2024 1:36 PM [facility] Eosinophil % 1.8 0.0 - 7.0 % 05/17/2024 1:36 PM [facility] Basophil % 0.7 0.0 - 1.6 % 05/17/2024 1:36 PM [facility] Immature Granulocytes % 0.3 0.0 - 1.0 % 05/17/2024 1:36 PM [facility] Neutrophil Absolute 4.60 1.60 - 7.50 x10E9/L 05/17/2024 1:36 PM [facility] Lymphocyte Absolute 1.52 1.00 - 4.40 x10E9/L 05/17/2024 1:36 PM [facility] Monocyte Absolute 0.72 0.15 - 1.00 x10E9/L 05/17/2024 1:36 PM [facility] Eosinophil Absolute 0.13 0.00 - 0.60 x10E9/L 05/17/2024 1:36 PM [facility] Basophil Absolute 0.05 0.00 - 0.13 x10E9/L 05/17/2024 1:36 PM [facility] Blood BLOOD SPECIMEN / Unknown Venipuncture / Unknown 05/17/2024 1:25 PM AUTO BENCH MECHANIC 05/17/2024 1:30 PM [facility] Kristi Xie PA-C LAB - HEMATOL OGY ORDERABLES Performing Organization Address City/State/[facility] Co de Phone Number [facility] [address] [place] [phone] [phone] * (ABNORMAL) B-TYPE NATRIURETIC PEPTIDE (05/17/2024 1:25 PM AUTO BENCH MECHANIC) BNP 326(H) <100 pg/mL 05/17/2024 5:22 PM [facility] Comment: A decision threshold of 100 [...] Unknown Venipuncture / Unknown 05/17/2024 1:25 PM AUTO BENCH MECHANIC 05/17/2024 4:35 PM AUTO BENCH MECHANIC Eder Ramsay MD LAB - CHEMISTRY [facility] [place] [id number], [facility] [phone] * (ABNORMAL) LIPID PROFILE (02/17/2009 11:48 AM [...] PM CDT Narrative Resulting Agency Comment [facility] [address] [phone] Faviola Mandel MD LAB - CHEMISTRY TE[facility]O PRINCE [facility] ACCOUNT BILL from Last 3 Months or Most Recently Relevant to Health Maintenance Advance Directives * Full Code (Latest Code Status on File) Date Activated Date Inactivated Comments 05/17/2024 9:51 PM 05/20/2024 3:01 PM Care Teams Carton Forming Machine Helper Relationship Specialty Start Date End Date Elisa Harris [address] [place] [phone] PCP - General 05/25/24
--- OUTSIDE RECORDS SUMMARY | 2024-07-13 07:14 | XMS_ITS | Data Portability ---
Author Organization [place] - [facility] [employer], Main Office Address [address] [place] [address] Care Team Providers Care Healthcare Management Name Role Phone KARLA SIDDIQUI Primary Care Provider Assessment Encounter Date Assessment Date Assessment LastModified by Organization Details LastModified Time 01/25/2023 01/25/2023 Colonoscopy utd per patient on 01/25/23 Reminded pt to get ophthamology exam Not available 01/25/2023 12:01:03 10/03/2023 10/03/2023 Continue FU with derm Continue FU with rheum Continue FU with cardio Flu shot: 03/2023 COVID vaccines: 06/2020, 2020, 2021 TDap: 2021 Shingles: declines Mammogram: ordered today WWE: unknown, will schedule Colonoscopy: 2021, recommended 5 year follow up with Dr. Richy meza Not available 10/03/2023 11:10:02 05/22/2024 05/22/2024 I have reconciled the patient's medications post their discharge from inpatient facility. derrick Not available 05/22/2024 10:19:16 Plan of Treatment Reminders Order Date Submit Date Provider Last Modified By Organization Details Last Modified Time Details Appointments None recorded. Lab lipid panel, serum [address] (Lab), [address] [place] [address], [id number], 08:36:21 TSH, serum or plasma [address] (Lab), [address] [place] [address], [phone], 3 08:36:21 HbA1c (hemoglobin A1c), blood [address] (Lab), [address] [place] [address], [id number], 4 08:43:30 lipid panel, serum [address] (Lab), [address] [place] [address], [id number], 4 08:43:30 TSH, serum or plasma [address] (Lab), [address] [place] [address], [id number], 4 08:43:30 Referral None recorded. Procedures None recorded. Surgeries None recorded. Imaging MAMMO, screening, bilateral [address] [facility], [address], [place], [address], 3 08:42:55 MAMMO, screening, digital, bilateral [address] [facility], [address], [place], [address], 4 09:19:09 Medication Orders Belsomra 10 mg tablet [address] [facility], [address] [place], [place], [id number], 4 10:32:01 nifedipine ER 60 mg tablet,exte nded release 24 hr 2023 024 [facility] #72783, [address] [place], [place], [id number], 4 11:03:32 Farxiga 10 mg tablet 2023 024 [facility] #69089, [address] [facility], [place], [place], [id number], 4 10:09:23 amoxicillin 875 mg-potmicheleiu m clavulanate 125 mg tablet 2023 024 [facility] #36367, [address] [facility], [place], [place], [id number], 5 11:37:50 Patient TargetsNo targets recorded. Patient Instructions Encounter Date Encounter Id Patient Instructions Last Modified By Organization Details Last Modified Time 01/25/2023 [id number] INFLUENZA VACCIN E TD/TDAP PNEUMONIA VACCINE Ordered Recommend ed today, patient declined Patient will get at local pharmacy/health department Recomm ended at age 64 SHINGLES Ordered Recommend ed today, patient declined MAMMOGRAM: Last Mammogram __ Recommended today, but patient declined Ordered DEXA SCAN No screening necessary patient is up to date CERVICAL SCREENING/PELVIC EXAMINATION COLORECTAL SCREENING: Last Colonoscopy DEPRESSION SCREENING BMI NUTRITION PHYSICAL ACTIVITY VISION ALCOHOL USE TOBACCO USE LUNG CANCER SCREENING SEXUALLY ACTIVE HEPATITIS C SCREENING GLUCOSE SCREENING Ordered LIPID SCREENING Ordered Not available 01/25/2023 12:05:14 FU in 1 year for wellness after 01/27/24 Not available 01/25/2023 12:06:57 05/22/2024 [id number] Thank you for your visit to our office today. We would like to request that you reach out to your referring or previous provider and request that they send us a Summary of Care in electronic form, so that we may have it on file in your medical record. At your visit, we had the medical records we needed to provide you with the best possible care; however, for insurance purposes, an electronic Summary of Care is beneficial. Thank you for your assistance in obtaining this information and we look forward to providing continued care to you. Please review your medication list from the Summary of Care for this visit. If there are any differences from what you are currently taking at home, please call us to discuss. [email or web address] Not available 05/22/2024 10:19:16 Homebound Status : {{Patient has an inability to leave the home without a taxing effort and assistance from another person Does not meet homebound status*}} Required Home Health Services: {{none* usp, physical therapy, occupational therapy usp, physical therapy usp}} Durable Medical Equipment needed: {{cane walker wal ker with seat manual wheelchair bedsid e commode oxygen}} Billing Guidelines CPT code 85194- Transitional Care Management services with moderate medical decision complexity ([id number]-mv-[id number] visit within 14 days of discharge). CPT code 75861- Transitional Care Management services with high medical decision complexity (uelz-tk-bnjt visit within 7 days of discharge). [email or web address] Not available 05/22/2024 10:24:37 Reason for Referral None Reported. Results Created Date Observation Date Name Description Value Unit Range Abnormal Flag Note LastModifiedBy Organization Detail LastModifiedTime Result Notes None recorded. Problems Name Problem SNOMED Code Status Onset Date Resolution Date Notes Provider Name and Address Organization Details Recorded Time Infection of skin 053280659 Active Not Available [facility] 3 08:49:24 Tobacco user 987109446 Active 2017 Not Available [facility] 3 08:49:24 Acute sinusitis 71083056 Active Not Available [facility] 3 08:49:25 Insomnia 345530797 Active 2021 Not Available [facility] 3 08:49:25 Raynaud's disease 836638167 Active 2020 Not Available [facility] 3 08:49:25 Finger ulcer 677844428 Active 2020 Not Available [facility] 3 08:49:25 Bronchitis 27013806 Active Not Available [facility] 3 08:49:25 Depressive disorder 05403704 Active Not Available [facility] 3 08:49:25 Hypertensive disorder 93100010 Active Not Available [facility] 3 08:49:25 Posterior rhinorrhea 91730265 Active Not Available [facility] 3 08:49:25 Smoker 38890537 Active 2019 Not Available [facility] 3 08:49:25 Chronic kidney disease stage 3 102157218 Active 2022 Belinda Fields NP [address], [address], [place], [address] , [place] [facility] 3 21:12:50 Hyperlipidemi a 77487629 Active 2022 Belinda Fields NP [address], [address], [place], [address] , [place] [facility] 3 11:55:36 Essential hypertension 24620742 Active 2023 EVELYN Blake [address], [address], [place], [address] , [place] [facility] 4 14:43:21 Nocturia 065008827 Active 2023 EVELYN Blake [address], [address], [place], [address] , [place] [facility] 4 11:02:14 Fatigue 52050421 Active 2023 EVELYN Blake [address], [address], [place], [address] , [place] [facility] 4 11:03:01 Acute bacterial sinusitis 04266447 Active 2023 EVELYN Blake [address], [address], [place], [address] , [place] [facility] 4 10:23:17 Scleroderma Active 2024 EVELYN Blake [address], [address], [place], [address] , [place] [facility] 5 12:20:17 Pulmonary edema 62315990 Active 2024 EV[address]kae [address], [address], [place], [address] , [place] [facility] 12:20:24 Notes:Some problems listed i n Document: #[id number] could not be added to this patient's chart. Please review this document and add these problems to the patient's chart manually as needed. Problem Notes None recorded. Procedures Surgical History Date Name Laterality Status Provider Name and Address Organization Details Recorded Time 05/22/20 24 Transitional_Care _Management completed [place] EVELYN Siddiqui [address] [facility], [address], [place], [address], [place] [employer] 05/22/2024 10:34:16 05/08/20 21 Colonoscopy completed Not Available [facility] 08/02/19 08:44:56 colonoscopy completed Not Available [facility] 08/01/2022 08:44:56 Kidney/Bladder Surgery completed Not Available [facility] 08/01/2022 08:44:56 Tonsillectomy completed Not Available [facility] 08/01/2022 08:44:56 partial resection of colon completed Not Available [facility] 08/01/2022 08:44:56 Imaging Results None recorded. Procedure Notes None recorded. Medical Equipment None Reported. Allergies No known drug allergies Medications Name Sig Start Date Stop Date Status Note LastModified by Organization Details LastModified Time nifedipine ER 30 mg tablet,ext ended release 24 hr TAKE 1 TABLET BY MOUTH EVERY DAY 05/22 completed Not Available Not Available Not Available amoxicilli n 500 mg capsule Take 1 capsule every 8 hours by oral route for 7 days. active Not Available Not Available No t Available prednisone 10 mg tablet Take 1 tablet every day by oral route as directed for 7 days. active Not Available Not Available No t Available ipratropiu m 0.5 mg-albuter ol 3 mg (2.5 mg base)/3 mL nebulizati on soln Inhale 3 mL every day by nebuliza tion route for 1 day. 01/20 completed Not Available Not Available Not Available citalopram 40 mg tablet TAKE 1 TABLET BY MOUTH EVERY DAY active Not Available Not Available No t Available azithromyc in 250 mg tablet TAKE 2 TABLETS (500 MG) BY ORAL ROUTE ONCE DAILY FOR 1 DAY THEN 1 TABLET (250 MG) BY ORAL ROUTE ONCE DAILY FOR 4 DAYS active Not Available Not Available No t Available benzonatat e 200 mg capsule Take 1 capsule every 8 hours by oral route as needed for 7 days. active Not Available Not Available No t Available hydrocodon e 5 mg-acetami nophen 325 mg tablet TAKE 1 TABLET BY MOUTH EVERY 6 HOURS FOR 5 DAYS NEEDED active Not Available Not Available No t Available meloxicam 15 mg tablet TK 1 T PO D 01/20 completed Not Available Not Available Not Available prednisone 20 mg tablet Take 1 tablet every day by oral route for 7 days. active Not Available Not Available No t Available atenolol 25 mg tablet TAKE 1 TABLET BY MOUTH DAILY active Not Available Not Available No t Available clobetasol 0.05 % topical cream APPLY TOPICALL Y TO THE AFFECTED AREA TWICE DAILY AT ONSET OF FLARES 09/25 completed Not Available Not Available Not Available torsemide 10 mg tablet TAKE 1 TABLET BY MOUTH DAILY 07/03 completed Not Available Not Available Not Available sulfametho xazole 800 mg-trimeth oprim 160 mg tablet TAKE 1 TABLET BY MOUTH EVERY 12 HOURS FOR 7 DAYS 01/23 completed Not Available Not Available Not Available peg-electr olyte solution 420 gram oral solution 11/29 completed Not Available Not Available Not Available tramadol 50 mg tablet Take 1 tablet every 6 hours by oral route. active Not Available Not Available No t Available mycophenol ate mofetil 500 mg tablet TAKE 1 TABLET BY MOUTH TWICE DAILY 05/22 completed Not Available Not Available Not Available amoxicilli n 875 mg tablet TK 1 T PO Q 12 H 08/23 completed Not Available Not Available Not Available citalopram 20 mg tablet TAKE 1 TABLET BY MOUTH DAILY 09/25 completed Not Available Not Available Not Available omeprazole 10 mg capsule,de layed release Take 1 capsule every day by oral route as directed . 2014 active Not Available Not Available Not Avai lable nifedipine ER 60 mg tablet,ext ended release 24 hr TAKE 1 TABLET BY MOUTH EVERY DAY DIRECTED active Not Available Not Available No t Available benzonatat e 100 mg capsule Take 2 capsules 3 times a day by oral route as needed. active Not Available Not Available No t Available torsemide 5 mg tablet TAKE 1 TABLET BY MOUTH DAILY active Not Available Not Available No t Available oseltamivi r 75 mg capsule TK 1 C PO BID FOR 5 DAYS 01/20 completed Not Available Not Available Not Available metronidaz ole 0.75 % topical cream APPLY TOPICALL Y TO THE AFFECTED AREA OF FACE TWICE DAILY UNTIL IMPROVED 05/22 completed Not Available Not Available Not Available omeprazole 20 mg capsule,de layed release Take 1 capsule every day by oral route. 01/20 completed Not Available Not Available Not Available metoprolol succinate ER 25 mg tablet,ext ended release 24 hr TAKE 1 TABLET BY MOUTH EVERY DAY active Not Available Not Available No t Available methylpred nisolone 4 mg tablets in a dose pack FOLLOW PACKAGE DIRECTIO NS 09/05 completed Not Available Not Available Not Available albuterol sulfate HFA 90 mcg/actuat ion aerosol inhaler INHALE 2 PUFFS BY MOUTH EVERY 4 HOURS NEEDED FOR SHORTNES S OF BREATH active Not Available Not Available No t Available gentamicin 0.1 % topical ointment APPLY TOPICALL Y TO SKIN LESION TWICE DAILY 09/25 completed Not Available Not Available Not Available amoxicilli n 875 mg-potassi um clavulanat e 125 mg tablet Take 1 tablet twice a day by oral route as directed for 7 days. 07/03 completed Not Available Not Available Not Available rosuvastat in 5 mg tablet Take 1 tablet every day by oral route. 10/02 completed Not Available Not Available Not Available Dakin's Solution 0.25 % USE TOPICALL Y TO FINGER TWICE DAILY FOR 7 DAYS 01/25 completed Not Available Not Available Not Available eszopiclon e 2 mg tablet Take 1 tablet every day by oral route. 01/25 completed Not Available Not Available Not Available zolpidem ER 6.25 mg tablet,ext ended release,mu ltiphase TAKE 1 TABLET BY MOUTH EVERY DAY 03/23 completed got shakes the next day after taking. Not Available Not Available Not Available GaviLyte-G 236 gram-22.74 gram-6.74 gram-5.86 gram oral solution 11/29 completed Not Available Not Available Not Available Suprep Bowel Prep Kit 17.5 gram-3.13 gram-1.6 gram oral solution MIX AND DRINK UTD 08/05 completed Not Available Not Available Not Available Opsumit 10 mg tablet active Not Available Not Available No t Available Farxiga 10 mg tablet TAKE 1 TABLET BY MOUTH EVERY DAY DIRECTED 05/22 completed Not Available Not Available Not Available Belsomra 10 mg tablet TAKE 1 TABLET BY MOUTH EVERY DAY AT BEDTIME 10/02 completed Not Available Not Available Not Available tadalafil 20 mg tablet (pulmonary hypertensi on) active Not Available Not Available Not Available Menthozen Hydrogel 0.03 %-4 % topical patch Apply 1 patch every day by topical route. 01/25 completed Not Available Not Available Not Available Paxlovid 300 mg (150 mg x 2)-100 mg tablets in a dose pack Take 1 dose pk twice a day by oral route for 5 days. 01/25 completed Not Available Not Available Not Available Vitals Date Recorded Body mass index (BMI) Body height Oxygen saturation Oxygen saturation in Arterial blood by Pulse oximetry Heart rate Respiratory rate Body temperature Body weight Systolic blood pressure Diastolic blood pressure Provider Name and Address Organization Details Last Updated DateTime 3 28.3 kg/m2 162.56 cm 99 % 99 % 61 /min 16 /min 98.1 [degF] 07746.7 4 g 132 mm[Hg] 86 mm[Hg] Not Available [facility] 3 08:48:27 Date Recorded Body height Body mass index (BMI) Body weight Body temperature Heart rate Oxygen saturation Oxygen saturation in Arterial blood by Pulse oximetry Pain severity - 0-10 verbal numeric rating [Score] - Reported Systolic blood pressure Diastolic blood pressure Provider Name and Address Organization Details Last Updated DateTime 3 160.02 cm 29.3 kg/m2 88940.8 9 g 97.9 [degF] 72 /min 97 % 97 % 0 133 mm[Hg] 83 mm[Hg] Diamante White [place] [employer] [facility] 3 11:32:30 Date Recorded Body height Body mass index (BMI) Body weight Body temperature Heart rate Respiratory rate Oxygen saturation Oxygen saturation in Arterial blood by Pulse oximetry Pain severity - 0-10 verbal numeric rating [Score] - Reported Systolic blood pressure Diastolic blood pressure Provider Name and Address Organization Details Last Updated DateTime 4 160.02 cm 31.8 kg/m2 35141.4 3 g 96.5 [degF] 71 /min 20 /min 98 % 98 % 0 148 mm[Hg] 84 mm[Hg] Belinda Patel RN [facility] [employer] [facility] 4 10:34:51 Date Recorded Body height Body mass index (BMI) Body weight Body temperature Respiratory rate Heart rate Oxygen saturation Oxygen saturation in Arterial blood by Pulse oximetry Pain severity - 0-10 verbal numeric rating [Score] - Reported Systolic blood pressure Diastolic blood pressure Provider Name and Address Organization Details Last Updated DateTime 4 160.02 cm 29.1 kg/m2 96428.9 5 g 97.3 [degF] 24 /min 77 /min 99 % 99 % 0 140 mm[Hg] 88 mm[Hg] Belinda Patel RN [facility] [employer] [facility] 4 10:12:21 Date Recorded Body height Body temperature Heart rate Respiratory rate Oxygen saturation Oxygen saturation in Arterial blood by Pulse oximetry Pain severity - 0-10 verbal numeric rating [Score] - Reported Systolic blood pressure Diastolic blood pressure Provider Name and Address Organization Details Last Updated DateTime 5 160.02 cm 98.1 [degF] 45 /min 20 /min 97 % 97 % 0 128 mm[Hg] 80 mm[Hg] Belinda Patel RN [facility] [employer] [facility] 5 11:41:32 Social History Question Answer Notes LastModified by Organization Details LastModified Time Tobacco Smoking Status Former Smoker Not Available [facility] 08/01/2022 08:44:50 Do You Have An Advance Directive? No Information not available 10/03/2023 What Is Your Level Of Alcohol Consumption? Moderate Weekends [id number].[id number] Information not available 08/01/2022 Is Blood Transfusion Acceptable In An Emergency? Yes Information not available 10/03/2023 What Is Your Level Of Caffeine Consumption? Heavy Information not available 10/03/2023 How Much Tobacco Do You Chew? None MIGRATION.0301 [id number] Information not available 08/01/2022 What Is Your Code Status? Full Code Information not available 10/03/2023 In The 14 Days Before Symptom Onset, Have You Had Close Contact With A Laboratory-[facility] COVID-19 While That Case Was Ill? No MIGRATION.0301 [id number] Information not available 08/01/2022 In The 14 Days Before Symptom Onset, Have You Had Close Contact With A Person Who Is Under Investigation For COVID-19 While That Person Was Ill? No MIGRATION.0301 [id number] Information not available 08/01/2022 Are You Currently Employed? Yes Information not available 10/03/2023 What Type Of Diet Are You Following? REGULAR MIGRATION.0301 [id number] Information not available 08/01/2022 Do You Or Have You Ever Used E-cigarettes Or Vape? 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 No MIGRATION.0301 [id number] Information not available 08/01/2022 Do You Use Insect Repellent Routinely? Yes MIGRATION.0301 [id number] Information not available 08/01/2022 Where Do You Live? SingleLevelHouse Information not available 10/03/2023 Do You Have A Medical Power Of [employer] [place]? No Information not available 10/03/2023 How Many Children Do You Have? 3 Information not available 10/03/2023 Do You Have Any Pets? Yes MIGRATION.0301 [id number] Information not available 08/01/2022 What Is Your Relationship Status? MIGRATION.0301 [id number] Information not available 08/01/2022 Do You Use Your Seat Belt Or Car Seat Routinely? Yes MIGRATION.0301 [id number] Information not available 08/01/2022 Do You Have Smoke And Carbon Monoxide Detectors In Your Home? Yes MIGRATION.0301 332156 Information not available 08/01/2022 Do You Or Have You Ever Used Smokeless Tobacco? Never Used Smokeless Tobacco MIGRATION.0301 050194 Information not available 08/01/2022 Are There Any Smokers In Your House? Yes MIGRATION.0301 040787 Information not available 08/01/2022 How Much Tobacco Do You Smoke? 0.25 PPD Information not available 10/03/2023 Do You Participate In Social Media? Yes MIGRATION.0301 [id number] Information not available 08/01/2022 Do You Feel Stressed (tense, Restless, Nervous, Or Anxious, Or Unable To Sleep At Night)? [id number] Information not available 10/03/2023 Do You Use Sunscreen Routinely? Yes MIGRATION.[id number] Information not available 08/01/2022 Has Tobacco Cessation Counseling Been Provided? No MIGRATION.[id number] Information not available 08/01/2022 Have You Recently Traveled Abroad? No MIGRATION.030200273 Information not available 08/01/2022 Do You Have Any Dietary Restrictions? No MIGRATION.[id number] Information not available 08/01/2022 Do You Or Have You Ever Used Any Other Forms Of Tobacco Or Nicotine? No MIGRATION.[id number] Information not available 08/01/2022 Sex: Unknown Functional Status Question Answer Note LastModified by Organization D etails LastModified Time What is your exercise level? None Information not available 10/03/2023 Mental Status None recorded. Family History Relationship Description Onset Age of this Age Resolved Age Notes LastModified by Organization Details LastModified Time Mother Malignant tumor of lung for the third time. [id number] Not available 08/01/2022 08:45:00 Medical History Condition Response HEART DISEASE/HEART PROBLEMS Y OTHER # 1 HYPERTENSION Y ANXIETY DISORDER Y ASTHMA Y DEPRESSION (INCLUDING POST ) Y Gynecological History Statement/Question Response If Post Menopausal, Age at Menopause 44 Date of Last Mammogram 10/12/2020 Date of Last Pap Smear Date of Last Colonoscopy Most Recent Mammogram Most Recent Bone Density Obstetrics History GPAL:G 0 P 0 0 0 0 Immunizations Vaccine Type Date Status Note Provider Nam e and Address Organization Details Recorded Time SARS-COV-2 (COVID-19) vaccine, UNSPECIFIED 1 completed Not Available [facility] 08/01/2022 08:53:58 Influenza, split virus, quadrivalent, preservative 7 completed Not Available [facility] 08/01/2022 08:53:58 Influenza, split virus, trivalent, preservative 5 completed Not Available [facility] 08/01/2022 08:53:58 Influenza, split virus, trivalent, preservative 4 completed Not Available [facility] 08/01/2022 08:53:58 Past Encounters Encounter ID Performer Location Encounter Start Date Encounter Closed Date Diagnosis/Indication Diagnosis SNOMED-CT Code Diagnosis ICD10 Code Diagnosis Note [id number] [facility] [address] [place] [address] 08/23/2020 00:00:00 08/23/2020 11:10:04 [id number] [facility] [address] [place] [address] 01/03/2021 00:00:00 01/03/2021 12:48:44 [id number] [facility] [address] [place] [address] 02/09/2021 00:00:00 02/09/2021 11:56:14 [id number] [facility] [address] [place] [address] 03/23/2021 00:00:00 03/23/2021 13:02:22 [id number] [facility] [address] [place] [address] 08/02/2021 00:00:00 08/02/2021 15:46:36 [id number] [facility] [address] [place] [address] 01/23/2022 00:00:00 01/23/2022 12:26:52 [id number] Belinda Fields NP [facility] [address] 01/25/2023 11:18:21 01/25/2023 12:11:23 Adult health examination 369341360 Z00.00 Encouraged well balanced meals, active lifestyle, and routine vision and dental appts. Insomnia 467931479 G47.0 0 Eszopiclon e 2 mg po nightly had shakes.Tra zodone makes her too sleepy the next day.Neo pete doesn't workZolpid em too sleeping the next dayTry on belsomra to help fall asleep. Tobacco user 202957669 Z 72.0 cessation encouraged and recommende d. Using prn. Stopped Jun 2022. Depressive disorder 3548 9007 F32.9 citalopram 20 mg po daily Hypertensive disorder 38 115612 I10 metoprolol succinate ER 25 mg po daily.Nife dipine ER 30 mg po daily. Chronic ki dney disease stage 3 841735159 N18.[address] in october 2022. Seeing [facility]. Hyperlipid emia screening 428792569 Z13.220 Thyroid di sorder screening [id number] Z13.29 Screening mammography 24 [id number] Z12.31 [id number] EVELYN Blake [address] [address] 10/03/2023 10:19:49 10/03/2023 11:19:38 Hypertensive disorder [id number] I10 Chronic ki dney disease stage 3 [id number] N18.30 Screening mammography 24 166145 Z12.31 Hyperlipidemia 45103004 E78.5 Nocturia [id number] R35.1 Fatigue 45795544 R53.83 [id number] EVELYN Blake [address] [address] 05/22/2024 10:00:09 05/22/2024 10:43:19 Transition of care [id number] 105 Z75.8 Patient is doing well. Has appt scheduled for cardiac cath 24Ha s FU with cardio and pulm. Acute bact erial sinusitis 83513360 J01.90 Symptoms x2 weeks [id number] EVELYN Blake [address] [address] 07/03/2024 11:24:49 07/03/2024 12:31:06 Scleroderma [id number] M34.9 Chronic SOB, fatigue.Se eing specialist Fluid present in VIC supraclavi cular regionsWor k restrictio ns filled out and scanned into EMR Pulmonary edema [id number] J81.1 Chronic SOB, fatigue.Se eing specialist Fluid present in VIC supraclavi cular regionsWor k restrictio ns filled out and scanned into EMR Health Concerns Section Related Observation LastModified by Organization Detai ls LastModified Time None Recorded Concern Status LastModified by Organization Details LastModified Time None Recorded Advance Directives Directive N: Payers Encounter Date Sequence Insurance Name Policy Number Policy Kaminski Covered Member ID Kaminski Member ID Guarantor Name 01/25/2023 1 [employer] (INDEMNITY) [id number] Fouzia Lan [id number] Fouzia Lan 10/03/2023 1 [employer] (INDEMNITY) [id number] Fouzia Lan [id number] Fouzia Lan 05/22/2024 1 [employer] (INDEMNITY) [id number] Fouzia Lan [id number] Fouzia Lan 07/03/2024 1 [employer] (INDEMNITY) [id number] Fouzia Lan [id number] Fouzia Lan Notes Date Note Type Note Provider Name and Address Organization Details Recorded Time 01/25/2023 text/html Here for wellnes s and for checkup. SCOTT 01/23/2022 Insomnia- Stable.tobacco- stopped Jun 2022. September [address].depression- stable.htn- Echo stress test was ok. Bond Manager said fu in 1 year.ckd3- Stopped ibuprofen nightly. Slowed down on beer. Cutting back on dark soda. Recheck every 6 weeks for labs. Rheum ordering. scleroderma- mycophenalate to slow process- rheum.No more smoking in Jun 2022. has 1-2 if drinking. Did get a new chocolate lab. Belinda Fields NP [address] [place] [address], [place], [address], [facility] [employer] [facility] 01/25/2023 12:08:03 10/03/2023 text/html Fouzia Lan is a 58 year old female patient here to transition care. She was previously under the care of Belinda Fields DNP. Her past medical history is significant for anxiety and insomnia. She is currently taking citalopram 40 mg PO daily and THC gummies. She admits to 7 hours of sleep each night and states that she feels fatigued during the day. She states that she is up to the bathroom multiple times during the night. She has a history of hypertension. Her BP on arrival is 148/84. She does not take her BP readings at home. She is currently taking metoprolol 25 mg PO daily and nifedipine 30 mg PO daily. She feels that her BP is too high and would like to increase her nifedepine. She declines headaches, light-headedness, dizziness, or ringing in her ears. She has a history of hyperlipidemia. Her last lipid panel (02/08/2023) resulted triglycerides 183 and total cholesterol 254. Recommended that she start rosuvastatin 5 mg PO HS< but she decided not to. Recommended 3 month recheck at that time, but did not happen. Will recheck today. She has chronic kidney disease stage 3. 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 She has a history of scleroderma. She was diagnosed at the age of 34. 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 She sees rheum, derm, and cardio. Flu shot: OVID vaccines: 06/2020, 2020, 2021TDap: hingles: declinesMammogram: ordered todayWWE: unknown, will scheduleColonoscopy: 2021, recommended [address] up with [address] Richy Siddiqui, EVELYN [address], [place], [address], [employer] 10/03/2023 11:19:14 05/22/2024 text/html Paige Lan is a 58 year old female patient here today for hospital FU Went to ER 05/17/24 for SOB, states she could not walk 10 feet without stopping to take a breath. Was told her scleroderma has causing pulmonary hypertension and right sided heart failure. Has cardiac cath scheduled for 05/29/[address] Leos Has additional concerns with sinus infections. States yellow-green mucous and sinus headaches x2 weeks Karla Siddiqui, EVELYN [address], [place], [address], [employer] 05/22/2024 10:34:23 07/03/2024 text/html Paige Lan is a 58 year old female patient here today for work restriction forms. History of scleroderma with pulmonary edema. Feeling more chronically ill. Issues with shortness of breath and increase fatigue. 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 Would like lifting, pushing, and pulling restrictions. Would like approved leave for dr leon. Is seeing on site manager and broommaker Karla Siddiqui, VP ACCOUNT DIRECTOR [address] [facility], [place] [address], [place], [address], [facility] [employer] [facility] 07/03/2024 12:21:37 OBGyn Episode No OBEpisode recorded.
[2024-07-13 07:59] LABS: Basophils Percent Auto 0.5 % (0.2-1.2); Eosinophils Absolute Auto 0.3 K/mm3 (0-0.3); Hematocrit 39.4 % (37.0-47.0); Hemoglobin 12.2 g/dL (12.0-15.0); Immature Granulocyte Absolute 0.03 K/mm3 (0.00-0.031); Immature Granulocyte Percent A 0.4 % (0-0.5); Lymphocytes Absolute Auto 1.24 K/mm3 (0.9-3.2); Lymphocytes Percent Auto 16.9 % (18.3-44.2); Mean Corpuscular Hemoglobin 27.6 pg (26-34); Mean Corpuscular Volume 89.1 fl (80-100); Mean Platelet Volume 10.5 fl (7.4-10.4); Monocytes Absolute Auto 0.8 K/mm3 (0.1-0.6); Monocytes Percent Auto 10.5 % (2.6-8.5); Neutrophils Percent Auto 67.7 % (45.5-73.1); Platelet Count Result 167 k/mm3 (150-375); Red Blood Count 4.42 M/mm3 (4.2-5.4); Red Cell Distribution Width 14.8 % (11.5-14.5); White Blood Count 7.3 K/mm3 (4.5-10.0)
[2024-07-13 08:05] LABS: Add Urine Microscopic? YES; Appearance Urine Clear (Clear); Bacteria Urine None Seen /hpf; Bilirubin Urine Negative (Negative); Blood Urine Negative (Negative); Color Urine Yellow (Yellow); Glucose Urine UA Negative (Negative); Ketones Urine Negative (Negative); Leukocyte Esterase Ur Trace LEU/UL (Negative); Nitrate Urine Negative (Negative); Non Pathogenic Casts 0-2; Protein Urine Negative (Negative); RBC Urine 0-2 /hpf (0-2); Specific Grav Ur 1.011 (1.001-1.035); Squamous Epithelial Cell Urine Occasional /hpf (Few); Urobilinogen Urine 0.2 mg/dL (<2.0); WBC Urine 0-5 /hpf (0-3); pH Urine 5.5 (5.0-9.0)
[2024-07-13 08:29] LABS: Alanine Aminotransferase 14 U/L (6-35); Albumin Level 4.1 g/dL (3.5-5.1); Alkaline Phosphatase 71 U/L (38-126); Anion Gap 10 mmol/L (4-12); Aspartate Amino Transferase 20 U/L (14-36); Bilirubin,Total 0.7 mg/dL (0.2-1.3); Blood Urea Nitrogen 23 mg/dL (7-17); CRP < 0.5 mg/dL (<1.0); Calcium 8.9 mg/dL (8.4-10.2); Carbon Dioxide 23 mmol/L (22-30); Chloride 107 mmol/L (98-107); Creatine Kinase 90 U/L (30-135); Estimated Glomerular Filt Rate 38; Glucose 92 mg/dL (65-110); Potassium 3.8 mmol/L (3.4-5.0); Sodium 140 mmol/L (137-145)
[2024-07-13 08:35] LABS: Erythrocyte Sedimentation Rate 10 mm/hr (0-20)
[2024-07-17 15:04] LABS: Aldolase 3.7 U/L (< OR = 8.1)
== END 2024-07-13 07:09 | disposition home or self-care (01) ==
PROVIDERS: Visit Provider Internal Medicine Rheumatology
DX: M34.9 Systemic sclerosis, unspecified (principal)
CPT/HCPCS: 36415; 80053; 81001; 82085; 82550; 82570; 84156; 84166; 85025; 85652; 86140

== ENCOUNTER 2024-08-05 11:19 | Outpatient (RCR) | payer OTHER, SELFPAY ==
[2024-06-19 13:40] LABS: Hematocrit 42.2 % (37.0-47.0); Hemoglobin 13.7 g/dL (12.0-15.0); Mean Corpuscular HGB Conc 32.5 g/dl (32-36); Mean Corpuscular Hemoglobin 28.2 pg (26-34); Mean Corpuscular Volume 86.8 fl (80-100); Mean Platelet Volume 11.2 fl (7.4-10.4); Platelet Count Result 185 k/mm3 (150-375); Red Blood Count 4.86 M/mm3 (4.2-5.4); Red Cell Distribution Width 14.5 % (11.5-14.5); White Blood Count 7.2 K/mm3 (4.5-10.0)
[2024-06-19 13:58] LABS: Alanine Aminotransferase 13 U/L (6-35); Albumin Level 4.2 g/dL (3.5-5.1); Alkaline Phosphatase 79 U/L (38-126); Anion Gap 7 mmol/L (4-12); Aspartate Amino Transferase 21 U/L (14-36); Bilirubin,Total 0.8 mg/dL (0.2-1.3); Blood Urea Nitrogen 24 mg/dL (7-17); CRP 1.1 mg/dL (<1.0); Carbon Dioxide 25 mmol/L (22-30); Chloride 105 mmol/L (98-107); Creatine Kinase 92 U/L (30-135); Estimated Glomerular Filt Rate 42; Glucose 91 mg/dL (65-110); Potassium 3.6 mmol/L (3.4-5.0); Sodium 137 mmol/L (137-145)
[2024-06-19 14:17] LABS: Erythrocyte Sedimentation Rate 6 mm/hr (0-20)
[2024-06-22 14:47] LABS: Aldolase 6.1 U/L (< OR = 8.1)
[2024-08-05 11:39] LABS: Hematocrit 37.9 % (37.0-47.0); Hemoglobin 12.1 g/dL (12.0-15.0); Mean Corpuscular HGB Conc 31.9 g/dl (32-36); Mean Corpuscular Volume 87.7 fl (80-100); Mean Platelet Volume 10.3 fl (7.4-10.4); Platelet Count Result 201 k/mm3 (150-375); Red Blood Count 4.32 M/mm3 (4.2-5.4); White Blood Count 6.8 K/mm3 (4.5-10.0)
[2024-08-05 11:46] LABS: Add Urine Microscopic? YES; Appearance Urine Clear (Clear); Bacteria Urine None Seen /hpf; Bilirubin Urine Negative (Negative); Blood Urine Negative (Negative); Color Urine Yellow (Yellow); Glucose Urine UA Negative (Negative); Ketones Urine Negative (Negative); Leukocyte Esterase Ur 2+ LEU/UL (Negative); Nitrate Urine Negative (Negative); Protein Urine Negative (Negative); RBC Urine 0-2 /hpf (0-2); Specific Grav Ur 1.015 (1.001-1.035); Squamous Epithelial Cell Urine Few /hpf (Few); Urobilinogen Urine 0.2 mg/dL (<2.0)
[2024-08-05 12:07] LABS: Erythrocyte Sedimentation Rate 15 mm/hr (0-20)
[2024-08-05 12:22] LABS: Alanine Aminotransferase 15 U/L (6-35); Albumin Level 4.2 g/dL (3.5-5.1); Alkaline Phosphatase 71 U/L (38-126); Anion Gap 12 mmol/L (4-12); Aspartate Amino Transferase 19 U/L (14-36); Bilirubin,Total 0.5 mg/dL (0.2-1.3); Blood Urea Nitrogen 21 mg/dL (7-17); CRP 0.8 mg/dL (<1.0); Carbon Dioxide 19 mmol/L (22-30); Chloride 109 mmol/L (98-107); Creatine Kinase 105 U/L (30-135); Estimated Glomerular Filt Rate 36; Glucose 101 mg/dL (65-110); Potassium 3.7 mmol/L (3.4-5.0); Sodium 140 mmol/L (137-145)
[2024-08-07 17:33] LABS: Aldolase 3.6 U/L (< OR = 8.1)
== END 2024-09-17 23:59 | disposition home or self-care (01) ==
LOC: ANHLAB 11:19
PROVIDERS: PCP Nurse Practitioner Family; Visit Provider Internal Medicine Rheumatology
DX: M34.9 Systemic sclerosis, unspecified (principal)
CPT/HCPCS: 36415; 80053; 81001; 82085; 82550; 85027; 85652; 86140

== ENCOUNTER 2024-08-24 07:23 | Outpatient (CLI) | payer OTHER, SELFPAY ==
--- OUTSIDE RECORDS SUMMARY | 2024-08-24 07:29 | XMS_ITS | Clinical Summary ---
Author Organization [facility] [employer] Address [address] [place] [address] Care Team Providers Care Glue Plant Operator Name Role Phone Elisa Harris Primary Care Provider [phone] Source Comments [facility] [employer],non-owned Affiliates and Associated Physician Practices is amultiple site organization consisting of ambulatory clinics and hospital sitesin [place], [place], [place] and [place]. This disclosure is being madepursuant to the Care Everywhere program and may not contain all information available regarding this patient. Last updated 18.[facility] [employer] Allergies No known active allergies Medications * Be aware that medications may not be up to date on this document. Alwaysverify current medications with the patient. 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,Skin ulcer of finger, limited to breakdown of skin (HCC) APPLY TOPICALLY TO SKIN LESION TWICE DAILY 30 g 2 08/05/2024 Active furosemide (Lasix) 40 MG tabletIndicatio ns: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),Diffusion capacity of lung (dl), decreased,Scler oderma (HCC),Acute on chronic right heart failure (HCC) Take 1 (one) tablet by mouth once daily 180 tablet 4 08/11/2024 Active gentamicin (GARAMYCIN) 0.1 % topical ointmentIndicat ions:Dermal Ulcer Apply to affected area 3 times daily Reasons: Skin Ulcer 30 g 2 10/19/2021 5 Discontinued torsemide (Demadex) 5 MG tabletIndicatio ns: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) Take 1 (one) tablet by mouth once daily 90 tablet 3 05/29/2024 5 Discontinued(Lis t Clean-Up) Active Problems Problem Noted Date Diagnosed [...] Encounters Date Type Department Care Team Description 08/11/2024 12:45 PM CDT - 08/11/2024 11:59 PM CDT Hospital Encounter [facility] DIAGNOSTIC RAD OP [address] [place] [address] Brandon Hudson MD Discharge Disposition: Home or Self Care 08/11/2024 11:30 AM CDT Office Visit [facility] - Pulmonology [address] [place] [phone] Brandon Hudson MD 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 (Primary Dx); Diffusion capacity of lung (dl), decreased; Scleroderma; Acute on chronic right heart failure; Dyspnea on exertion 08/11/2024 Travel 08/05/2024 Refill [facility] - Rheumatology [address] [place] [phone] Abrahan Reynaga MD Refill Request 07/08/2024 11:00 AM CATERING COORDINATOR Office Visit [facility] - Cardiology [address] [facility], [facility] [address] [place] [address] Dariana Malik, TJEAS-VALENTINA Scleroderma (Primary Dx); Primary hypertension; MVP (mitral valve prolapse); Right-sided heart failure, unspecified HF chronicity; Chronic kidney disease, unspecified CKD stage; 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 07/08/2024 Travel 06/23/2024 Telephone [facility] - Pulmonology [address] [place] [phone] Flavia Caraballo RN Follow-up 06/22/2024 1:00 PM CATERING COORDINATOR Office Visit [facility] - Rheumatology [address] [facility], [facility] [place] [address] Abrahan Reynaga MD Scleroderma (Primary Dx); Medication monitoring encounter 06/22/2024 Travel 06/16/2024 Refill [facility] SHORT STAY UNIT [address] [place] [address] Alejandro Whittington MD Refill Request 06/05/2024 Telephone [facility] - Pulmonology [address] [facility], [facility] [place] [address] Flavia Caraballo, RN Update 05/29/2024 12:00 PM CATERING COORDINATOR - 05/29/2024 1:25 PM CATERING COORDINATOR Surgery [facility] - Cardiac Credit Risk Analytics Manager [address] [place] [address] Brandon Hudson MD Right Heart Cath 05/29/2024 9:45 AM CATERING COORDINATOR - 05/29/2024 2:17 PM CATERING COORDINATOR Hospital Encounter [facility] AURA OP [address] [place] [address] Brandon Hudson MD Cardiac Catheterization Discharge Disposition: Home or Self Care 05/29/2024 Telephone [facility] - Pulmonology [address], [facility] [address] [place] [address] Brandon Hudson MD Order 05/29/2024 Travel from Last 3 Months Immunizations Name [...] Sign Reading Time Taken Comments Blood Pressure 137/81 08/11/2024 11:42 AM CDT Pulse 69 08/11/2024 11:42 AM CDT Temperature 36.7 C (98 F) 06/22/2024 1:09 PM CATERING COORDINATOR Respiratory Rate 17 08/11/2024 11:42 AM CDT Oxygen Saturation 94% 08/11/2024 11:42 AM CDT Inhaled Oxygen Concentration - - Weight 74.9 kg (165 lb 3.2 oz) 08/11/2024 11:42 AM CDT Height 162.6 cm (5' 4 ) 08/11/2024 11:42 AM CDT Body Mass Index 28.36 08/11/2024 11:42 AM CDT Plan of Treatment Upcoming Encounters Date Type Department Care Team (Latest Contact Info) Description 09/01/2024 10:30 AM CDT Appointment [facility] NUCLEAR MEDICINE [address] [place] [phone] Brandon Hudson MD [address] [facility] 2L DIV OF PULMONARY/[place] [address] 09/01/2024 11:00 AM CDT Appointment [facility] NUCLEAR MEDICINE [facility] [place] [phone] Brandon Hudson MD [address] [facility] 2L DIV OF PULMONARY/[place] [address] 09/01/2024 12:00 PM CDT Appointment [facility] NUCLEAR MEDICINE [address] [place] [address] Brandon Hudson MD [address] [facility] 2L DIV OF PULMONARY/[place] [address] 09/01/2024 12:30 PM CDT Appointment [facility] NUCLEAR MEDICINE [address] [place] [phone] Brandon Hudson MD [address] [place] [address] 2L DIV OF PULMONARY/[place] [address] 09/01/2024 1:00 PM CDT Appointment [facility] ECHO [address] [place] [phone] Bethanie José MD [facility] 2L DIV OF PULMONARY/[place] [address] 09/01/2024 2:00 PM CDT Appointment [facility] PFT [address] [place] [address] 09/08/2024 3:00 PM CDT Office Visit [facility] - Rheumatology [address] [place] [address], [place] [phone] Abrahan Reynaag MD [address] [place] [address] 2L [place] [phone] 09/11/2024 8:00 AM CDT Hospital Encounter [facility] A[facility] OP [address] [place] [phone] Brandon Hudson MD [address] [facility] 2L DIV OF PULMONARY/[place] [address] Cardiac Catheterization 09/11/2024 8:00 AM CDT - 09/11/2024 9:22 AM CDT Surgery [facility] - Cardiac Credit Risk Analytics Manager [address] [place] [address] Brandon Hudson MD [address] [facility] 2L DIV OF PULMONARY/[place] [address] Right Heart Cath 10/13/2024 10:30 AM CDT Office Visit [facility] - Pulmonology [address] [facility], [place] [phone] Brandon Hudson MD [address] [facility] 2L DIV OF PULMONARY/[place] [phone] 01/05/2025 10:30 AM CDT Office Visit [facility] - Cardiology [address] [facility], [facility] [address] [place] [address] Dariana Malik APRN-FISH PACKER [address] [facility] [address] [place] [address] Health Maintenance Due Date Last Done Comments [...] of 3 - 19+ 3-dose series) 09/17/1983 PNEUMOCOCCAL VACCINE 50+ (1 of 2 - PCV) 09/17/1983 LIPID TESTING 02/17/2014 02/17/2009 ZOSTER VACCINE (1 of 2) 2014 COVID-19 VACCINE ( - season) 2024 03/10/2021, 06/10/2020, 05/20/2020 INFLUENZA [...] complete this topic MENINGOCOCCAL (Group B) VACCINE SHARED DECISION-MAKING Aged Out No longer eligible based on patient's age to complete this topic MENINGOCOCCAL GROUPS A/C/Y/W VACCINE Aged Out No longer eligible based on patient's age to complete this topic Procedures Procedure Name Priority Date/Time Associated Diagnosis Comments XR CHEST 2VW Routine 08/11/2024 1:01 PM CDT 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 Acute on chronic right heart failure Dyspnea on exertion LAB RESULTS ORDER 07/01/2024 CCL RIGHT HEART CATH Routine 05/29/2024 1:05 PM CATERING COORDINATOR 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 Minimal pleural effusions. > Interpreting Provider: Ramona Reaves MD on 08/13/2024 3:01 PM Narrative 08/13/2024 3:01 PM CDT PROCEDURE: XR CHEST 2VW DATE/TIME OF EXAM: 08/11/2024 1:01 PM CLINICAL INFORMATION: None relevant/not provided if blank. 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 FINDINGS: The heart is enlarged. The pulmonary vasculature is upper limits of normal. There is no pulmonary consolidation. Minimal pleural effusions are noted. No pneumothorax. Mediastinal contours are normal. No acute bony abnormality. Procedure Note Ramona Reaves MD - 08/13/2024 PROCEDURE: XR CHEST 2VW DATE/TIME OF EXAM: 08/11/2024 1:01 PM CLINICAL INFORMATION: None relevant/not provided if blank. 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 FINDINGS: The heart is enlarged. The pulmonary vasculature is upper limits ofnormal. There is no pulmonary consolidation. Minimal pleural effusions arenoted. No pneumothorax. Mediastinal contours are normal. No acute bony abnormality. IMPRESSION: Cardiomegaly. Minimal pleural effusions. > Interpreting Provider: Ramona Reaves MD on 08/13/2024 3:01 PM Brandon Hudson MD DIAGNOSTIC IMAGING O RDERABLES * LAB RESULTS ORDER (07/01/2024) Narrative 07/01/2024 Ordered by an unspecified provider. Scanned Document LAB - THERAPEUTIC DR HERNANDEZ MONITORING ORDERABLES * CCL RIGHT HEART CATH (05/29/2024 1:05 PM CATERING COORDINATOR) Anatomical Region Laterality Modality X-Ray Angiograph y Narrative 05/29/2024 4:25 PM CATERING COORDINATOR [facility]. Department of Pulmonary and Critical Care Medicine [...] blood and flushed with saline. A 7 georgian swan-em catheter was advanced through the sheath [...] CV CARDIAC CATH CUPI D PROCS * (ABNORMAL) COMPREHENSIVE METABOLIC PANEL (05/18/2024 12:34 AM [facility]) BUN 19 7 - 26 mg/dL 05/18/2024 1:45 AM [facility] Creatinine 1.28(H) 0.56 - 0.96 mg/dL 05/18/2024 1:45 AM [facility] Sodium 139 136 - 145 mmol/L 05/18/2024 1:45 AM [facility] Potassium 4.5 3.5 - 4.5 mmol/L 05/18/2024 1:45 AM [facility] Chloride 111(H) 98 - 107 mmol/L 05/18/2024 1:45 AM [facility] CO2 20(L) 22 - 29 mmol/L 05/18/2024 1:45 AM [facility] Glucose 164(H) 70 - 99 mg/dL 05/18/2024 1:45 AM [facility] Calcium 8.9 8.4 - 10.2 mg/dL 05/18/2024 1:45 AM [facility] Protein Total 6.0 6.0 - 8.3 g/dL 05/18/2024 1:45 AM [facility] Albumin 3.3(L) 3.4 - 5.0 g/dL 05/18/2024 1:45 AM [facility] Bilirubin Total 0.5 0.2 - 1.2 mg/dL 05/18/2024 1:45 AM [facility] Alkaline Phosphatase 61 40 - 150 U/L 05/18/2024 1:45 AM [facility] ALT 82(H) 5 - 55 U/L 05/18/2024 1:45 AM [facility] AST 26 5 - 34 U/L 05/18/2024 1:45 AM [facility] Anion Gap 8 6 - 16 05/18/2024 1:45 AM [facility] BUN/Creatinine Ratio 15 7 - 23 05/18/2024 1:45 AM [facility] Osmolality Calculated 294 275 - 295 mOsm/kg 05/18/2024 1:45 AM [facility] Albumin/Globulin Ratio 1.2 1.1 - 2.3 05/18/2024 1:45 AM [facility] eGFR by CKD-EPI 48(L) >=90 mL/min/1.7 3 m2 05/18/2024 1:45 AM [facility] Blood BLOOD SPECIMEN / Unknown Lab Venipuncture / Unknown 05/18/2024 12:34 AM CATERING COORDINATOR 05/18/2024 1:17 AM CATERING COORDINATOR Michael Howard MD LAB - CHEMISTRY [facility] Organization Address City/State/ZIP Co de Phone Number [facility] [address] [place] [phone], [facility] [phone] * (ABNORMAL) LIPID PROFILE (02/17/2009 11:48 AM [...] PM CDT Narrative Resulting Agency Comment [facility] [address] [phone] Faviola Mandel MD LAB - CHEMISTRY [facility] ACCOUNT BILL from Last 3 Months or Most Recently Relevant to Health Maintenance Advance Directives * Full Code (Latest Code Status on File) Date Activated Date Inactivated Comments 05/17/2024 9:51 PM 05/20/2024 3:01 PM Care Teams Glue Plant Operator Relationship Specialty Start Date End Date Elisa Harris [address] [place] [phone] PCP - General 05/25/24
--- OUTSIDE RECORDS SUMMARY | 2024-08-24 07:29 | XMS_ITS | Data Portability ---
Author Organization [place] [facility] [place], Main Office Address [address] [place] [address] Care Team Providers Care Sound System Installer Name Role Phone KARLA SIDDIQUI Primary Care Provider [phone] Assessment Encounter Date Assessment Date Assessment LastModified [...] Modified Time Details Appointments None recorded. Lab HbA1c (hemoglobin A1c), blood [address] (Lab), [address] [place] [address], [phone], 08:43:30 lipid panel, serum [address] (Lab), [address] [place] [address], [address], 4 08:43:30 TSH, serum or plasma [address] (Lab), [address] [place] [address], [address], 4 08:43:30 lipid panel, serum [address] (Lab), [address] [place] [address], [address], 3 08:36:21 TSH, serum or plasma [address] (Lab), [address] [place] [address], [address], 3 08:36:21 Referral None recorded. Procedures None recorded. Surgeries None recorded. Imaging MAMMO, screening, digital, bilateral [address] [facility], [address], [place], [address], 4 09:19:09 MAMMO, screening, bilateral [address] [facility], [address], [place], [address], 3 08:42:55 Medication Orders amoxicillin 875 mg-potassiu m clavulanate 125 mg tablet [address] [facility], [address] [place], [place], [id number], 5 11:37:50 nifedipine ER 60 mg tablet,exte nded release 24 hr 2023 024 [facility], [address] [place], [place], [id number], 4 11:03:32 Farxiga 10 mg tablet [address] [facility]84, [address], [place], [place], [id number], 4 10:09:23 Belsomra 10 mg tablet 2022 023 [facility]60, [address] [facility], [place], [id number], 4 10:32:01 Patient TargetsNo targets recorded. Patient Instructions Encounter Date Encounter Id Patient Instructions Last Modified By Organization Details Last Modified Time 01/25/2023 [id number] INFLUENZA VACCIN E TD/TDAP PNEUMONIA VACCINE Ordered [...] after 01/27/24 Not available 01/25/2023 12:06:57 05/22/2024 [id number] Thank you for your visit to our [...] homebound status*}} Required Home Health Services: {{none* [facility], [facility], occupational therapy [facility], physical therapy [facility]}} Durable Medical Equipment needed: {{cane walker wal ker with seat manual wheelchair bedsid e commode oxygen}} Billing Guidelines CPT code 29118- Transitional Care Management services with moderate medical decision complexity (rzgm-hq-yxeh visit within 14 days of discharge). CPT code 98728- Transitional Care Management services with high medical decision complexity (xlgw-tr-cpbe visit within 7 days of discharge). [email or web address] Not available 05/22/2024 10:24:37 Reason for Referral None Reported. Results Created Date Observation Date Name Description Value Unit Range Abnormal Flag Note LastModifiedBy Organization Detail LastModifiedTime Result Notes None recorded. Problems Name Problem SNOMED Code Status Onset Date Resolution Date Notes Provider Name and Address Organization Details Recorded Time Infection of skin 780849187 Active Not Available [facility] 3 08:49:24 Tobacco user 423599825 Active 2017 Not Available [facility] 3 08:49:24 Acute sinusitis 58067193 Active Not Available [facility] 3 08:49:25 Insomnia 504131787 Active 2021 Not Available [facility] 3 08:49:25 Raynaud's disease 336733329 Active 2020 Not Available [facility] 3 08:49:25 Finger ulcer 559883338 Active 2020 Not Available [facility] 3 08:49:25 Bronchitis 00859135 Active Not Available [facility] 3 08:49:25 Depressive disorder 78256024 Active Not Available [facility] 3 08:49:25 Hypertensive disorder 97926055 Active Not Available [facility] 3 08:49:25 Posterior rhinorrhea 96808635 Active Not Available [facility] 3 08:49:25 Smoker 34179858 Active 2019 Not Available [facility] 3 08:49:25 Chronic kidney disease stage 3 712603541 Active 2022 Belinda Fields NP [address], [address], [place], [address] , [place] [facility] 3 21:12:50 Hyperlipidemi a 47062014 Active 2022 Belinda Fields NP [address], [address], [place], [address] , [place] [facility] 3 11:55:36 Essential hypertension 27522001 Active 2023 EVELYN Blake [address], [address], [place], [address] , [place] [facility] 4 14:43:21 Nocturia 972245450 Active 2023 EVELYN Blake [address], [address], [place], [address] , [place] [facility] 4 11:02:14 Fatigue 66913725 Active 2023 EVELYN Blake [address], [address], [place], [address] , [place] [facility] 4 11:03:01 Acute bacterial sinusitis 57159044 Active 2023 EVELYN Blake [address], [address], [place], [address] , [place] [facility] 4 10:23:17 Scleroderma Active 2024 EVELYN Blake [address], [address], [place], [address] , [place] [facility] 5 12:20:17 Pulmonary edema 08563442 Active 2024 EVELYN Blake [address], [address], [place], [address] , [place] [facility] 12:20:24 Notes:Some problems listed i n Document: #[id number] could not be added to this patient's chart. Please review this document and add these problems to the patient's chart manually as needed. Problem Notes None recorded. Procedures Surgical History Date Name Laterality Status Provider Name and Address Organization Details Recorded Time 05/22/20 24 Transitional_Care _Management completed Karla EVELYN Siddiqui [address] [facility], [address], [place], [address], [place] [facility] [place] 05/22/2024 10:34:16 05/08/20 21 Colonoscopy completed Not Available [facility] 08/02/19 08:44:56 colonoscopy completed Not Available [facility] 08/01/2022 08:44:56 Kidney/Bladder Surgery completed Not Available [facility] 08/01/2022 08:44:56 Tonsillectomy completed Not Available [facility] 08/01/2022 08:44:56 partial resection of colon completed Not Available [facility] 08/01/2022 08:44:56 Imaging Results None recorded. Procedure [...] 1 TABLET BY MOUTH EVERY DAY DIRECTED 2024 active Not Available Not Available Not Avai lable benzonatat e 100 mg capsule Take 2 [...] and Address Organization Details Last Updated DateTime 2 28.3 kg/m2 162.56 cm 99 % 99 % 61 /min 16 /min 98.1 [degF] 27201.7 4 g 132 mm[Hg] 86 mm[Hg] Not Available [facility] 3 08:48:27 Date Recorded Body height Body mass index (BMI) Body weight Body temperature Heart rate Oxygen saturation Oxygen saturation in Arterial blood by Pulse oximetry Pain severity - 0-10 verbal numeric rating [Score] - Reported Systolic blood pressure Diastolic blood pressure Provider Name and Address Organization Details Last Updated DateTime 3 160.02 cm 29.3 kg/m2 65866.8 9 g 97.9 [degF] 72 /min 97 % 97 % 0 133 mm[Hg] 83 mm[Hg] NAVIN Knight - S [place] [employer] [facility] 3 11:32:30 Date Recorded Body height Body mass index (BMI) Body weight Body temperature Heart rate Respiratory rate Oxygen saturation Oxygen saturation in Arterial blood by Pulse oximetry Pain severity - 0-10 verbal numeric rating [Score] - Reported Systolic blood pressure Diastolic blood pressure Provider Name and Address Organization Details Last Updated DateTime 4 160.02 cm 31.8 kg/m2 80291.4 3 g 96.5 [degF] 71 /min 20 /min 98 % 98 % 0 148 mm[Hg] 84 mm[Hg] Belinda Patel RN [facility] [employer] [facility] 4 10:34:51 Date Recorded Body height Body mass index (BMI) Body weight Body temperature Respiratory rate Heart rate Oxygen saturation Oxygen saturation in Arterial blood by Pulse oximetry Pain severity - 0-10 verbal numeric rating [Score] - Reported Systolic blood pressure Diastolic blood pressure Provider Name and Address Organization Details Last Updated DateTime 4 160.02 cm 29.1 kg/m2 18433.9 5 g 97.3 [degF] 24 /min 77 /min 99 % 99 % 0 140 mm[Hg] 88 mm[Hg] Belinda Patel RN [facility] [place] 4 10:12:21 Date Recorded Body height Body [...] 128 mm[Hg] 80 mm[Hg] Belinda Patel RN [facility] [place] 5 11:41:32 Social History Question Answer Notes LastModified by Organization Details LastModified Time Tobacco Smoking Status Former Smoker Not Available [facility] 08/01/2022 08:44:50 Do You Have An Advance Directive? No Information not available 10/03/2023 What Is Your Level Of Alcohol Consumption? Moderate Weekends MIGRATION.0301 [id number] Information not available 08/01/2022 Is Blood Transfusion Acceptable In An Emergency? Yes Information not available 10/03/2023 What Is Your Level Of Caffeine Consumption? Heavy Information not available 10/03/2023 How Much Tobacco Do You Chew? None MIGRATION.0301 [id number] Information not available 08/01/2022 What Is Your Code Status? Full Code Information not available 10/03/2023 In The 14 Days Before Symptom Onset, Have You Had Close Contact With A Laboratory-danette hutchinsoned COVID-19 While That Case Was Ill? No MIGRATION.0301 [id number] Information not available 08/01/2022 In The 14 Days Before Symptom Onset, Have You Had Close Contact With A Person Who Is Under Investigation For COVID-19 While That Person Was Ill? No MIGRATION.0301 642570 Information not available 08/01/2022 Are You Currently Employed? Yes Information not available 10/03/2023 What Type Of Diet Are You Following? REGULAR MIGRATION.0301 451700 Information not available 08/01/2022 Do You Or Have You Ever Used E-cigarettes Or Vape? 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 No MIGRATION.0301 709146 Information not available 08/01/2022 Do You Use Insect Repellent Routinely? Yes MIGRATION.0301 772095 Information not available 08/01/2022 Where Do You Live? SingleLevelHouse Information not available 10/03/2023 Do You Have A Medical Power Of Shop Steward? No Information not available 10/03/2023 How Many Children Do You Have? 3 Information not available 10/03/2023 Do You Have Any Pets? Yes MIGRATION.0301 787283 Information not available 08/01/2022 What Is Your Relationship Status? MIGRATION.0301 835352 Information not available 08/01/2022 Do You Use Your Seat Belt Or Car Seat Routinely? Yes MIGRATION.0301 656658 Information not available 08/01/2022 Do You Have Smoke And Carbon Monoxide Detectors In Your Home? Yes MIGRATION.0301 251977 Information not available 08/01/2022 Do You Or Have You Ever Used Smokeless Tobacco? Never Used Smokeless Tobacco MIGRATION.0301 600459 Information not available 08/01/2022 Are There Any Smokers In Your House? Yes MIGRATION.0301 474769 Information not available 08/01/2022 How Much Tobacco Do You Smoke? 0.25 PPD Information not available 10/03/2023 Do You Participate In Social Media? Yes MIGRATION.0301 640929 Information not available 08/01/2022 Do You Feel Stressed (tense, Restless, Nervous, Or Anxious, Or Unable To Sleep At Night)? [id number] Information not available 10/03/2023 Do You Use Sunscreen Routinely? Yes MIGRATION.030 193744 Information not available 08/01/2022 Has Tobacco Cessation Counseling Been Provided? No MIGRATION.030 113267 Information not available 08/01/2022 Have You Recently Traveled Abroad? No MIGRATION.030 823259 Information not available 08/01/2022 Do You Have Any Dietary Restrictions? No MIGRATION.030 333688 Information not available 08/01/2022 Do You Or Have You Ever Used Any Other Forms Of Tobacco Or Nicotine? No MIGRATION.030 408239 Information not available 08/01/2022 Sex: Unknown Functional Status Question Answer Note LastModified by Organization D etails LastModified Time What is your exercise level? None Information not available 10/03/2023 Mental Status None recorded. Family History Relationship Description Onset Age of this Age Resolved Age Notes LastModified by Organization Details LastModified Time Mother Malignant tumor of lung for the third time. MIGRATION.756 [id number] Not available 08/01/2022 08:45:00 Medical History Condition Response HEART DISEASE/HEART PROBLEMS Y OTHER # 1 ANXIETY DISORDER Y DEPRESSION (INCLUDING POST ) Y HYPERTENSION Y ASTHMA Y Gynecological History Statement/Question Response If Post [...] (COVID-19) vaccine, UNSPECIFIED 1 completed Not Available [facility] 08/01/2022 08:53:58 Influenza, split virus, quadrivalent, preservative 7 completed Not Available [facility] 08/01/2022 08:53:58 Influenza, split virus, trivalent, preservative 5 completed Not Available [facility] 08/01/2022 08:53:58 Influenza, split virus, trivalent, preservative 4 completed Not Available [facility] 08/01/2022 08:53:58 Past Encounters Encounter ID Performer Location Encounter Start Date Encounter Closed Date Diagnosis/Indication Diagnosis SNOMED-CT Code Diagnosis ICD10 Code Diagnosis Note [id number] [facility] [address] [place] [address] 08/23/2020 00:00:00 08/23/2020 11:10:04 [id number] [facility] [address] 01/03/2021 00:00:00 01/03/2021 12:48:44 [id number] [facility] [address] 02/09/2021 00:00:00 02/09/2021 11:56:14 [id number] [facility] [address] 03/23/2021 00:00:00 03/23/2021 13:02:22 [id number] [facility] [address] 08/02/2021 00:00:00 08/02/2021 15:46:[id number] [address] 01/23/2022 00:00:00 01/23/2022 12:26:52 [id number] Belinda Fields NP [address] [address] 01/25/2023 11:18:21 01/25/2023 12:11:23 Adult health examination 565377023 Z00.00 Encouraged well balanced meals, active lifestyle, and routine vision and dental appts. Insomnia 524959693 G47.0 0 Eszopiclon e 2 mg po nightly had shakes.Tra zodone makes her too sleepy the next day.Neo pete doesn't workZolpid em too sleeping the next dayTry on belsomra to help fall asleep. Tobacco user 846342169 Z 72.0 cessation encouraged and recommende d. Using prn. Stopped Jun 2022. Depressive disorder 5191 0757 F32.9 citalopram 20 mg po daily Hypertensive disorder 38 077833 I10 metoprolol succinate ER 25 mg po daily.Nife dipine ER 30 mg po daily. Chronic ki dney disease stage 3 692193626 N18.[address] in october 2022. Seeing [facility]. Hyperlipid emia screening 151130572 Z13.220 Thyroid di sorder screening 881774937 Z13.29 Screening mammography 24 326861 Z12.31 [id number] EVELYN Blake [address] [address] 10/03/2023 10:19:49 10/03/2023 11:19:38 Hypertensive disorder 96639153 I10 Chronic ki dney disease stage 3 549610440 N18.30 Screening mammography 24 421231 Z12.31 Hyperlipidemia 52093218 E78.5 Nocturia 993745955 R35.1 Fatigue 13459594 R53.83 [id number] EVELYN Blake [address] [address] 05/22/2024 10:00:09 05/22/2024 10:43:19 Transition of care 9993043908 105 Z75.8 Patient is doing well. Has appt scheduled for cardiac cath 24Ha s FU with cardio and pulm. Acute bact erial sinusitis 83956062 J01.90 Symptoms x2 weeks [id number] EVELYN Blake [address] [address] 07/03/2024 11:24:49 07/03/2024 12:31:06 Scleroderma 122081989 M34.9 Chronic SOB, fatigue.Se eing specialist Fluid present in VIC supraclavi cular regionsWor k restrictio ns filled out and scanned into EMR Pulmonary edema 58296493 J81.1 Chronic SOB, fatigue.Se eing specialist Fluid [...] ID Guarantor Name 01/25/2023 1 UMR (INDEMNITY) [id number] Fouzia Lan [id number] Fouzia Lan 10/03/2023 1 UMR (INDEMNITY) [id number] Fouzia Lan [id number] Fouzia Lan 05/22/2024 1 UMR (INDEMNITY) [id number] Fouzia Lan [id number] Fouzia Lan 07/03/2024 1 UMR (INDEMNITY) [id number] Fouzia Lan [id number] Fouzia Lan Notes Date Note Type Note Provider Name and Address Organization Details Recorded Time 01/25/2023 text/html Here for wellnes s and for checkup. SCOTT 01/23/2022 Insomnia- Stable.tobacco- stopped Jun 2022. September [address].depression- stable.htn- Echo stress test was ok. 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 Slowed down on beer. Cutting back on dark soda. Recheck every 6 weeks for labs. Rheum ordering. scleroderma- mycophenalate to slow process- rheum.No more smoking in Jun 2022. has 1-2 if drinking. Did get a new chocolate lab. Belinda Fields NP [address] [facility] [address], [place], [address], [facility] [employer] [facility] 01/25/2023 12:08:03 10/03/2023 text/html Fouzia Lan is [...] up with Dr. Richy Siddiqui, EVELYN [address], [place], [address], [facility] 10/03/2023 11:19:14 05/22/2024 text/html Paige Lan is [...] headaches x2 weeks Karla Siddiqui, EVELYN [address], [place], [address], [employer] 05/22/2024 10:34:23 07/03/2024 text/html Paige Lan is [...] approved leave for dr leon. Is seeing semiconductor bonder and counter tender EVELYN Blake [address] [address], [place], [address], [facility] [employer] [facility] 07/03/2024 12:21:37 OBGyn Episode No OBEpisode recorded.
[2024-08-24 08:02] LABS: Anion Gap 10 mmol/L (4-12); Blood Urea Nitrogen 24 mg/dL (7-17); Calcium 9.6 mg/dL (8.4-10.2); Carbon Dioxide 25 mmol/L (22-30); Chloride 106 mmol/L (98-107); Estimated Glomerular Filt Rate 34; Glucose 91 mg/dL (65-110); Potassium 4.1 mmol/L (3.4-5.0); Sodium 141 mmol/L (137-145)
== END 2024-08-24 07:24 | disposition home or self-care (01) ==
DX: I27.21 Secondary pulmonary arterial hypertension (principal); M35.9 Systemic involvement of connective tissue, unspecified; R94.2 Abnormal results of pulmonary function studies; I50.813 Acute on chronic right heart failure; M34.9 Systemic sclerosis, unspecified
CPT/HCPCS: 36415; 80048

== ENCOUNTER 2024-10-30 15:47 | Outpatient (RCR) | payer OTHER, SELFPAY ==
[2024-10-30 16:41] LABS: Hematocrit 40.8 % (37.0-47.0); Hemoglobin 13.0 g/dL (12.0-15.0); Mean Corpuscular HGB Conc 31.9 g/dl (32-36); Mean Corpuscular Hemoglobin 27.6 pg (26-34); Mean Corpuscular Volume 86.6 fl (80-100); Platelet Count Result 240 k/mm3 (150-375); Red Blood Count 4.71 M/mm3 (4.2-5.4); White Blood Count 10.7 K/mm3 (4.5-10.0)
[2024-10-30 20:01] LABS: Alanine Aminotransferase 16 U/L (6-35); Albumin Level 4.4 g/dL (3.5-5.1); Alkaline Phosphatase 82 U/L (38-126); Anion Gap 13 mmol/L (4-12); Aspartate Amino Transferase 26 U/L (14-36); Bilirubin,Total 0.4 mg/dL (0.2-1.3); Blood Urea Nitrogen 29 mg/dL (7-17); CRP 0.6 mg/dL (<1.0); Calcium 9.1 mg/dL (8.4-10.2); Carbon Dioxide 22 mmol/L (22-30); Chloride 109 mmol/L (98-107); Creatine Kinase 101 U/L (30-135); Estimated Glomerular Filt Rate 30; Glucose 78 mg/dL (65-110); Potassium 3.3 mmol/L (3.4-5.0); Sodium 144 mmol/L (137-145); Total Protein 7.0 g/dL (6.3-8.2)
[2024-11-04 16:47] LABS: Aldolase. 6.2 U/L (< OR = 8.1)
== END 2025-01-28 23:59 | disposition home or self-care (01) ==
LOC: ANHLAB 15:47
PROVIDERS: Visit Provider Internal Medicine Rheumatology
DX: M34.9 Systemic sclerosis, unspecified (principal)
CPT/HCPCS: 36415; 80053; 82085; 82550; 85027; 85652; 86140

== ENCOUNTER 2024-12-05 05:16 | Inpatient (IN) | payer OTHER, SELFPAY ==
[2024-12-05] VITALS (15 sets, daily range): BP systolic 97–151; BP diastolic 43–94; PULSE 66–87; RESP 16–23; TEMP 36.9–37.1; O2SAT 95–100; BMI 28.5
--- NOTE | ~2024-12-05 | XR_ITS ---
CHEST RADIOGRAPH CLINICAL HISTORY: reva . COMPARISON: 04/01/2018 TECHNIQUE: Single portable view of the chest. FINDINGS The cardiomediastinal silhouette is enlarged, likely secondary to technique. Patchy opacification of the left mid to lower lung field for which a early infiltrate is suspected. The remainder of the lungs are clear. IMPRESSION: Early infiltrate within the left mid to lower lung field. Reviewed, dictated and finalized at location A.
--- NOTE | 2024-12-05 05:21 | ED.SOB ---
HPI - SOB/Dyspnea General Chief Complaint: Shortness of Breath/Dyspnea Stated Complaint: PANIC ATTACK/SOB Time Seen by Provider: 12/05/24 05:20 History of Present Illness HPI Narrative: 59-year-old female with history of scleroderma resulting in severe pulmonary hypertension presenting to the emergency department with difficulty breathing and suspected panic attack. She states she woke up in her normal state of health and went to the bathroom but by the time she got back she was feeling short of breath began having a panic attack. She does wear oxygen at night and was found to be 94% on 6 L by EMS. They transition her into the stretcher without oxygen she desatted into the low 80s followed by improvement with oxygen at 3 L. she states that she took an extra dose of Lasix 80 mg at home to try and urinate and diurese herself and she had significant improvement and felt her symptoms were improving upon arrival to the emergency department. No reported chest pain or pressure, endorses a shortness of breath sensations similar to a panic attack as well as shaking in both upper extremities which have now improved. No nausea, vomiting, abdominal pain, back pain. No recent changes to her medication regimen. She has had previous episodes of pulmonary hypertension exacerbations very similar to this that responded to diuresis. No history of thromboembolic disease per review of the EMR. Patient is on multiple medications including Lasix, biologic agents and sildenafil for pulmonary hypertension. Related Data Home Medications ?Medication ?Instructions ?Recorded ?Confirmed ?Last Taken ?Type citalopram 20 mg tablet 40 mg PO DAILY 04/10/19 08/28/23 05/08/21 History metoprolol tartrate 25 mg tablet 25 mg PO DAILY 04/10/19 08/28/23 05/08/21 History omeprazole 20 mg capsule,delayed 20 mg PO DAILY 04/20/21 08/28/23 Unknown History release mycophenolate mofetil 500 mg tablet 500 mg PO BID 08/28/23 08/28/23 Unknown History nifedipine 30 mg tablet,extended 30 mg PO DAILY 08/28/23 08/28/23 Unknown History release 24 hr Allergies Allergy/AdvReac Type Severity Reaction Status Date / Time No Known Allergies Allergy Verified 08/28/23 08:51 Review of Systems Review of Systems: As reviewed above in HPI [facility] Past Medical History Medical History Cardiac arrhythmia Solitary kidney Scleroderma Raynaud's disease without gangrene Polyp, sigmoid colon Granuloma of intestine Mitral valve prolapse Hypertension Family History Family History Sibling Depression Mother Hypertension Colon polyp Family history of malignant neoplasm of breast in first degree relative Father Family history of lung cancer Social History Social History Smoking packs per day: 0.5 Smoking cigarettes per day: 10.0 Years smoked: 35 Smoking pack-years: 17.50 Smoking status: Former smoker Tobacco type: cigarettes Alcohol intake: current Drinks per week: 10 Living arrangements: with family Spiritual care concerns: No Exam Narrative: GENERAL: Dyspneic in appearance and answers questions in short sentences. Awake alert oriented HEAD: [Normocephalic, atraumatic.] EYES: [PERRLA and EOMI.] ENT: Nares clear, no rhinorrhea or epistaxis. Mucous membranes moist. NECK: Supple. CHEST: Dyspneic but clear breath sounds without any wheezing or decreased air entry. No accessory muscle use. HEART: [Regular rate and rhythm]. No murmur heard. [Normal peripheral pulses.] ABDOMEN: [Soft, nondistended], [nontender], [No rigidity or guarding] EXTREMITIES: Normal range of motion. [No edema.] SKIN: Warm, dry, no rash. NEURO: [No focal deficits]. Alert and oriented [x3.] PSYCH: [Normal mood and affect.] Course Vital Signs Vital signs: Vital Signs Pulse Rate 87 12/05/24 05:15 Respiratory Rate 23 H 12/05/24 05:15 Blood Pressure 151/94 H 12/05/24 05:15 Pulse Oximetry 96 12/05/24 05:15 Oxygen Delivery Nasal Cannula 12/05/24 05:15 Oxygen Flow Rate 4 12/05/24 05:15 Temperature 37.0 C 12/05/24 05:23 Pulse Rate 87 12/05/24 05:23 Respiratory Rate 19 12/05/24 05:23 Blood Pressure 151/94 H 12/05/24 05:23 Pulse Oximetry 97 12/05/24 05:23 Oxygen Delivery Nasal Cannula 12/05/24 05:23 Oxygen Flow Rate 4 12/05/24 05:23 MDM - SOB/Dyspnea MDM Narrative Medical decision making narrative: 59-year-old female with history of scleroderma resulting in severe pulmonary hypertension presenting to the emergency department with difficulty breathing and suspected panic attack. She states she woke up in her normal state of health and went to the bathroom but by the time she got back she was feeling short of breath began having a panic attack. She does wear oxygen at night and was found to be 94% on 6 L by EMS. They transition her into the stretcher without oxygen she desatted into the low 80s followed by improvement with oxygen at 3 L. she states that she took an extra dose of Lasix 80 mg at home to try and urinate and diurese herself and she had significant improvement and felt her symptoms were improving upon arrival to the emergency department. No reported chest pain or pressure, endorses a shortness of breath sensations similar to a panic attack as well as shaking in both upper extremities which have now improved. No nausea, vomiting, abdominal pain, back pain. No recent changes to her medication regimen. She has had previous episodes of pulmonary hypertension exacerbations very similar to this that responded to diuresis. No history of thromboembolic disease per review of the EMR. Patient is on multiple medications including Lasix, biologic agents and sildenafil for pulmonary hypertension. No previous recent surgeries, no history of DVT or PE, no leg swelling or DVT signs. Patient appears dyspneic and speaks in short sentences but has clear air entry and no wheezing or decreased aeration. Consistent with pulmonary hypertension history. Other potential causes are etiologies include pneumonia pneumothorax, thromboembolic disease such as PE, ACS. She states she feels much better after diuresing herself at home prior to arrival and has use the restroom several times. She is mildly tachypneic with respiratory rate 23, 96% on 4 L nasal cannula this time, mildly hypertensive blood pressure 151/94. CBC, CMP, D-dimer, troponin, VBG, EKG and chest x-ray obtained and she was given additional 40 mg of IV Lasix for diuresis with presumptive working diagnosis of pulmonary hypertension exacerbation. VBG is reassuring with a normal pH, pCO2 and bicarb. She has a slight leukocytosis of 14.6, anemia of 11.1. Platelet count 184. D-dimer mildly elevated 0.72 and negative per YEARS criteria with a very low thromboembolic risk. Electrolytes largely unremarkable. BUN and creatinine around baseline GFR functionality. Negative lactic acid, normal magnesium and LFTs. Negative troponin. BNP ordered and pending. Chest x-ray appears to have some pulmonary congestion and pleural effusion on the left side, awaiting radiology read. EKG shows sinus rhythm. Patient re-evaluated and felt much improved after diuresis. Still requiring oxygen at this time and even had an episode of desatting down to the 70s when she was transition to use the bedside commode. Patient desats to 90% with conversation but comes back up to 97% on currently 4 L. She is feeling better after diuresis but her chest x-ray and clinical status warrants additional diuresis for optimization and to get her off the oxygen. I spoke to the hospitalist who accepted the patient to the IMU at this time. Patient was placed on scheduled 40 mg q.6 hourly 6, admission orders to the IMU placed. Patient comfortable with this plan. Medical Records Attestation: I reviewed the patient's medical records. Lab Data Attestation: I reviewed the patient's lab results. 12/05/24 05:29 12/05/24 05:29 Labs: Lab Results 12/05/24 Range/Units 05:29 WBC 14.6 H (4.5-10.0) K/mm3 RBC 4.28 (4.2-5.4) M/mm3 Hgb 11.5 L (12.0-15.0) g/dL Hct 37.1 (37.0-47.0) % MCV 86.7 (80-100) fl MCH 26.9 (26-34) pg MCHC 31.0 L (32-36) g/dl RDW 16.5 H (11.5-14.5) % Plt Count 184 (150-375) k/mm3 MPV 9.8 (7.4-10.4) fl Immature Gran % (Auto) 0.5 (0-0.5) % Neut % (Auto) 83.7 H (45.5-73.1) % Lymph % (Auto) 8.5 L (18.3-44.2) % Redwood % (Auto) 5.2 (2.6-8.5) % Eos % (Auto) 1.8 (0-4.4) % Baso % (Auto) 0.3 (0.2-1.2) % Lymph # (Auto) 1.24 (0.9-3.2) K/mm3 Redwood # (Auto) 0.8 H (0.1-0.6) K/mm3 Eos # (Auto) 0.3 (0-0.3) K/mm3 Baso # (Auto) 0.1 (0.0-0.1) K/mm3 Abs Immat Gran (auto) 0.08 H (0.00-0.031) K/mm3 Absolute Neuts (auto) 12.2 H (1.3-6.7) K/mm3 Absolute Nucleated RBC 0.000 (0.0-0.012) K/mm3 Nucleated RBC % 0.0 (0.0-0.2) % PT 13.8 (11.1-14.7) Seconds INR 1.1 APTT 30.4 (22.3-36.8) Seconds D-Dimer 0.72 H (<0.48) ug/mL Sodium 141 (137-145) mmol/L Potassium 4.2 (3.4-5.0) mmol/L Chloride 109 H (98-107) mmol/L Carbon Dioxide 24 (22-30) mmol/L Anion Gap 8 (4-12) mmol/L BUN 24 H (7-17) mg/dL Creatinine 1.82 H (0.7-1.0) mg/dL Estim Creat Clear Calc 30 ml/min Estimated GFR 28 L (59 - ) Glucose 97 (65-110) mg/dL Lactic Acid 1.4 (0.7-2.0) mmol/L Calcium 9.0 (8.4-10.2) mg/dL Magnesium 1.8 (1.6-2.3) mg/dL Total Bilirubin 0.4 (0.2-1.3) mg/dL AST 29 (14-36) U/L ALT 19 (6-35) U/L Alkaline Phosphatase 69 (38-126) U/L Troponin I < 0.012 (0.000-0.034) ng/mL NT-Pro-B Natriuret Pep Pending Total Protein 7.1 (6.3-8.2) g/dL Albumin 4.2 (3.5-5.1) g/dL ABG Data ABG results: 12/05/24 05:29 VBG pH 7.346 VBG pCO2 42.6 VBG pO2 < 27.0 L VBG HCO3 22.8 L O2 Delivery Device Nasal cannula O2 Liters/Min 5.0 FiO2 40 Attestation: I personally reviewed and interpreted this ABG as follows: Interpretation: Normal VBG Imaging Data Attestation: I personally reviewed and interpreted this imaging study as follows: My impression: Pulmonary congestion with pleural effusion Critical Care Time Critical Care Time Critical Care Time: Yes Total Critical Care Time: 35 Discharge Plan Discharge Clinical Impression: Acute hypoxic respiratory failure, Pulmonary hypertension associated with systemic disorder, Fluid overload Patient Disposition: Still a Patient Condition: Stable Patient Language: Nepali Prescriptions: No Action citalopram 20 mg Tablet 40 mg PO DAILY metoprolol tartrate 25 mg Tablet 25 mg PO DAILY nifedipine 30 mg tablet extended release 24hr 30 mg PO DAILY mycophenolate mofetil 500 mg tablet 500 mg PO BID omeprazole 20 mg Capsule,Delayed Release(Dr/Ec) 20 mg PO DAILY Follow-up/Referrals: Kimberly,Elisa Chandra, INSTALLATION TECHNICIAN [Primary Care Provider] - Time of Disposition: 06:31
--- NOTE | 2024-12-05 05:25 | ECG_ITS ---
Test Date: 2024-12-05 05:25:37 Measurements Intervals Cameron Rate: 81 P: 50 CA: 164 QRS: 97 QRSD: 89 T: 4 QT: 387 QTc: 451 Interpretive Statements SINUS RHYTHM BORDERLINE RIGHT AXIS DEVIATION [QRS AXIS > 90] No previous ECG available for comparison Electronically Signed On 12-05-2024 14:03:46 CDT by Rl Gonzalez M.D.
[2024-12-05 05:36] LABS: Hematocrit 37.1 % (37.0-47.0); Hemoglobin 11.5 g/dL (12.0-15.0); Immature Granulocyte Percent A 0.5 % (0-0.5); Lymphocytes Absolute Auto 1.24 K/mm3 (0.9-3.2); Mean Corpuscular HGB Conc 31.0 g/dl (32-36); Mean Corpuscular Hemoglobin 26.9 pg (26-34); Mean Corpuscular Volume 86.7 fl (80-100); Nucleated Red Blood Cells Absolute Auto 0.000 K/mm3 (0.0-0.012); Nucleated Red Blood Cells Perc 0.0 % (0.0-0.2); Platelet Count Result 184 k/mm3 (150-375); Red Blood Count 4.28 M/mm3 (4.2-5.4); White Blood Count 14.6 K/mm3 (4.5-10.0)
[2024-12-05 05:48] LABS: Alanine Aminotransferase 19 U/L (6-35); Albumin Level 4.2 g/dL (3.5-5.1); Alkaline Phosphatase 69 U/L (38-126); Anion Gap 8 mmol/L (4-12); Aspartate Amino Transferase 29 U/L (14-36); Bilirubin,Total 0.4 mg/dL (0.2-1.3); Blood Urea Nitrogen 24 mg/dL (7-17); Calcium 9.0 mg/dL (8.4-10.2); Carbon Dioxide 24 mmol/L (22-30); Chloride 109 mmol/L (98-107); Estimated CRCL calculation 30 ml/min; Estimated Glomerular Filt Rate 28; Glucose 97 mg/dL (65-110); Magnesium 1.8 mg/dL (1.6-2.3); Potassium 4.2 mmol/L (3.4-5.0); Sodium 141 mmol/L (137-145); Total Protein 7.1 g/dL (6.3-8.2)
[2024-12-05 05:50] LABS: INR 1.1; Prothrombin Time 13.8 Seconds (11.1-14.7)
[2024-12-05 05:51] LABS: Partial Thromboplastin Time 30.4 Seconds (22.3-36.8)
[2024-12-05] MEDS: FUROSEMIDE INJ 40 MG/4 ML VIAL IV PUSH ×2 (05:52→17:31)
[2024-12-05 05:58] LABS: Fractional Inspired Oxygen 40 %; HCO3 VBG 22.8 mEq/l (24.0-30.0); Liters per Minute 5.0 LPM; PCO2 VBG 42.6 mmHg (42.0-48.0); PO2 VBG < 27.0 mmHg (35.0-45.0); pH VBG 7.346 (7.300-7.400)
[2024-12-05 05:59] LABS: Troponin I < 0.012 ng/mL (0.000-0.034)
--- OUTSIDE RECORDS SUMMARY | 2024-12-05 06:14 | XMS_ITS | Clinical Summary ---
Author Organization [facility] [employer] Address [address] [place] [address] Care Team Providers Care Gamemaster Name Role Phone Elisa Harris Primary Care Provider [phone] Source Comments [facility] [employer],non-owned Affiliates and Associated Physician Practices is amultiple site organization consisting of ambulatory clinics and hospital sitesin [place], [place], [place] and [place]. This disclosure is being madepursuant to the Care Everywhere program and may not contain all information available regarding this patient. Last updated 18.[facility] [employer] Allergies No known active allergies Medications * Be aware that medications may not be up to date on this document. Alwaysverify current medications with the patient. metoprolol succinate XL 24hr (TOPROL XL) 25 MG tablet Take 1 (one) tablet by mouth once daily 2 Active omeprazole (PriLOSEC) 20 MG capsule Take 1 (one) capsule by mouth 2 times daily, before breakfast and supper Active citalopram (CeleXA) 40 MG tablet Take 1 (one) tablet by mouth once daily Active albuterol HFA (Proventil; Ventolin; Proair) 108 (90 Base) MCG/ACT inhaler INHALE 2 PUFFS BY MOUTH EVERY 4 HOURS NEEDED FOR SHORTNESS OF BREATH 8.5 g 3 4 Active guaiFENesin ER 12hr (Mucinex) 600 MG tablet Take 1 (one) tablet by mouth every 12 hours Active tadalafil, PAH, (Adcirca) 20 MG tablet Take 2 (two) tablets by mouth once daily 5 Active macitentan (Opsumit) 10 MG tablet Take 1 (one) tablet by mouth once daily Active gentamicin (Garamycin) 0.1 % topical ointmentIndicat ions:Positive ROMEO (antinuclear antibody),Penelope ud's disease without gangrene,Skin ulcer of finger, limited to breakdown of skin (HCC) APPLY TOPICALLY TO SKIN LESION TWICE DAILY 30 g 2 5 Active selexipag (Uptravi) 400 MCG tablet Take 1 (one) tablet by mouth 2 times daily 5 Active mirtazapine (Remeron) 15 MG tabletIndicatio ns:Insomnia, unspecified type Take 1 (one) tablet by mouth at bedtime 90 tablet 4 5 Active NIFEdipine CR 24hr (Adalat CC) 30 MG tablet Take 1 (one) tablet by mouth once daily Take on an empty stomach. 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),Diffusion capacity of lung (dl), decreased,Scler oderma (HCC),Acute on chronic right heart failure (HCC) Take 0.5 (one-half) tablet by mouth once daily 180 tablet 4 5 Active potassium chloride ER (Klor-Con M) 20 MEQ tablet Take 1 (one) tablet by mouth once daily 90 tablet 4 5 Active cephalexin (Keflex) 500 MG capsule Take 1 (one) capsule by mouth 3 times daily for 10 days 30 capsule 5 11/22/19 Discontinu ed(Clinica l Decision) potassium chloride (Klor-Con) 20 MEQ packet Take 1 (one) packet by mouth once daily 90 packet 3 5 11/25/19 Discontinu ed(List Clean-Up) Active Problems Problem Noted Date Diagnosed Date Pulmonary hypertension associated with sarcoidos is 08/25/2024 Acute on chronic right heart failure 08/25/2024 PAH (pulmonary artery hypert ension) with connective [...] Encounters Date Type Department Care Team Description 11/24/2024 Orders Only [facility] - Pulmonology [address] [place] [address] Brandon Hudson MD 11/19/2024 Orders Only [facility] - Pulmonology [address] [place] [address] Brandon Hudson MD 11/19/2024 Orders Only [facility] - Pulmonology [address] [place] [address] Brandon Hudson MD 11/04/2024 Orders Only [facility] - Pulmonology [address] [facility] [place] [phone] Brandon Hudson MD 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); Diffusion capacity of lung (dl), decreased; Scleroderma (HCC); Acute on chronic right heart failure (HCC) 10/30/2024 Telephone [facility] - Pulmonology [address] [place] [phone] Flavia Caraballo, RN Follow-up 10/21/2024 Orders Only [facility] - Pulmonology [address] [place] [address], [place] [address] Brandon Hudson MD 10/21/2024 Telephone [facility] - Pulmonology [address] [place] [address], [place] [address] Flavia Caraballo, RN Returned Call (/) 10/13/2024 10:30 AM CDT Office Visit [facility] - Pulmonology [address] [place] [address], [place] [phone] Brandon Hudson MD Insomnia, unspecified type (Primary Dx) 10/13/2024 Travel 10/05/2024 Telephone [facility] - Pulmonology [address] [place] [address], [place] [phone] Flavia Caraballo RN 09/07/2024 Orders Only [facility] - Pulmonology [address] [place] [phone] Brandon Hudson MD Allergic rhinitis, unspecified seasonality, unspecified trigger from Last 3 Months Immunizations Immunization Administration Dates Next Due INFLUENZA VACCINE, TRIV. [...] drink = 0.6 oz pur e alcohol) OCC AUDIT-C Answer Date Recorded Q1: How often do you have a drink containing alcohol? Never 08/25/2024 Q2: How many drinks containi ng alcohol do you have on a typical day when you are drinking? Patient does not drink Q3: How often do you have si x or more drinks on one occasion? Never 08/25/2024 Overall Financial Resource Strain (CARDIA) Answe r Date Recorded How hard is it for you to pa y for the very basics like food, housing, medical care, and heating? Not hard at all 08/25/2024 PHQ-2 Answer Date Recorded Patient Health Questionnaire-2 Score 0 06/22/2024 [facility] - Occupational Stress Questionnaire Answer Date Recorded Do you feel stress - tense, restless, nervous, or anxious, or unable to sleep at night because your mind is troubled all the time - these days? Not at all 08/25/2024 Hunger Vital Sign Answer Date Recorded Within the past 12 months, y ou worried that your food would run out before you got the money to buy more. Never true 08/26/19 Within the past 12 months, t he food you bought just didn't last and you didn't have money to get more. Never true 08/25/2024 PRAPARE - Transportation Answer Date Re corded In the past 12 months, has l ack of transportation kept you from medical appointments or from getting medications? No 08/02 In the past 12 months, has l ack of transportation kept you from meetings, work, or from getting things needed for daily living? No 08/25/2024 Housing Stability Vital Sign Answer Leeroy e Recorded In the last 12 months, was t here a time when you were not able to pay the mortgage or rent on time? No 08/25/2024 In the past 12 months, how m any times have you moved where you were living? 0 08/25/2024 At any time in the past 12 m [facility], were you homeless or living in a fci (including now)? 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 Not on file Not on file Last Filed Vital Signs Vital Sign Reading Time Taken Comments Blood Pressure 113/69 10/13/2024 10:04 AM CDT Pulse 66 10/13/2024 10:04 AM CDT Temperature 36.8 C (98.2 F) 08/26/2024 11:40 AM CDT Respiratory Rate 17 10/13/2024 10:04 AM CDT Oxygen Saturation 95% 10/13/2024 10:04 AM CDT Inhaled Oxygen Concentration - - Weight 73.7 kg (162 lb 6.4 oz) 10/13/2024 10:04 AM CDT Height 162.6 cm (5' 4) 10/13/2024 10:04 AM CDT Body Mass Index 27.88 10/13/2024 10:04 AM CDT Plan of Treatment Upcoming Encounters Date Type Department Care Team (Late st Contact Info) Description 01/05/2025 10:30 AM CDT Office Visit [facility] - Cardiology [address] [id number] [place] [address] Dariana Malik, HUMAN RESOURCES TRAINER-DRAG CAR RACER [address] [facility] [address] [facility] [place] [address] 02/08/2025 2:00 PM CDT Office Visit [facility] - Rheumatology [facility] [facility], [place] [phone] Abrahan Reynaga MD [address] [place] [address] [place] [phone] 05/11/2025 8:00 AM COTTON GINNER HELPER Office Visit [facility] - Pulmonology [address] [place] [phone] Brandon Hudson MD [address] OF PULMONARY/[place] [address] Health Maintenance Due Date Last Done Comments COLOGUARD (AGES 45-75) - COLON CA SCREENING 1964 COLON MONITORING 1964 COLONOSCOPY - COLON CA SCREENING 1964 CT COLONOGRAPHY - COLON CA SCREENING 1964 Colorectal Cancer Screening 1964 FIT - COLON CA SCREENING 1964 FLEX SIG - COLON CA SCREENING 1964 MAMMOGRAM 1964 HIV SCREENING 09/17/1979 HEPATITIS C SCREENING 09/12/1982 DTAP/TDAP/TD VACCINES (1 - Tdap) 09/17/1983 PNEUMOCOCCAL VACCINE 50+ (1 of 2 - PCV) 09/17/1983 PAP SMEAR 1985 LIPID TESTING 02/17/2014 02/17/2009 ZOSTER VACCINE (1 of 2) 2014 COVID-19 VACCINE ( - 2023- season) 2024 03/10/2021, 06/10/2020, 05/20/2020 Respiratory Syncytial Virus (RSV) Vaccine Pt: or over 60 yrs (1 - Risk 60-74 years 1-dose series) 2024 INFLUENZA VACCINE (#1) 2025 7, 03/24/2015, 03/29/2014 SCREENING FOR DIABETES 08/27/2027 5, 08/25/2024, 05/18/2024, Additional history exists DEPRESSION SCREENING Completed 06/22/2024, 02/19/2023, 10/19/2021 HEPATITIS B VACCINE Aged Out No longe r eligible based on patient's age to complete this topic HIB VACCINE Aged Out No longer eligi [...] Procedure Name Priority Date/Time Associated Diagnosis Comments RENAL FUNCTION PANEL AM Draw 08/26/2024 4:26 AM CDT LIPID PROFILE Routine 02/17/2009 11:48 AM CDT Htn from Last 3 Months or Most Recently Relevant to Health Maintenance Results * (ABNORMAL) RENAL FUNCTION PANEL (08/26/2024 4:26 AM CDT) BUN 19 7 - 26 mg/dL 08/26/2024 5:04 AM [facility] Creatinine 1.34(H) 0.56 - 0.96 mg/dL 08/26/2024 5:04 AM [facility] Sodium 143 136 - 145 mmol/L 08/26/2024 5:04 AM [facility] Potassium 3.4(L) 3.5 - 4.5 mmol/L 08/26/2024 5:04 AM [facility] Chloride 110(H) 98 - 107 mmol/L 08/26/2024 5:04 AM [facility] CO2 21(L) 22 - 29 mmol/L 08/26/2024 5:04 AM [facility] Glucose 101(H) 70 - 99 mg/dL 08/26/2024 5:04 AM [facility] Albumin 3.8 3.4 - 5.0 g/dL 08/26/2024 5:04 AM [facility] Calcium 9.0 8.4 - 10.2 mg/dL 08/26/2024 5:04 AM [facility] Phosphorus 3.9 2.9 - 5.1 mg/dL 08/26/2024 5:04 AM [facility] Anion Gap 12 6 - 16 08/26/2024 5:04 AM [facility] BUN/Creatinine Ratio 14 7 - 23 08/26/2024 5:04 AM [facility] Osmolality Calculated 298(H) 275 - 295 mOsm/kg 08/26/2024 5:04 AM [facility] eGFR by CKD-EPI 46(L) >=90 mL/min/1.7 3 m2 08/26/2024 5:04 AM [facility] Blood BLOOD SPECIMEN / Unknown Lab Venipuncture / Unknown 08/26/2024 4:26 AM CDT 08/26/2024 4:39 AM CDT Lydia Rivera MD LAB - CHEMISTRY ORDERABLES Fi nal Result [facility] [address] [place] [address], [facility] [phone] * (ABNORMAL) LIPID PROFILE (02/17/2009 11:48 AM [...] PM CDT Narrative Resulting Agency Comment [facility] [place] [address] [facility] [id number] Faviola Mandel MD LAB - CHEMISTRY ORDERABLES Fin al Result Performing Organization Address City/[facility]/ZIP Co de Phone Number [facility] ACCOUNT BILL [address] [place] [address] from Last 3 Months or Most Recently Relevant to Health Maintenance Insurance [facility] Advance Directives * Full Code (Latest Code Status on File) Date Activated Date Inactivated Comments 08/25/2024 4:54 PM 08/26/2024 4:27 PM * Full Code Date Activated Date Inactivated Comments 05/17/2024 9:51 PM 05/20/2024 3:01 PM Care Teams Gamemaster Relationship Specialty Start Date End Date Elisa Harris [address] [place] [phone] PCP - General 05/25/24
--- OUTSIDE RECORDS SUMMARY | 2024-12-05 06:14 | XMS_ITS | Encounter Summary ---
Author Organization [facility] Health Address [address] [place] [address] Care Team Providers Care Manual Winder Name Role Phone Kimberly Elisa Primary Care Provider [phone] Encounter Details Date Type Department Care Team (Late st Contact Info) Description 10/05/2024 Telephone [facility] - Pulmonology [address] [facility] [place] [address] Flavia Caraballo, RN Social History Tobacco Use Types Packs/Day Years Used Date Smoking Tobacco: Former Cigarettes Q uit: 06/2022 Smokeless Tobacco: Never Alcohol Use Standard Drinks/Week Comments Yes 0 [...] Recorded Patient Health Questionnaire-2 Score 0 06/22/2024 [facility] of Occupat ional Health - Occupational Stress [...] any time in the past 12 m [facility], were you homeless or living in a detention (including now)? 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 Answer Date of Assessment Author No 08/25/2024 8:37 PM Maria Del Carmen Gao RN * Is person blind or have serious difficulty seeing? Answer Date of Assessment Author No 08/25/2024 8:37 PM Maria Del Carmen Gao RN * Does person have serious difficulty walking/climbing stairs? Answer Date of Assessment Author No 08/25/2024 8:37 PM Maria Del Carmen Gao RN * Does person have difficulty dressing/bathing? Answer Date of Assessment Author No 08/25/2024 8:37 PM CDT Maria Del Carmen Beltran RN * Does person have difficulty doing errands alone? Answer Date of Assessment Author No 08/25/2024 8:37 PM KIMBERLYT Maria Del Carmen Beltran RN documented as of this encounter Mental Status * Does person have difficulty concentrating/remembering/making decisions? Answer Entry Date Author No 08/25/2024 8:37 PM CDT Maria Del Carmen Beltran RN documented in this encounter Plan of Treatment Upcoming Encounters Date Type Department Care Team (Late st Contact Info) Description 01/05/2025 10:30 AM CDT Office Visit [facility] - Cardiology [address] [id number] [place] [address] Dariana Malik APRN-CHEMICAL ENGRAVER [address] [place] [address] 02/08/2025 2:00 PM CDT Office Visit [facility] - Rheumatology [address] [place] [address], [place] [phone] Abrahan Reynaga MD [facility] [facility] 2L [place] [phone] 05/11/2025 8:00 AM ATTENDANT HONOR BAR Office Visit [facility] - Pulmonology [address] [place] [address], [place] [phone] Brandon Hudson MD [facility] 2L DIV OF PULMONARY/[place] [address] documented as of this encounter Visit Diagnoses Not on filedocumented in this encounter Care Teams Manual Winder Relationship Specialty Start Date End Date Elisa Harris [address] [place] [phone] PCP - General 05/25/24 documented as of this encounter
[2024-12-05 06:30] LABS: NT Pro B Type Natriuretic Pept 724 pg/mL (19.9-100)
--- NOTE | 2024-12-05 07:14 | PC.NURSE ---
Full bedside report given to Jeny Ferguson RN & Christina RN. No questions at this time.
--- NOTE | 2024-12-05 07:24 | PC.NURSE ---
Bedside report given to this RN by Nazia MORRISON. All questions answered at bedside. Pt. assisted with using bedpan d/t oxygen saturation dropping with movement and talking.
--- NOTE | 2024-12-05 08:30 | ADMGEN ---
This patient, Fouzia Lan, was admitted to IMU Room 210-01. Patient/family oriented to hospital policies and general routines including ID bracelet, bed and alarms, visiting hours, pain management, procedures, bathroom and other care routines, personal items, smoking policy, room service/diet, and visiting hours. Information on how to activate the Rapid Response Team has been discussed. Patient/Family are encouraged to report perceived risks to care and to ask questions if they do not understand what they are told or what they should do.
--- NOTE | 2024-12-05 09:39 | P.HP_ITS ---
H&P: HPI History of Present Illness Date/Time: 12/05/24 09:39 Chief Complaint: dyspnea Narrative: 59-year-old female was diagnosed with scleroderma about 30 years ago. She presented with painful ulcers on her fingers and Raynaud's phenomenon. Since then she has developed interstitial lung disease pulmonary hypertension chronic kidney disease and esophageal disease. She is treated by Dr. Abrahan Reynaga (Rheum) and Dr. Brandon Hu (Pulm) at [facility] for her scleroderma and lung disease. She was hospitalized in May [address] [facility] with right heart failure. She was hospitalized again with pulmonary edema and right heart failure in August of 2024 and had a right heart catheterization performed at [facility]. Her pressures had decreased from 59 to 36 with treatment. Since her August discharge she has been taking furosemide 40 mg daily. 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 She presented to [facility] early this morning via EMS due to awakening with severe shortness of breath. She was unable to walk to the bathroom without severe shortness of breath. She usually sleeps with 2 L of oxygen and maintain saturations in the 90s with that. However saturation dropped to the 70s when she was moving about without oxygen. Due to increasing shortness of breath the day prior she had taken additional furosemide 40 mg. She denied chest pain palpitations syncope or presyncope. She denied bowel or bladder changes. No abnormal bleeding. No current ankle swelling. Review of Systems Review of Systems: All systems reviewed & are unremarkable except as noted in HPI and below [facility] Past Medical History Medical History (Updated 12/05/24 @ 10:34 by Jin Gao MD) Chronic kidney disease, stage 3b Right heart failure due to pulmonary hypertension Cardiac arrhythmia Solitary kidney Scleroderma Raynaud's disease without gangrene Polyp, sigmoid colon Granuloma of intestine Mitral valve prolapse Hypertension Family History Family History Sibling Depression Mother Hypertension Colon polyp Family history of malignant neoplasm of breast in first degree relative Father Family history of lung cancer Social History Social History Smoking packs per day: 0.5 Smoking cigarettes per day: 10.0 Years smoked: 30 Smoking pack-years: 15.00 Smoking status: Former smoker Tobacco type: cigarettes Smoking end date: 02/02/24 Alcohol intake: current Drinks per week: 10 Living arrangements: with family Spiritual care concerns: No Meds Home Medications and Allergies Home Medications ?Medication ?Instructions ?Recorded ?Confirmed ?Type nifedipine 30 mg tablet,extended 30 mg PO DAILY 08/28/23 12/05/24 History release 24 hr citalopram 40 mg tablet 40 mg PO DAILY 12/05/24 12/05/24 History furosemide 40 mg tablet 40 mg PO DAILY 12/05/24 12/05/24 History macitentan 10 mg tablet (Opsumit) 10 mg PO DAILY 12/05/24 12/05/24 History metoprolol succinate 25 mg 25 mg PO DAILY 12/05/24 12/05/24 History tablet,extended release 24 hr mirtazapine 15 mg tablet 15 mg PO DAILY 12/05/24 12/05/24 History potassium chloride 20 mEq 20 meq PO DAILY 12/05/24 12/05/24 History tablet,extended release(part/cryst) selexipag 200 mcg tablet (Uptravi) 200 mcg PO DAILY 12/05/24 12/05/24 History selexipag 800 mcg tablet (Uptravi) 800 mcg PO DAILY 12/05/24 12/05/24 History tadalafil (pulm. hypertension) 20 40 mg PO DAILY 12/05/24 12/05/24 History mg tablet (pulmonary hypertension) Allergies Allergy/AdvReac Type Severity Reaction Status Date / Time No Known Allergies Allergy Verified 08/28/23 08:51 Vital Signs Vital Signs - 24 hr 12/05/24 05:15 12/05/24 05:23 12/05/24 05:23 Temperature Pulse Rate 87 84 Respiratory Rate 23 H Blood Pressure 151/94 H Pulse Oximetry 96 96 Oxygen Delivery Nasal Cannula Nasal Cannula Oxygen Flow Rate 4 4 12/05/24 05:23 12/05/24 07:01 12/05/24 07:15 Temperature 98.6 F Pulse Rate 87 79 86 Respiratory Rate 19 22 H 21 H Blood Pressure 151/94 H 129/71 Pulse Oximetry 97 99 96 Oxygen Delivery Oxygen Flow Rate Exam Narrative: HEENT: PERRL, sclerae nonicteric, pharyngeal mucosa pink and intact NECK: No JVD, adenopathy, or thyromegaly CHEST: Clear to auscultation with normal effort HEART: NL S1/S2, regular, no murmur, no audible gallops ABDOMEN: BS+, soft, nontender, no mass, no bruits EXTREMITIES: No cyanosis, edema, or clubbing NEUROLOGIC: CN intact and symmetric to inspection MUSCULOSKELETAL: Tone and strength symmetric PSYCH: Alert. Oriented to person, place, and time H&P: Results Labs Labs: Short CBC 12/05/24 Range/Units 05:29 WBC 14.6 H (4.5-10.0) K/mm3 Hgb 11.5 L (12.0-15.0) g/dL Hct 37.1 (37.0-47.0) % Plt Count 184 (150-375) k/mm3 BMP 12/05/24 05:29 Sodium 141 Potassium 4.2 Chloride 109 H Carbon Dioxide 24 BUN 24 H Creatinine 1.82 H Glucose 97 Calcium 9.0 Cardiac Enzymes 12/05/24 Range/Units 05:29 Troponin I < 0.012 (0.000-0.034) ng/mL Liver Function 12/05/24 Range/Units 05:29 Total Bilirubin 0.4 (0.2-1.3) mg/dL AST 29 (14-36) U/L ALT 19 (6-35) U/L Alkaline Phosphatase 69 (38-126) U/L Albumin 4.2 (3.5-5.1) g/dL Imaging Chest x-ray: Attestation: I personally reviewed and interpreted this imaging study as follows: My impression: Cardiomegaly, increased interstitial markings, possible early pulmonary edema. Radiologist's impression: Early infiltrate within the left mid to lower lung field. Assessment and Plan Assessment and plan (1) Acute hypoxic respiratory failure: Code(s): J96.01 - Acute respiratory failure with hypoxia Status: Acute Assessment and Plan: * Likely due to acute on chronic right heart failure * Continue diuresis with furosemide at 40 mg IV bid while monitoring renal function daily * Consider discharge on higher dose of po furosemide if renal function allows * 12/[address] Hudson regarding possible discharge meds (2) Pulmonary hypertension associated with systemic disorder: Code(s): I27.29 - Other secondary pulmonary hypertension Status: Acute Assessment and Plan: * Continue home regimen (3) Right heart failure due to pulmonary hypertension: Code(s): I27.29 - Other secondary pulmonary hypertension; I50.810 - Right heart failure, unspecified Status: Acute Assessment and Plan: * Continue home meds, excepting po furosemide (4) Scleroderma: Code(s): M34.9 - Systemic sclerosis, unspecified Status: Acute Assessment and Plan: * Continue home regimen (5) Chronic kidney disease, stage 3b: Code(s): N18.32 - Chronic kidney disease, stage 3b Status: Acute Assessment and Plan: * Creatinine 12/05 1.82 * Baseline creatinine 10/30/2024 1.72 * Monitor during diuresis (6) Hypertension: Code(s): I10 - Essential (primary) hypertension Status: Acute Assessment and Plan: * 12/05 129/71 after IV furosemide Quality VTE Prophylaxis VTE prophylaxis: pharmacologic ordered Hospitalist MIPS Advance Care Plan I have confirmed that the patient's Advanced Care Plan is present, code status is documented, or surrogate decision maker is listed in patient medical record.: Yes Medication Reconciliation The patient is not eligible for med reconciliation; the patient is in a emergent medical situation where delaying treatment would jeopardize the patients health.: Yes
--- NOTE | 2024-12-05 10:07 | PHAR ---
Drug Name:?Opsumit 10MG MACITENTAN Color:?WhiteShape:?BiconvexImprint:??10?;?10Imprint Code Description:?Debossed with 10 on both sidesForm:?Film-Coated Oral Tablet Drug Name:?Tadalafil 20MG Color:?Brown Shape:?Capsule-shape Imprint:??Cipla?;?526 Form:?Oral Tablet Drug Name:?Uptravi 800MG SELEXIPAG Color:?GreenShape:?CircleImprint:??8Form:?Oral Tablet UPTRAVI 200MG (SELEXIPAG) UNOPENED BOTTLE
[2024-12-05] MEDS: SELEXIPAG 200 MCG 200 EACH PO (11:53)
[2024-12-05] MEDS: SELEXIPAG 800 MCG 800 EACH PO (11:53)
[2024-12-05] MEDS: TADALAFIL 20 MG 40 EACH PO (11:53)
[2024-12-05] MEDS: MACITENTAN 10 MG 10 EACH PO (11:53)
[2024-12-05] MEDS: POTASSIUM CHLORIDE 20 MEQ ER TABLET PO (12:06)
[2024-12-05] MEDS: METOPROLOL SUCCINATE EXT REL 25 MG TABCR PO (12:06)
[2024-12-05] MEDS: CITALOPRAM HYDROBROMIDE 20 MG TABLET 40 MG PO (12:06)
[2024-12-05] MEDS: MIRTAZAPINE 7.5 MG TABLET PO (20:45)
[2024-12-06] VITALS (14 sets, daily range): BP systolic 99–120; BP diastolic 50–64; PULSE 59–84; RESP 16–20; TEMP 36.5–37.1; O2SAT 87–100
[2024-12-06 01:00] LABS: Add Urine Microscopic? YES; Appearance Urine Clear (Clear); Glucose Urine UA Negative (Negative); Leukocyte Esterase Ur 2+ LEU/UL (Negative); Need Manual Microscopic Reviewed; Nitrate Urine Negative (Negative); Non Pathogenic Casts 0-2; Specific Grav Ur 1.006 (1.001-1.035)
[2024-12-06 05:02] LABS: Albumin Level 3.8 g/dL (3.5-5.1); Anion Gap 7 mmol/L (4-12); Blood Urea Nitrogen 26 mg/dL (7-17); Calcium 8.9 mg/dL (8.4-10.2); Carbon Dioxide 26 mmol/L (22-30); Chloride 104 mmol/L (98-107); Estimated CRCL calculation 33 ml/min; Estimated Glomerular Filt Rate 32; Glucose 108 mg/dL (65-110); Potassium 3.7 mmol/L (3.4-5.0); Sodium 137 mmol/L (137-145)
[2024-12-06 05:32] LABS: Thyroid Stimulating Hormone Reflex 3.240 uIU/mL (0.465-4.68)
--- NOTE | 2024-12-06 08:01 | P.DS_ITS ---
DS: Admitting Diagnosis Discharge Date Admitting Diagnosis Acute hypoxic respiratory failure secondary to acute on chronic cor pulmonale with secondary left heart failure DS: Discharge Diagnosis Discharge Diagnosis (1) Acute hypoxic respiratory failure: Code(s): J96.01 - Acute respiratory failure with hypoxia Status: Acute Assessment and Plan: * Likely due to acute on chronic right heart failure with secondary left heart failure (BNP 724) * Continue diuresis with furosemide at 40 mg IV bid while monitoring renal function daily * Consider discharge on higher dose of po furosemide if renal function allows * 12/[address] Hudson regarding possible discharge meds and discussed later that morning * 12/05 Feeling good without HEADLEY on R/A (2) Pulmonary hypertension associated with systemic disorder: Code(s): I27.29 - Other secondary pulmonary hypertension Status: Acute Assessment and Plan: * Continue home regimen (3) Right heart failure due to pulmonary hypertension: Code(s): I27.29 - Other secondary pulmonary hypertension; I50.810 - Right heart failure, unspecified Status: Acute Assessment and Plan: * Continued home meds, excepting po furosemide * 12/06 Discharge on increased po furosemide (4) Scleroderma: Code(s): M34.9 - Systemic sclerosis, unspecified Status: Acute Assessment and Plan: * Continue home regimen (5) Chronic kidney disease, stage 3b: Code(s): N18.32 - Chronic kidney disease, stage 3b Status: Acute Assessment and Plan: * Creatinine 12/05 1.82, 12/06 1.62 * Baseline creatinine 10/30/2024 1.72 * F/u lab in 1-2 weeks (6) Hypertension: Code(s): I10 - Essential (primary) hypertension Status: Acute Assessment and Plan: * 12/05 129/71 after IV furosemide, 12/06 120/62 DS: Summary Hospital Course Hospital Course: Fouzia was admitted December 05 in the a.m. due to increasing shortness of breath over the past couple of days. She was unable to walk to the bathroom without severe dyspnea and unable to get a deep breath even while at rest. But she presented to the emergency department by EMS. There she was found to have probable pulmonary infiltrate on chest x-ray the clinically was due to early pulmonary edema. BNP was 724. TSH was normal. Creatinine was 1.8 to. Baseline of 1.72. White count was 14,600 with 83.7% neutrophils and no immature forms. Venous blood gas showed pH 7.346, pCO2 42.6, PO2 less than 27 on nasal cannula at 5 L. after 1 dose of furosemide IV in the emergency department she began to improve and oxygen was titrated down to 2 L. She was treated overnight with oxygen at 2 liters/minute by nasal cannula and IV furosemide 40 mg twice daily. By the morning after admission she was on room air and comfortable walking about in her room. She wished to go home. Home oxygen evaluation was performed. She was to continue using oxygen at 2 liters/minute by nasal cannula at night. Time Spent with Patient Time attestation: Total time spent providing and/or coordinating discharge services: Exam Narrative: HEENT: PERRL, sclerae nonicteric, pharyngeal mucosa pink and intact NECK: No JVD, adenopathy, or thyromegaly CHEST: Clear to auscultation with normal effort HEART: NL S1/S2, regular, no murmur, no audible gallops ABDOMEN: BS+, soft, nontender, no mass, no bruits EXTREMITIES: No cyanosis, edema, or clubbing NEUROLOGIC: CN intact and symmetric to inspection MUSCULOSKELETAL: Tone and strength symmetric PSYCH: Alert. Oriented to person, place, and time DS: Data Data Completed and Pending Labs on day of discharge: Labs from last 24 hours 12/06/24 12/06/24 03:57 00:39 Sodium 137 Potassium 3.7 Chloride 104 Carbon Dioxide 26 Anion Gap 7 BUN 26 H Creatinine 1.62 H Estim Creat Clear Calc 33 Estimated GFR 32 L Glucose 108 Calcium 8.9 Phosphorus 4.5 Albumin 3.8 TSH (Reflex) 3.240 Urine Color Yellow Urine Appearance Clear Urine pH 5.5 Ur Specific [place] 1.006 Urine Protein Negative Urine Glucose (UA) Negative Urine Ketones Negative Ur Blood (Man) Negative Urine Nitrate Negative Urine Bilirubin Negative Urine Urobilinogen 0.2 Add Ur Microanalysis Reviewed Leukocyte Esterase Rfl 2+ H Urine RBC 0-2 Urine WBC 21-50 H Ur Squamous Epith Cells None seen Urine Bacteria None seen Urine Casts 0-2 Discharge Plan Discharge Discharging Clinician: Jin Gao Patient Disposition: Home Activity: as tolerated Diet: heart healthy and low sodium Patient Language: Khmer Stand Alone Forms: General Discharge Information Follow-up/Referrals: Pedro,Elisa Chandra, CONCRETE PIPE PLANT SUPERVISOR [Primary Care Provider] - Call for Appointment Discharge Medications: New acetaminophen 325 mg Tablet 650 mg PO Q4H PRN (Reason: Mild Pain (1-3) Or Fever) Qty: 60 0RF Continued nifedipine 30 mg tablet extended release 24hr 30 mg PO DAILY citalopram 40 mg tablet 40 mg PO DAILY metoprolol succinate 25 mg tablet extended release 24 hr 25 mg PO DAILY Opsumit 10 mg tablet 10 mg PO DAILY Uptravi 800 mcg tablet 800 mcg PO DAILY tadalafil (pulm. hypertension) 20 mg tablet 40 mg PO DAILY Uptravi 200 mcg tablet 200 mcg PO DAILY loratadine [Claritin] 10 mg tablet 10 mg PO DAILY Changed potassium chloride 20 mEq tablet,ER particles/crystals 20 meq PO BID Qty: 60 0RF furosemide 40 mg tablet 40 mg PO BID Qty: 60 0RF Discontinued mirtazapine 15 mg tablet 15 mg PO DAILY Other Ambulatory Orders: Renal Function Panel (Routine) Timeframe: 8 Days Location: Determined by Patient Ordered By: Jin Gao Date of admission: 12/05/24 06:26 Primary Care Provider: KimberlyElisa Admitting Provider: nOi Trujillo Attending physician on admission: Oni Trujillo Condition: Stable
[2024-12-06] MEDS: FUROSEMIDE INJ 40 MG/4 ML VIAL IV PUSH ×2 (09:06→15:33)
[2024-12-06] MEDS: LORATADINE 10 MG TABLET PO (09:06)
[2024-12-06] MEDS: CITALOPRAM HYDROBROMIDE 20 MG TABLET 40 MG PO (09:07)
[2024-12-06] MEDS: METOPROLOL SUCCINATE EXT REL 25 MG TABCR PO (09:07)
[2024-12-06] MEDS: SELEXIPAG 200 MCG 200 EACH PO (09:08)
[2024-12-06] MEDS: POTASSIUM CHLORIDE 20 MEQ ER TABLET PO ×2 (09:08→15:33)
[2024-12-06] MEDS: SELEXIPAG 800 MCG 800 EACH PO (09:08)
[2024-12-06] MEDS: MACITENTAN 10 MG 10 EACH PO (09:08)
[2024-12-06] MEDS: TADALAFIL 20 MG 40 EACH PO (09:08)
--- NOTE | 2024-12-06 17:24 | PCRTNOTE ---
HOME O2 EVALUATION COMPLETE. PT. REQUIRES 1LITER OXYGEN WITH ACTIVITY. PT. WEARS HOME OXYGEN AT NIGHT AND STATES ALREADY HAS A PORTABLE CONCENTRATOR AND REQUIRED OXYGEN EQUIPMENT AT HOME THROUGH [facility]. R.N. NOTIFIED.
== END 2024-12-06 15:45 | disposition home or self-care (01) | DRG 291 ==
LOC: ANHED 06:31 → ANHIMU 12-06 08:14
PROVIDERS: Admitting Provider Internal Medicine; Emergency Provider Student in an Organized Health Care Education/Training Program; Visit Provider Internal Medicine
DX: I13.0 Hypertensive heart and chronic kidney disease with heart failure and stage 1 through stage 4 chronic kidney disease, or unspecified chronic kidney disease (principal); J96.01 Acute respiratory failure with hypoxia; I50.813 Acute on chronic right heart failure; N18.32 Chronic kidney disease, stage 3b; I27.81 Cor pulmonale (chronic); M34.9 Systemic sclerosis, unspecified; I73.00 Raynaud's syndrome without gangrene; I27.29 Other secondary pulmonary hypertension; Z87.891 Personal history of nicotine dependence
CPT/HCPCS: 36415; 71045; 80053; 80069; 81001; 82803; 83605; 83735; 83880; 84443; 84484; 85025; 85380; 85610; 85730; 87086; 93005; 94618; 96374; 96375; 99285; A9270; J1650; J1938

== ENCOUNTER 2025-01-18 12:51 | Outpatient (CLI) | payer OTHER, SELFPAY ==
[2025-01-18 13:23] LABS: Hematocrit 40.2 % (37.0-47.0); Hemoglobin 12.7 g/dL (12.0-15.0); Immature Granulocyte Percent A 0.3 % (0-0.5); Lymphocytes Absolute Auto 1.27 K/mm3 (0.9-3.2); Mean Corpuscular HGB Conc 31.6 g/dl (32-36); Mean Corpuscular Hemoglobin 27.8 pg (26-34); Mean Corpuscular Volume 88.0 fl (80-100); Nucleated Red Blood Cells Absolute Auto 0.000 K/mm3 (0.0-0.012); Nucleated Red Blood Cells Perc 0.0 % (0.0-0.2); Platelet Count Result 173 k/mm3 (150-375); Red Blood Count 4.57 M/mm3 (4.2-5.4); White Blood Count 6.3 K/mm3 (4.5-10.0)
--- OUTSIDE RECORDS SUMMARY | 2025-01-18 13:27 | XMS_ITS | Encounter Summary ---
Author Organization [facility] Health Address [address] [facility] [place] [address] Care Team Providers Care Technology Professional Name Role Phone Kimberly [place] Primary Care Provider [phone] Encounter Details Date Type Department Care Team (Late st Contact Info) Description 10/05/2024 Telephone [facility] - Pulmonology [address] [facility] [place] [address] Flavia Caraballo, RN Social History [...] Recorded Patient Health Questionnaire-2 Score 0 06/22/2024 [facility] [place] of Occupat ional Health - Occupational Stress [...] any time in the past 12 m [facility], were you homeless or living in a alf (including now)? No 08/25/2024 Comments No Sex and Gender Information Value Date Recorded Sex Assigned at Not on file Legal Sex Female 6:03 AM LINE FIXER Gender Identity Not on file Sexual Orientation [...] 8:37 PM Maria Del Carmen Gao RN documented as of this encounter Mental Status * Does person have difficulty concentrating/remembering/making decisions? Answer Entry Date Author No 08/25/2024 8:37 PM CDT Maria Del Carmen Beltran RN documented in this encounter Plan of Treatment Upcoming Encounters Date Type Department Care Team (Late st Contact Info) Description 02/05/2025 8:00 AM CDT Office Visit [facility] - Pulmonology [address] [place] [phone] Brandon Hudson MD [address] [place] [address] 2L DIV OF PULMONARY/[place] [phone] 02/08/2025 2:00 PM CDT Office Visit [facility] - Rheumatology [address] [place] [phone] Abrahan Reynaga MD [address] [place] [address] 2L [place] [phone] 04/26/2025 11:00 AM LINE FIXER Office Visit [facility] - Cardiology [address] [facility], [address] [address] Dariana Malik, CLINICAL RESEARCH MANAGER-CLOTH BIN PACKER [phone] [place] [address] 05/11/2025 8:00 AM LINE FIXER Office Visit [facility] - Pulmonology [address] [place] [phone] Brandon Hudson MD [facility] 2L DIV OF PULMONARY/[place] [address] documented as of this encounter Visit Diagnoses Not on filedocumented in this encounter Care Teams Technology Professional Relationship Specialty Start Date End Date Elisa Harris [address] [place] [phone] PCP - General 05/25/24 documented as of this encounter
--- OUTSIDE RECORDS SUMMARY | 2025-01-18 13:27 | XMS_ITS | Encounter Summary ---
Author Organization [facility] Health Address [address] [place] [address] Care Team Providers Care Unloading Checker Name Role Phone Kimberly Elisa Primary Care Provider Encounter Details Date Type Department Care Team (Late st Contact Info) Description 01/18/2025 11:00 AM CDT Office Visit [facility] - Cardiology [address], [address] [id number] [place] [address] Dariana Malik APRN-FELT CARBONIZER [id number] [place], [place] [id number] Primary hypertension (Primary Dx); Atherosclerosis of aorta; 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 Answer Date of Assessment Author No 08/25/2024 8:37 PM CDT Maria Del Carmen Beltran RN * Is person blind or have serious difficulty seeing? Answer Date of Assessment Author No 08/25/2024 8:37 PM CDT Maria Del Carmen Beltran RN * Does person have serious difficulty walking/climbing stairs? Answer Date of Assessment Author No 08/25/2024 8:37 PM CDT Maria Del Carmen Beltran RN * Does person have difficulty dressing/bathing? Answer Date of Assessment Author No 08/25/2024 8:37 PM CDT Maria Del Carmen Beltarn RN * Does person have difficulty doing errands alone? Answer Date of Assessment Author No 08/25/2024 8:37 PM CDT Maria Del Carmen Beltran RN documented as of this encounter Mental Status * Does person have difficulty concentrating/remembering/making decisions? Answer Entry Date Author No 08/25/2024 8:37 PM CDT Maria Del Carmen Beltran RN documented in this encounter Patient Instructions * Patient Instructions* Dariana Malik APRN-CNP - 01/18/2025 11:30 AM CDT Glad you are feeling better. Start farxiga 10 mg once daily. Start aspirin 81 mg once daily. Check CMP in 1 month. Will also check lipid profile. LDL goal <70 less than 55. Agree with sleep study. See if home sleep study testing is an option. Will schedule Echo today. Consider cardiomems monitoring. Follow up with pulmonary and rheumatology as directed Low salt diet less than 2g daily. 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 Small pericardial effusion per TTE 05/2024. Appears she has had this going on since at least 2022. Euvolemic on exam today. Reports improved breathing since lasix increased. NYHA II. Reports admitted at OSH August and December 2024 for volume overload. Stress echo 2022 no evidence of ischemia. - continue nifedipine 60 mg qd, metoprolol succinate 25 mg qd - diuresis: lasix 40 mg bid, Kcl 20 meQ qd - add SGLT2i with farxiga 10 mg qd - check CMP in 1 mo - low salt diet <2g daily - discussed evaluation for cardiomems. Provided her pamphlet today - TTE ordered by pulm, will schedule today - follow up with rheumatology, pulmonary as directed 6. Aortic atherosclerosis Seen on prior CT imaging. Denies anginal s/s. -add aspirin 81 mg qd for secondary prevention ASCVD -check lipid profile with next lab draw. LDL goal <70 ideally 55. Will add statin pending results. 7. Mitral valve prolapse TTE 09/2024 with trace MR. -continue to monitor F/u in 3 mo or sooner PRN Chief Complaint: Annual follow up History of Present Illness: Fouzia Lan is a 59 year old female with PMH significant for MVP, CVA (at 12 years old), Former Tobacco use (quit 2022), CKD, HTN, Scleroderma, Chronic hypoxic respiratory failure, Raynaud's, GERD who presents for annual follow up. Patient used to follow in office with Dr. Valencia. She was last seen in office 07/2024 by myself. No changes made at last visit. Today she states she is feeling well. Torsemide stopped in August and started on lasix. She reports she was hospitalized in August 2024 then again in December 2024 at [place] due to volume overload. Feelsher breathing has improved since increasing lasix. Sleep study recommended which she has not completed yet. She has been working for the past 6 weeks and has not needed to call off. 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 She denies chest pain/pressure, shortness of breath at rest, dizziness, lightheadedness, pre syncope, syncope, palpitations, PND. LE swelling has been manageable. Wears compression socks while working. Follows closely with Dr. Hudson, pulmonary. She was admitted at [facility] 05/17-05/20 2024 after p/w worsening dyspnea. Patient has longstanding hx of dyspnea over the last year. Surface echo obtained showed new right ventricular dysfunction and dilated IVC concerning for pulmonary hypertension. Pulmonology and Rheumatology were consulted. Given lasix and had about 3L UOP which also improved her dyspnea. Discharged with torsemide 10 mg qd, then decreased to 5 mg daily. Instructed to obtain repeat labs in 2 weeks at Rheumatology visit 06/22. Outpatient [facility] with Dr. Hudson 05/29 demonstrated severe pre capillary PH consistent with severe CTD-PAH. ROS is negative except for stated in the HPI. 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 Gen: A&Ox4, NAD, Appears stated age. HEENT: NCAT Neck: supple, no bruits Resp: CTAB, no wheezes or crackles CV: RRR, no murmur, no JVD Abd: soft, no TTP Ext: no LE edema Pulses: 2+ radial BL Skin: no lesions on exposed skin. Telangiectasias face Psych: appropriate mood/affect Current Outpatient Medications Medication Sig Dispense Refill albuterol HFA (Proventil; Ventolin; Proair) 108 (90 Base) MCG/ACT inhaler INHALE 2 PUFFS BY MOUTH EVERY 4 HOURS NEEDED FOR SHORTNESS OF BREATH 8.5 g 3 aspirin (Aspirin) 81 MG chew tablet Take 1 (one) tablet by mouth once daily (chew and swallow) 90 tablet 3 citalopram (CeleXA) 40 MG tablet Take 1 (one) tablet by mouth once daily dapagliflozin propanediol (Farxiga) 10 MG tablet Take 1 (one) tablet by mouth every morning 90 tablet 3 furosemide (Lasix) 40 MG tablet Take 1 (one) tablet by mouth 2 times daily 180 tablet 3 gentamicin (Garamycin) 0.1 % topical ointment APPLY TOPICALLY TO SKIN LESION TWICE DAILY 30 g 2 guaiFENesin ER 12hr (Mucinex) 600 MG tablet Take 1 (one) tablet by mouth every 12 hours macitentan (Opsumit) 10 MG tablet Take 1 (one) tablet by mouth once daily metoprolol succinate XL 24hr (TOPROL XL) 25 MG tablet Take 1 (one) tablet by mouth once daily mirtazapine (Remeron) 15 MG tablet Take 1 (one) tablet by mouth at bedtime 90 tablet 4 NIFEdipine CR 24hr (Adalat CC) 30 MG tablet Take 1 (one) tablet by mouth once daily Take on an empty stomach. 90 tablet 4 omeprazole (PriLOSEC) 20 MG capsule Take 1 (one) capsule by mouth 2 times daily, before breakfast and supper potassium chloride ER (Klor-Con M) 20 MEQ tablet Take 1 (one) tablet by mouth once daily 90 tablet 4 selexipag (Uptravi) 400 MCG tablet Take 1 (one) tablet by mouth 2 times daily tadalafil, PAH, (Adcirca) 20 MG tablet Take 2 (two) tablets by mouth once daily No current facility-administered medications for this visit. DATA: LABS: CBC: Recent Labs Component Name 08/26/24 0426 08/25/24 0026 05/17/24 1325 WBC 6.1 8.5 7.0 HGB 13.0 12.3 14.3 HCT 39.8 37.1 43.8 MCV 82.7 83.9 86.6 BMP: Recent Labs Component Name 08/26/246 08/25/24 0026 05/18/24 0034 NA 143 140 139 CL 110* 109* 111* CO2 21* 22 20* BUN 19 28* 19 CREATININE 1.34* 1.56* 1.28* CALCIUM 9.0 9.0 8.9 Lipid Panel: No results for input(s): LDLCALC, HDL in the last 80386 hours. ECHO: 09/2024 Summary * The left ventricle is mildly dilated, with normal systolic function and an estimated ejection fraction of 69 % by biplane method of disks. Left ventricular wall motion is normal. * Right ventricle is normal in size with normal systolic function. * Unable to assess pulmonary pressures due to a lack of tricuspid and pulmonic regurgitation. The RVOT flow pattern suggestive of elevated PA systolic pressure. * There is a small, circumferential pericardial effusion. There are no echocardiographic features of tamponade physiology. 05/2024 Summary * The left ventricle is normal [...] is a small and circumferential pericardial effusion. 09/2023 Left Ventricle: Left ventricle size is normal. Mildly increased wall thickness. Ventricular mass isnormal. Findings consistent with concentric remodeling. Normal systolic function. EF by 2D Grey biplane is 68%. Normal wall motion. Diastolic function is indeterminate. Right Ventricle: Right ventricle size is normal. Normal systolic function. Pericardium: Small pericardial effusion present. No indication of cardiac tamponade. Evidence includes no chamber collapse. No hemodynamically significant valvular abnormalities Summary Transthoracic and stress echocardiograms are normal by two-dimensional, color flow imaging,and Doppler interrogation. No significant valvular abnormalities. Systemic hypertension but no ischemia or pulmonary vascular dysfunction/no provoked pulmonary hypertension. No prior ECHO for comparison. Left ventricular chamber dimension, wall thickness, systolic and diastolic function are normal.No regional wall motion abnormalities. Left ventricular systolic function is normal with an ejection fraction by Biplane Method of Discs of 75 %. Right ventricle demonstrated normal chamber dimension, wall thickness, systolic and diastolic function. No regional wall motion abnormalities. Left atrium is normal in size with no evidence of mass or thrombus formation. Right Summary Transthoracic and stress echocardiograms are normal by two-dimensional, color flow imaging, and Doppler interrogation.No significant valvular abnormalities. Systemic hypertension but no ischemia or pulmonary vascular d ysfunction/no provoked pulmonary hypertension. No prior ECHO for comparison. Left ventricular chamber dimension, wall thickness, systolic and diastolic function are normal. No regional wall motion abnormalities. Left ventricular systolic function is normal with an ejection fraction by Biplane Method of Discs of 75 %. Right ventricle demonstrated normal chamber dimension, wall thickness, systolic and diastolic function. No regional wall motion abnormalities. Left atrium is normal in size with noevidence of mass or thrombus formation. Right atrium is normal in size with no evidence of mass or thrombus formation. Estimated right atrial pressure 3 mmHg. The aortic valve is normal to two-dimensional, color flow Doppler and Doppler interrogation. There is no significant aortic valve regurgitation or stenosis. There are no structural abnormalities. There is no aortic stenosis with a peak velocity of 1.2 m/sec, mean gradient of 4 mmHg, aortic valve area of 2.5 cm??, and an NSDI of 0.72. The pulmonary valve is normal to two-dimensional, color flow Doppler and Doppler interrogation. There isno significant pulmonary valve regurgitation or stenosis. There are no structural abnormalities. Normal PVR of 1.3 Wood units. The mitral valve is normal to two-dimensional, color flow Doppler and Doppler interrogation. There is no significant mitral valve regurgitation or stenosis. There are no structural abnormalities. Mitral valve area by 2D Planimetry is 5.81 cm2. Agitated Saline --- ml Clem Edwards RN Definity --- ml [place] TAMIKO Edwards Mitral valve regurgitant fraction by pulsed Doppler quantitative flow method is 3 %. The tricuspid valve is normal to two-dimensional, color flow Dopplerand Doppler interrogation. There is no significant tricuspid valve regurgitation or stenosis. Thereare no structural abnormalities. No pulmonary hypertension, estimated pulmonary arterial systolic pressure is 16 mmHg/mean PA pressure of 10 mmHg. The aortic root at the sinus of valsalva is normal in size measuring 2.57 cm with an index of 1.36 cm/m2. No plaque seen within the aorta. Pericardium is normal in appearance and the pericardial space contains no significant amount of fluid. Reduced exercise capacity, only 7 METS and 87 % max predicted heart rate (MPHR) achieved. No chest pain noted.Stress EKG is negative for ischemic changes. Abnormal rise in blood pressure during or after stress. Stress echo results attached. Supine bike stress echocardiogram with induced hypertension but normal improvement in ventricular systolic function without evidence of ischemia. Negative for ischemia.Immediate recovery Definity myocardial perfusion echocardiography revealed normal rapid (< 100 msec) complete perfusion in all segments and territories and no perfusion defects. With stress, improvement in the ejection fraction. With stress, left ventricular chamber does not decrease appropriately. With stress, improvement in LV and RV global systolic and diastolic function (E/PV ratio < 1.5 and E/E' ratios < 10). With stress, aortic valve mean gradient is 3.0 mmHg/valve area 2.56 cm2/no stenosis. With stress, tricuspid regurgitation is trivial. With stress, estimated pulmonary artery systolic pressure is normal, < 20 mmHg//mean PA pressure < 13 mmHg. Normal pulmonary vascular function with PVR of < 1.5 Wood units. With stress, mitral valve regurgitation is unchanged andtrivial (regurgitant fraction < 4%).atrium is normal in size with no evidence of mass or thrombus formation. Estimated right atrial pressure 3 mmHg. The aortic valve is normal to two-dimensional, color flow Doppler and Doppler interrogation. There is no significant aortic valve regurgitation or stenosis. There are no structural abnormalities. There is no aortic stenosis with a peak velocity of1.2 m/sec, mean gradient of 4 mmHg, aortic valve area of 2.5 cm??, and an NSDI of 0.72. The pulmonary valve is normal to two-dimensional, color flow Doppler and Doppler interrogation. There is no significant pulmonary valve regurgitation or stenosis. There are no structural abnormalities. Normal PVR of 1.3 Wood units. The mitral valve is normal to two-dimensional, color flow Doppler and Doppler in [facility]. There is no significant mitral valve regurgitation or stenosis. There are no structural abnormalities. Mitral valve area by 2D Planimetry is 5.81 cm2. Agitated Saline --- ml Clem Edwards RN Definity --- ml Clem Edwards RN Mitral valve regurgitant fraction by pulsed Doppler quantitative flow method is 3 %. The tricuspid valve is normal to two-dimensional, color flow Doppler and Doppler interrogation. There is no significant tricuspid valve regurgitation or stenosis. There are nostructural abnormalities. No pulmonary hypertension, estimated pulmonary arterial systolic pressureis 16 mmHg/mean PA pressure of 10 mmHg. The aortic root at the sinus of valsalva is normal in size measuring 2.57 cm with an index of 1.36 cm/m2. No plaque seen within the aorta. Pericardium is normal in appearance and the pericardial space contains no significant amount of fluid. Reduced exercise capacity, only 7 METS and 87 % max predicted heart rate (MPHR) achieved. No chest pain noted. StressEKG is negative for ischemic changes. Abnormal rise in blood pressure during or after stress. Stress echo results attached. Supine bike stress echocardiogram with induced hypertension but normal improvement in ventricular systolic function without evidence of ischemia. Negative for ischemia. Immediate recovery Definity myocardial perfusion echocardiography revealed normal rapid (< 100 msec) com plete perfusion in all segments and territories and no perfusion defects. With stress, improvement in the ejection fraction. With stress, left ventricular chamber does not decrease appropriately. With stress, improvement in LV and RV global systolic and diastolic function (E/PV ratio < 1.5 and E/E' ratios < 10). With stress, aortic valve mean gradient is 3.0 mmHg/valve area 2.56 cm2/no steno sis. With stress, tricuspid regurgitation is trivial. With stress, estimated pulmonary artery systolic pressure is normal, < 20 mmHg//mean PA pressure < 13 mmHg. Normal pulmonary vascular function with PVR of < 1.5 Wood units. With stress, mitral valve regurgitation is unchanged and trivial (regurgitant fraction < 4%). Due to the nature of this patient's serious and/or complex condition of HFpEF, PAH, HTN, Atherosclerosis we have discussed the need for continuity of care and the importance of collaborating with me and my care team to ensure all their healthcare needs are met. The total time spent today in the visit with the patient, performing chart preparation, review of data, and documentation, not related toany procedure or preventative visit services was 35 minutes. Dariana Malik DNP, OFFICE EQUIPMENT MECHANIC, DATA WAREHOUSE ADMINISTRATOR-BC [facility] documented in this encounter Plan of Treatment Upcoming Encounters Date Type Department Care Team (Late st Contact Info) Description 02/05/2025 8:00 AM CDT Office Visit [facility] - Pulmonology [address] [facility], [place] [phone] Brandon Hudson MD [address] [facility] 2L DIV OF PULMONARY/[place] [phone] 02/08/2025 2:00 PM CDT Office Visit [facility] - Rheumatology [address] [place] [address], [place] [phone] Abrahan Reynaga MD [address] [facility] 2L [place] [phone] 04/26/2025 11: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 Office Visit [facility] - Cardiology [address], [address] [phone] Dariana Malik APRN-FELT CARBONIZER [address] [address] 05/11/2025 8: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 Office Visit [facility] - Pulmonology [address] [place] [address], [place] [phone] Brandon Hudson MD [facility] [facility] 2L DIV OF PULMONARY/[place] [phone] Scheduled Orders Name Type Priority Associated Diagnoses Orde r Schedule COMPREHENSIVE METABOLIC PANEL Lab Routine Primary hypertension Ordered: 01/18/2025 LIPID PROFILE Lab Routine Primary hypertension Atherosclerosis of aorta Ordered: 01/18/2025 documented as of this encounter Visit Diagnoses Diagnosis Primary hypertension- Primary Unspecified essential hypertension Atherosclerosis of aorta 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
--- OUTSIDE RECORDS SUMMARY | 2025-01-18 13:27 | XMS_ITS | Clinical Summary ---
Author Organization [facility] [employer] Address [address] [place] [address] Care Team Providers Care Squad Leader Name Role Phone Elisa Harris Primary Care Provider [phone] Source Comments [facility] [employer],non-owned Affiliates and Associated Physician Practices is amultiple site organization consisting of ambulatory clinics and hospital sitesin [place] and [place]. This disclosure is being madepursuant to the Care Everywhere program and may not contain all information available regarding this patient. 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),Diffusion capacity of lung (dl), decreased,Sclero derma (HCC),Acute on chronic right heart failure (HCC) Take 1 (one) tablet by mouth 2 times daily 180 tablet 3 5 Active dapagliflozin propanediol (Farxiga) 10 MG tablet Take 1 (one) tablet by mouth every morning 90 tablet 3 5 Active aspirin (Aspirin) 81 MG chew tablet Take 1 (one) tablet by mouth once daily (chew and swallow) 90 tablet 3 5 Active Active Problems Problem Noted Date Diagnosed Date Pulmonary hypertension associated with sarcoidos is 08/25/2024 Acute on chronic right heart failure 08/25/2024 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 05/20/2024 Recurrent major depressive disorder, in [facility] n 05/18/2024 Stage 3a chronic kidney disease [...] Encounters Date Type Department Care Team Description 01/18/2025 11:00 AM CDT Office Visit [facility] - Cardiology [address] [facility] [place] [phone] Dariana Malik APRN-[place] Primary hypertension (Primary Dx); Atherosclerosis of aorta; 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); Chronic right-sided heart failure (HCC) 12/22/2024 Telephone [facility] - Pulmonology [address] [facility] [place] [address] Flavia Caraballo, RN Follow-up 12/08/2024 Travel 11/24/2024 Orders Only [facility] - Pulmonology [address] [place] [address] Brandon Hudson MD 11/19/2024 Orders Only [facility] - Pulmonology [address] [place] [address] Brandon Hudson MD 11/19/2024 Orders Only [facility] - Pulmonology [address] [place] [phone] rBandon Hudson MD 11/04/2024 Orders Only [facility] - Pulmonology [address] [place] [address], [place] [address] Brandon Hudson MD 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); Diffusion capacity of lung (dl), decreased; Scleroderma (HCC); Acute on chronic right heart failure (HCC) 10/30/2024 Telephone [facility] - Pulmonology [facility] [place] [phone] Flavia Caraballo, RN Follow-up 10/21/2024 Orders Only [facility] - Pulmonology [address] [place] [address], [place] [phone] Brandon Hudson MD 10/21/2024 Telephone [facility] - Pulmonology [address] [place] [address], [place] [phone] Flavia Caraballo, TAMIKO Returned Call (/) from Last 3 Months Immunizations Immunization Administration [...] Recorded Patient Health Questionnaire-2 Score 0 06/22/2024 [facility] - Occupational Stress [...] time in the past 12 m [facility], were you homeless or living in a fci (including now)? 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 Not on file Last Filed Vital Signs Vital Sign Reading Time Taken Comments Blood Pressure 110/78 01/18/2025 10:45 AM CDT Pulse 70 01/18/2025 10:45 AM CDT Temperature 36.8 C (98.2 F) 08/26/2024 11:40 AM CDT Respiratory Rate 17 10/13/2024 10:04 AM CDT Oxygen Saturation 95% 10/13/2024 10:04 AM CDT Inhaled Oxygen Concentration - - Weight 72.6 kg (160 lb) 01/18/2025 10:45 AM CDT Height 162.6 cm (5' 4) 01/18/2025 10:45 AM CDT Body Mass Index 27.46 01/18/2025 10:45 AM CDT Plan of Treatment Upcoming Encounters Date Type Department Care Team (Late st Contact Info) Description 02/05/2025 8:00 AM CDT Office Visit [facility] - Pulmonology [address] [place] [phone] Brandon Hudson MD [address] [place] [address] 2L DIV OF PULMONARY/[place] [phone] 02/08/2025 2:00 PM CDT Office Visit [facility] - Rheumatology [address] [place] [phone] Abrahan Reynaga MD [facility] [facility] 2L [place] [phone] 04/26/2025 11:00 AM BALE COVERER Office Visit [facility] - Cardiology [address] [facility], [address] [phone] Dariana Malik, TEJAS-BREAD DUMPER [phone] [place] [address] 05/11/2025 8:00 AM BALE COVERER Office Visit [facility] - Pulmonology [address] [facility] [place] [address] Brandon Hudson MD [facility] [facility] 2L DIV OF PULMONARY/[place] [phone] Health Maintenance Due Date Last Done Comments [...] (1 of 2) 2014 COVID-19 VACCINE ( season) 2024 03/10/2021, 06/10/2020, 05/20/2020 Respiratory Syncytial [...] 7 - 26 mg/dL 08/26/2024 5:04 AM [facility] Creatinine 1.34(H) 0.56 - 0.96 mg/dL 08/26/2024 5:04 AM [facility] Sodium 143 136 - 145 mmol/L 08/26/2024 5:04 AM [facility] Potassium 3.4(L) 3.5 - 4.5 mmol/L 08/26/2024 5:04 AM [facility] Chloride 110(H) 98 - 107 mmol/L 08/26/2024 5:04 AM [facility] CO2 21(L) 22 - 29 mmol/L 08/26/2024 5:04 AM [facility] Glucose 101(H) 70 - 99 mg/dL 08/26/2024 5:04 AM [facility] Albumin 3.8 3.4 - 5.0 g/dL 08/26/2024 5:04 AM [facility] Calcium 9.0 8.4 - 10.2 mg/dL 08/26/2024 5:04 AM [facility] Phosphorus 3.9 2.9 - 5.1 mg/dL 08/26/2024 5:04 AM [facility] Anion Gap 12 6 - 16 08/26/2024 5:04 AM [facility] BUN/Creatinine Ratio 14 7 - 23 08/26/2024 5:04 AM [facility] Osmolality Calculated 298(H) 275 - 295 mOsm/kg 08/26/2024 5:04 AM [facility] eGFR by CKD-EPI 46(L) >=90 mL/min/1.7 3 m2 08/26/2024 5:04 AM CDT [facility] Blood BLOOD SPECIMEN / Unknown Lab Venipuncture / Unknown 08/26/2024 4:26 AM CDT 08/26/2024 4:39 AM CDT Lydia Rivera MD LAB - CHEMISTRY ORDERABLES nal Result [facility] [address] [place] [address], [facility] [phone] * (ABNORMAL) LIPID PROFILE (02/17/2009 11:48 AM [...] PM CDT Narrative Resulting Agency Comment [facility] [address] [facility] [phone] Faviola Mandel MD LAB - CHEMISTRY ORDERABLES Fin al Result [facility] ACCOUNT BILL [address] [place] [address] from Last 3 Months or Most Recently Relevant to Health Maintenance Insurance [facility] Advance Directives * Full Code (Latest Code Status on File) Date Activated Date Inactivated Comments 08/25/2024 4:54 PM 08/26/2024 4:27 PM * Full Code Date Activated Date Inactivated Comments 05/17/2024 9:51 PM 05/20/2024 3:01 PM Care Teams Squad Leader Relationship Specialty Start Date End Date Elisa Harris [address] [place] [phone] PCP - General 05/25/24
[2025-01-18 13:47] LABS: Alanine Aminotransferase 16 U/L (6-35); Albumin Level 4.5 g/dL (3.5-5.1); Alkaline Phosphatase 71 U/L (38-126); Anion Gap 12 mmol/L (4-12); Aspartate Amino Transferase 26 U/L (14-36); Bilirubin,Total 0.4 mg/dL (0.2-1.3); Blood Urea Nitrogen 38 mg/dL (7-17); Calcium 9.5 mg/dL (8.4-10.2); Carbon Dioxide 24 mmol/L (22-30); Chloride 105 mmol/L (98-107); Estimated Glomerular Filt Rate 30; Glucose 98 mg/dL (65-110); Potassium 3.9 mmol/L (3.4-5.0); Sodium 141 mmol/L (137-145); Total Protein 7.6 g/dL (6.3-8.2)
== END 2025-01-18 12:52 | disposition home or self-care (01) ==
LOC: ANHLAB 12:52
DX: I12.9 Hypertensive chronic kidney disease with stage 1 through stage 4 chronic kidney disease, or unspecified chronic kidney disease (principal); N18.30 Chronic kidney disease, stage 3 unspecified
CPT/HCPCS: 36415; 80053; 85025